=== PATIENT | female | born 1955 | race Caucasian/White ===

== ENCOUNTER → 2016-10-19 | Outpatient (CLI) | payer MEDICARE, MEDICAID ==
[2016-03-28 14:33] VITALS: BP 126/80
[~2016-10-19] MED LIST: APIX2.5T PO; APIX5TAB PO; CIPR500T94 PO; ESTRIOL PO; HYDR-2666 PO; HYDR12.53 PO; LEVO750T31 PO; PHEN-318 PO; POT CITRATE PO; SIMV40TA3 PO; SULF1TAB24 PO; WARF10TA PO; cipro
--- NOTE | 2016-10-19 16:32 | RAD ---
CT scan of the abdomen and pelvis without contrast 10/19/2016 Clinical history: CLL. History of renal calculi. Technique: After the oral administration of contrast only, contiguous, 5 mm axial sections were obtained through the abdomen and pelvis. One or more of the following individualized dose reduction techniques were utilized for this study: 1. Automated exposure control. 2. Adjustment of the mA and/or kV according to patient size. 3. Use of iterative reconstruction technique. Findings: Comparison study is dated 02/23/2014. Images through the lung bases demonstrate minimal dependent subsegmental atelectasis bilaterally. The liver, spleen, pancreas and adrenal glands are within normal limits. No focal abnormality of the left kidney is seen. Moderate to severe right hydronephrosis is seen. 3 nonobstructing calculi are seen involving the right kidney. These measure 1 mm to 3 mm in size. Moderate right hydroureter is noted. Within the distal right ureter 2 calculi are seen which measure 6 mm and 8 mm in size. The larger calculus is causing moderate to severe obstruction of the right collecting system. This calculus is approximately 8 cm superior to the expected location the right UVJ. Thinning of the cortex of the right kidney is noted. The double-J ureteral stent has been removed from the right collecting system since the previous examination. An IVC filter is again noted in place. Mild scattered atherosclerotic plaque formation seen involving the abdominal aorta. The abdominal aorta tapers normally. Surgical clips are seen within the gallbladder fossa consistent with a cholecystectomy. Patchy areas of increased attenuation are seen within the retroperitoneal and mesenteric fat essentially unchanged. Prominent retroperitoneal and mesenteric lymph nodes are seen essentially unchanged. No free fluid or free air is seen within the abdomen. There is no evidence of bowel obstruction. Images through the pelvis demonstrate the urinary bladder distended with urine. 2 calcification are seen in the expected location of the distal right ureter near the right UVJ which may represent nonobstructing distal ureteral calculi. They measure 2 to 4 mm in size. No free fluid is seen. Degenerative changes are seen involving the lower lumbar spine. Impression: A 8 mm calculus is seen involving the distal right ureter which is causing moderate to severe obstruction of the right collecting system.
== END | disposition home or self-care (01) ==
LOC: CT 11:48
PROVIDERS: ATTEND Nurse Practitioner Family
DX: N20.1 Calculus of ureter (principal)
CPT/HCPCS: 74176

== ENCOUNTER → 2016-11-10 | Outpatient (CLI) | payer MEDICARE ==
[2016-03-28 14:33] VITALS: BP 126/80
[~2016-11-10] MED LIST changes: -WARF10TA PO; +WARF10TA45 PO
[2016-11-10 14:46] LABS: BASO % 1 % (0-3); EOS % 5 % (0-3); HEMATOCRIT 49.2 % (36.0-47.0); HEMOGLOBIN 16.8 g/dL (12.0-15.5); LYMPH # 2.9 x10^3/uL (1.0-4.8); LYMPH % 38 % (24-48); MEAN CORPUSCULAR HEMOGLOBIN 32 pg (25-35); MEAN CORPUSCULAR HGB CONC 34 g/dL (31-37); MEAN CORPUSCULAR VOLUME 93 fL (79-100); MONO % 14 % (0-9); NEUT % 43 % (31-73); PLATELET COUNT 296 x10^3/uL (140-400); RED CELL DISTRIBUTION WIDTH 16.2 % (11.5-14.5); WHITE BLOOD COUNT 7.5 x10^3/uL (4.0-11.0)
[2016-11-10 14:52] LABS: CREATININE 1.5 mg/dL (0.6-1.0); GFR 35.2
[2016-11-10 14:55] LABS: CALCIUM 9.8 mg/dL (8.5-10.1)
== END | disposition home or self-care (01) ==
LOC: LAB 14:16
PROVIDERS: ATTEND Urology
DX: N20.0 Calculus of kidney (principal)
CPT/HCPCS: 36415; 80048; 85027

== ENCOUNTER 2016-12-06 19:08 | Inpatient (IN) | payer MEDICARE ==
[~2016-12-06] VITALS: Ht 162.6 cm; Wt 91.2 kg
[2016-12-06 19:27] LABS: BILIRUBIN,URINE NEGATIVE (NEG); GLUCOSE,URINE NEGATIVE (NEG); NITRITE,URINE NEGATIVE (NEG); PROTEIN,URINE 30 mg/dL (NEG-TRACE); UROBILINOGEN,URINE 0.2 mg/dL (0.2 mg/dL)
[2016-12-06 19:31] LABS: BACTERIA,URINE FEW /HPF (0-FEW); SQUAMOUS EPITHELIAL CELL,UR FEW /LPF; WBC,URINE TNTC /HPF (0-4)
[2016-12-06 19:40] LABS: BASO # 0.1 x10^3/uL (0.0-0.2); BASO % 1 % (0-3); EOS % 1 % (0-3); HEMATOCRIT 50.2 % (36.0-47.0); HEMOGLOBIN 16.5 g/dL (12.0-15.5); LYMPH # 2.7 x10^3/uL (1.0-4.8); LYMPH % 22 % (24-48); MEAN CORPUSCULAR HEMOGLOBIN 31 pg (25-35); MEAN CORPUSCULAR HGB CONC 33 g/dL (31-37); MEAN CORPUSCULAR VOLUME 95 fL (79-100); MONO % 12 % (0-9); NEUT % 65 % (31-73); PLATELET COUNT 282 x10^3/uL (140-400); RED BLOOD COUNT 5.28 x10^6/uL (3.50-5.40); RED CELL DISTRIBUTION WIDTH 16.2 % (11.5-14.5)
[2016-12-06] MEDS ORDERED: IV NORMAL SALINE 500ML BAG 500 ML IV ONE (19:45)
[2016-12-06] MEDS ORDERED: ONDANSETRON PF 4 MG/2 ML VIAL. IV ONE (19:45)
[2016-12-06] MEDS ORDERED: ACETAMINOPHEN 325 MG TABLET. PO ONE (19:45)
[2016-12-06 19:51] LABS: CALCIUM 10.4 mg/dL (8.5-10.1); CREATININE 1.6 mg/dL (0.6-1.0); GFR 32.7; POTASSIUM 3.8 mmol/L (3.5-5.1)
[2016-12-06 19:57] LABS: ALBUMIN 3.6 g/dL (3.4-5.0); ALBUMIN/GLOBULIN RATIO 0.7 (1.0-1.7); TOTAL BILIRUBIN 1.1 mg/dL (0.2-1.0); TOTAL PROTEIN 8.6 g/dL (6.4-8.2)
--- NOTE | 2016-12-06 20:02 | RAD ---
CT Abdomen and Pelvis without contrast History: LOWER ABDOMINAL PAIN; NAUSEA, history of urinary tract infection Technique: Noncontrast CT imaging was performed of the abdomen and pelvis. Multiplanar images are reviewed. Exposure: One or more of the following individualized dose reduction techniques were utilized for this examination: 1. Automated exposure control 2. Adjustment of the mA and/or kV according to patient size 3. Use of iterative reconstruction technique. Comparison: October 15, 2013 Findings: There is more focal infiltrate of the visualized left upper lobe. There is mild atelectasis of the lower lobes. Accurate evaluation of abdominal visceral organs is limited without intravenous contrast. There is no new obvious focal abnormality of the liver, spleen, pancreas. There is again diffuse hazy density of the mesenteric fat centrally and to the left, interspersed nonspecific nodes as seen previously. Dominant left mesenteric node measures 1.5 cm short axis dimension although stable. There is again inferior vena cava filter. There is again severe right hydronephrosis and moderate right hydroureter. There are 2 adjacent approximate 6 mm calculi in the mid right ureter and another calculus 5 mm just distally. There is also a 6 mm calculus at the right ureterovesical junction. Previously seen right ureteral stent has been removed. There are 4 right renal calculi, largest 3 mm. There is no left hydronephrosis or renal calculus. There is no adrenal nodularity. Accurate evaluation of bowel is limited without oral contrast. There is no significant bowel dilatation, free air, free fluid. There is retained stool greatest of the transverse and right colon. Impression: 1. There is severe right hydronephrosis and moderate right hydroureter, 4 calculi in the mid to distal right ureter. There are right renal calculi. 2. There is left upper lobe lung infiltrate. 3. Similar to 2013 exam, there is fairly diffuse hazy density of the central and left mesenteric fat with interspersed nonspecific nodes including enlarged node on the left. Etiology is uncertain. Electronically signed by: aFbricio Vasquez MD (12/06/2016 7:59 PM)
--- NOTE | 2016-12-06 20:05 | PHYS DOC ---
Past Medical History Past Medical History: Cancer, DVT, Kidney Stone, MRSA, Other Additional Past Medical Histor: CLL; BONE MARROW REPLACEMENT,EBSL Past Surgical History: Cholecystectomy, Other Additional Past Surgical Histo: HERNIA REPAIR; BMT Alcohol Use: Occasionally Drug Use: None Adult General Chief Complaint Chief Complaint: NAUSEA/VOMITING/DIARRHA HPI HPI 61-year-old female presenting the emergency department with suprapubic abdominal pain. She describes it as a cramping sensation in the lower abdomen nonradiating mild intermittent and present for the past 24-48 hrs. She is currently on Macrobid for antibiotic therapy for UTI. She has a history of being in sepsis. Review of systems is positive for nausea. Negative for vomiting fevers chills shortness of breath or chest pain. All other review of systems is negative unless otherwise noted in history of present illness. Review of Systems Review of Systems SEE ABOVE. Current Medications Current Medications Current Medications Medications (Trade) Dose Ordered Sig/Maile Start Time Stop Time Status Last Admin Dose Admin Acetaminophen (Tylenol) 650 mg 1X ONCE 12/06/16 19:45 12/06/16 19:46 DC 12/06/16 19:51 650 MG Ondansetron HCl (Zofran) 4 mg 1X ONCE 12/06/16 19:45 12/06/16 19:46 DC 12/06/16 19:51 4 MG Sodium Chloride 500 ml @ 500 mls/hr 1X ONCE 12/06/16 19:45 12/06/16 20:44 DC 12/06/16 19:52 500 MLS/HR Allergies Allergies Allergies Coded Allergies Type Severity Reaction Last Updated Verified Iodinated Contrast Media - Oral and Allergy Intermediate hives 03/27/16 Yes codeine Allergy Intermediate Gi upset, hives 11/16/13 Yes iodine Allergy Intermediate hives 11/16/13 Yes I S O L A T I O N *CONTACT* Allergy Unknown 11/14/14 Yes prochlorperazine edisylate Adverse Reaction Intermediate GI upset 02/26/14 Yes prochlorperazine maleate Adverse Reaction Intermediate GI upset 02/26/14 Yes Physical Exam Physical Exam Constitutional: Well developed, well nourished, no acute distress, non-toxic appearance. HENT: Normocephalic, atraumatic, bilateral external ears normal, oropharynx moist, no oral exudates, nose normal. [] Eyes: PERRLA, EOMI, conjunctiva normal, no discharge. [] Neck: Normal range of motion, no tenderness, supple, no stridor. [] Cardiovascular:Heart rate regular rhythm, no murmur Lungs & Thorax: Bilateral breath sounds clear to auscultation [] Abdomen: abd is soft and minamally tender in the suprapubic region , without rebound tenderness or guarding. Skin: Warm, dry, no erythema, no rash. Back: No tenderness, no CVA tenderness. [] Extremities: No tenderness, no cyanosis, no clubbing, ROM intact, no edema. [] Neurologic: Alert and oriented X 3, normal motor function, normal sensory function, no focal deficits noted. Psychologic: Affect normal, judgement normal, mood normal. [] Current Patient Data Vital Signs Vital Signs Date Time Temp Pulse Resp B/P (MAP) Pulse Ox O2 Delivery O2 Flow Rate FiO2 12/06/16 19:56 108 20 124/75 (91) 100 Room Air 12/06/16 19:24 99.1 99.1 Lab Values Laboratory Tests Test 12/06/16 19:15 12/06/16 19:30 Urine Collection Type Unknown Urine Color Yellow Urine Clarity Clear Urine pH 7.0 Urine Specific [place] 1.015 Urine Protein 30 mg/dL (NEG-TRACE) Urine Glucose (UA) Negative mg/dL (NEG) Urine Ketones (Stick) Negative mg/dL (NEG) Urine Blood Moderate (NEG) Urine Nitrite Negative (NEG) Urine Bilirubin Negative (NEG) Urine Urobilinogen Dipstick 0.2 mg/dL (0.2 mg/dL) Urine Leukocyte Esterase Large (NEG) Urine RBC 1-2 /HPF (0-2) Urine WBC Tntc /HPF (0-4) Urine Squamous Epithelial Cells Few /LPF Urine Bacteria Few /HPF (0-FEW) Urine Mucus Slight /LPF White Blood Count 12.0 x10^3/uL (4.0-11.0) H Red Blood Count 5.28 x10^6/uL (3.50-5.40) Hemoglobin 16.5 g/dL (12.0-15.5) H Hematocrit 50.2 % (36.0-47.0) H Mean Corpuscular Volume 95 fL (79-100) Mean Corpuscular Hemoglobin 31 pg (25-35) Mean Corpuscular Hemoglobin Concent 33 g/dL (31-37) Red Cell Distribution Width 16.2 % (11.5-14.5) H Platelet Count 282 x10^3/uL (140-400) Neutrophils (%) (Auto) 65 % (31-73) Lymphocytes (%) (Auto) 22 % (24-48) L Monocytes (%) (Auto) 12 % (0-9) H Eosinophils (%) (Auto) 1 % (0-3) Basophils (%) (Auto) 1 % (0-3) Neutrophils # (Auto) 7.7 x10^3uL (1.8-7.7) Lymphocytes # (Auto) 2.7 x10^3/uL (1.0-4.8) Monocytes # (Auto) 1.4 x10^3/uL (0.0-1.1) H Eosinophils # (Auto) 0.1 x10^3/uL (0.0-0.7) Basophils # (Auto) 0.1 x10^3/uL (0.0-0.2) Sodium Level 140 mmol/L (136-145) Potassium Level 3.8 mmol/L (3.5-5.1) Chloride Level 102 mmol/L (98-107) Carbon Dioxide Level 25 mmol/L (21-32) Anion Gap 13 (6-14) Blood Urea Nitrogen 14 mg/dL (7-20) Creatinine 1.6 mg/dL (0.6-1.0) H Estimated GFR (Cockcroft-Gault) 32.7 BUN/Creatinine Ratio 9 (6-20) Glucose Level 123 mg/dL (70-99) H Calcium Level 10.4 mg/dL (8.5-10.1) H Total Bilirubin 1.1 mg/dL (0.2-1.0) H Aspartate Amino Transferase (AST) 47 U/L (15-37) H Alanine Aminotransferase (ALT) 39 U/L (14-59) Alkaline Phosphatase 162 U/L (46-116) H Troponin I Quantitative < 0.017 ng/mL (0.000-0.055) Total Protein 8.6 g/dL (6.4-8.2) H Albumin 3.6 g/dL (3.4-5.0) Albumin/Globulin Ratio 0.7 (1.0-1.7) L Lipase 195 U/L (73-393) Laboratory Tests 12/06/16 19:30 Laboratory Tests 12/06/16 19:30 EKG EKG [] Radiology/Procedures Radiology/Procedures [] Course & Med Decision Making Course & Med Decision Making Pertinent Labs and Imaging studies reviewed. (See chart for details) [] 61-year-old female presenting to the ED with N/V and suprapubic abd pain. Afebrile with tachycardia. Otherwise blood pressure within normal limits. IV established and blood work taken. Saline given. CT the abdomen pelvis obtained. Urinalysis shows UTI. Patient is currently on antibiotic therapy. Review of recent cultures show susceptible organisms. CT the abdomen and pelvis showed pneumonia. Given the patient's pneumonia and urinary tract infection with failure to respond outpatient antibiotics, the patient was admitted for IV antibiotics. She was given broad-spectrum antibiotics and infectious disease was consulted. The patient was then admitted to her primary care physician for further evaluation workup and care. Dragon Disclaimer Dragon Disclaimer This electronic medical record was generated, in whole or in part, using a voice recognition dictation system. Departure Departure Impression: Primary Impression: UTI (lower urinary tract infection) Additional Impressions: Abdominal pain Pneumonia Disposition: ADMITTED INPATIENT Condition: STABLE Referrals: LIZ MANZO MD (PCP) Patient Instructions: Urinary Tract Infection Problem Qualifiers PATRICK EVANS MD December 06, 2016 20:05
[2016-12-06] MEDS ORDERED: MORPHINE SULFATE 2 MG/ML DISP.SYRIN. IV PRN (20:15)
[2016-12-06] MEDS ORDERED: ONDANSETRON PF 4 MG/2 ML VIAL. IV PRN (20:15)
[2016-12-06] MEDS ORDERED: PIP/TAZO PER PHARMACY MC PRN (21:15)
[2016-12-06] MEDS ORDERED: VANCOMYCIN PER PHARMACY MC PRN (21:15)
[2016-12-06 21:30] VITALS: BP 109/65
[2016-12-06] MEDS ORDERED: PIPERACILLIN/TAZOBACTAM 3.375 GM in IV NORMAL SALINE 50ML 50 ML IV ONE (21:30)
[2016-12-06] MEDS: IV NORMAL SALINE 1000ML BAG 1,000 ML IV SCH (21:38)
--- NOTE | 2016-12-06 21:48 | ACF ---
Admit Criteria Forms Admit Criteria Forms Admit Criteria Forms URINARY COMPLICATIONS Clinical Indications for Inpatient Care (Place 'X' for any and all applicable criteria): Ongoing inpatient care may be indicated for urinary complications with ANY ONE of the following: [X ]I. Urinary tract infection requiring inpatient care as indicated by ANY ONE of the following(8)(19)(20): [ ]a) Severe symptoms (eg, high fever, severe pain) [ ]b) Vomiting or dehydration requiring ongoing inpatient care [X]c) IV antibiotic needs that cannot be managed at lower level of care [ ]d) Hemodynamic instability [ ]e) Obstruction of collecting system by stone or tumor [ ]II. Urinary retention requiring drainage or surgery (3)(4)(5)(17)(18) [ ]III. Renal failure (Use Renal Failure Criteria for further information.) [ ]IV. Oliguria(30) [ ]V. Post obstructive diuresis requiring close monitoring of urine output and intravenous compensation for excessive fluid losses(33) Extended stay beyond goal length of stay for primary condition may be needed until ALL of the following are present(3)(4)(5)(8): [ ]a) Renal function (creatinine) at baseline, or daily decreases in creatinine consistent with renal function return [ ]b) Voiding adequately or with urinary catheter or percutaneous suprapubic tube and management regimen in place that is performable at lower level of care. [ ]c) Urine output adequate [ ]d) Fever absent or resolving [ ]e) Infection absent or treatable at next level of care The original [employer] content created by [employer] has been revised. The portions of the content which have been revised are identified through the use of italic text or in bold, and [facility] has neither reviewed nor approved the modified material. All other unmodified content is copyright [facility] Please see references footnoted in the original [facility] center[facility] edition 2016 TORIE WEATHERS December 06, 2016 21:48
[2016-12-06] MEDS ORDERED: VANCOMYCIN 2 GM in IV NORMAL SALINE 500ML BAG 500 ML IV ONE (22:00)
[2016-12-06 22:49] VITALS: BP 96/58
[2016-12-07 03:00] VITALS: BP 129/76
[2016-12-07] MEDS ORDERED: diphenhydrAMINE 50 MG/ML VIAL IVP ONE (03:00)
[2016-12-07] MEDS ORDERED: PIPERACILLIN/TAZOBACTAM 2.25 GM in IV NORMAL SALINE 50ML 50 ML IV SCH (06:00)
[2016-12-07 07:30] VITALS: BP 125/69
[2016-12-07 07:37] LABS: BASO # 0.1 x10^3/uL (0.0-0.2); BASO % 1 % (0-3); EOS % 1 % (0-3); HEMATOCRIT 45.3 % (36.0-47.0); HEMOGLOBIN 14.9 g/dL (12.0-15.5); LYMPH # 2.7 x10^3/uL (1.0-4.8); LYMPH % 24 % (24-48); MEAN CORPUSCULAR HEMOGLOBIN 32 pg (25-35); MEAN CORPUSCULAR HGB CONC 33 g/dL (31-37); MEAN CORPUSCULAR VOLUME 97 fL (79-100); MONO % 17 % (0-9); NEUT % 58 % (31-73); PLATELET COUNT 243 x10^3/uL (140-400); RED BLOOD COUNT 4.69 x10^6/uL (3.50-5.40); RED CELL DISTRIBUTION WIDTH 16.2 % (11.5-14.5); WHITE BLOOD COUNT 11.5 x10^3/uL (4.0-11.0)
[2016-12-07 07:45] LABS: CALCIUM 9.6 mg/dL (8.5-10.1); CREATININE 1.6 mg/dL (0.6-1.0); GFR 32.7; POTASSIUM 4.4 mmol/L (3.5-5.1)
--- NOTE | 2016-12-07 08:24 | PDOC1 ---
History and Physical Date of Admission Date of Admission DATE: 12/07/16 TIME: 08:18 Identification/Chief Complaint Chief Complaint abd pain Problems: Source Source: Chart review, Patient History of Present Illness History of Present Illness Ms. Burton is a 61-year-old female admit w/ worsening suprapubic abdominal pain. She describes it as a cramping sensation in the lower abdomen. She feels better this AM, but had a rough night, with a skin reaction to vancomycin, reddened skin, and weakness.; She has recurrent UTI, was nonradiating mild intermittent and present for the past 24-48 hrs. She is currently on Macrobid for antibiotic therapy for UTI. She has a history of being in sepsis. Review of systems is positive for nausea. Negative for vomiting fevers chills shortness of breath or chest pain. All other review of systems is negative unless otherwise noted in history of present illness. Past Medical History Past Medical History Allo BMT 11 years ago for CLL, has been off immunesuppression almost 9 years Cardiovascular: HTN Pulmonary: Other CENTRAL NERVOUS SYSTEM: TIA Heme/Onc: Cancer, Other Musculoskeletal: low back pain Rheumatologic: No pertinent hx Infectious disease: No pertinent hx Renal/: UTI, Other Past Surgical History Past Surgical History: Hernia Repair, Hysterectomy Family History Family History: No Significant Social History Smoke: No ALCOHOL: none Drugs: None Current Problem List Problem List Problems Medical Problems: (1) Abdominal pain Status: Acute (2) Pneumonia Status: Acute (3) UTI (lower urinary tract infection) Status: Acute Problems: Current Medications Current Medications Current Medications Sodium Chloride 500 ml @ 500 mls/hr 1X ONCE IV Last administered on 19:52; Start 12/06/16 at 19:45; Stop 12/06/16 at 20:44; Status DC Ondansetron HCl (Zofran) 4 mg 1X ONCE IV Last administered on 12/06/16 19:51 ; Start 12/06/16 at 19:45; Stop 12/06/16 at 19:46; Status DC Acetaminophen (Tylenol) 650 mg 1X ONCE PO Last administered on 12/06/16 19:51 ; Start 12/06/16 at 19:45; Stop 12/06/16 at 19:46; Status DC Ondansetron HCl (Zofran) 4 mg PRN Q8HRS PRN IV NAUSEA/VOMITING; Start 12/06/16 at 20:15; Stop 12/07/16 at 20:14 Morphine Sulfate 2 mg PRN Q2HR PRN IV PAIN; Start 12/06/16 at 20:15; Stop 12/07 at 20:14 Sodium Chloride 1,000 ml @ 125 mls/hr Q8H IV Last administered on 12/06/16 21 :38; Start 12/06/16 at 20:13; Stop 12/07/16 at 20:12 Vancomycin HCl (Vanco Per Pharmacy) 1 each PRN DAILY PRN MC SEE COMMENTS Last administered on 12/07/16 02:17; Start 12/06/16 at 21:15; Stop 12/07/16 at 02:28 ; Status DC Piperacillin Sod/ Tazobactam Sod (Zosyn Per Pharmacy) 1 each PRN DAILY PRN MC SEE COMMENTS; Start 12/06/16 at 21:15 Vancomycin HCl 2 gm/Sodium Chloride 500 ml @ 250 mls/hr 1X ONCE IV Last administered on 12/06/16 22:00; Start 12/06/16 at 22:00; Stop 12/07/16 at 02:23 ; Status DC Piperacillin Sod/ Tazobactam Sod 3.375 gm/Sodium Chloride 50 ml @ 100 mls/hr 1X ONCE IV Last administered on 12/06/16 21:38; Start 12/06/16 at 21:30; Stop 12/06/16 at 21:59; Status DC Piperacillin Sod/ Tazobactam Sod 2.25 gm/Sodium Chloride 50 ml @ 100 mls/hr Q6HRS IV Last administered on 12/07/16 05:51; Start 12/07/16 at 06:00 Vancomycin HCl 1.5 gm/Sodium Chloride 500 ml @ 250 mls/hr Q24H IV ; Start 12/07 at 22:00; Stop 12/07/16 at 22:00; Status DC Vancomycin HCl 1 each 1X ONCE MC ; Start 12/08/16 at 21:30; Stop 12/08/16 at 21 :30; Status DC Diphenhydramine HCl (Benadryl) 25 mg 1X ONCE IVP Last administered on 02:42; Start 12/07/16 at 03:00; Stop 12/07/16 at 03:01; Status DC Active Scripts Active Hydrocodone-Apap 5-325 (Hydrocodone Bit/Acetaminophen) 1 Each Tablet 1 Tab PO PRN Q4HRS PRN Eliquis (Apixaban) 5 Mg Tablet 5 Mg PO BID 30 Days Eliquis (Apixaban) 5 Mg Tablet 10 Mg PO BID 7 Days Allergies Allergies: Coded Allergies: Iodinated Contrast Media - Oral and (Verified Allergy, Intermediate, hives , 03/27/16) codeine (Verified Allergy, Intermediate, Gi upset, hives, 11/16/13) iodine (Verified Allergy, Intermediate, hives, 11/16/13) I S O L A T I O N *CONTACT* (Verified Allergy, Unknown, 11/14/14) + mrsa, + ESBL prochlorperazine edisylate (Verified Adverse Reaction, Intermediate, GI upset, 02/26/14) prochlorperazine maleate (Verified Adverse Reaction, Intermediate, GI upset, 02/26/14) ROS General: No: Chills, Night Sweats, Fatigue, Malaise, Appetite, Other PSYCHOLOGICAL ROS: No: Anxiety, Behavioral Disorder, Concentration difficultie , Decreased libido, Depression, Disorientation, Hallucinations, Hostility, Irritablity, Memory difficulties, Mood Swings, Obsessive thoughts, Physical abuse, Sexual abuse, Sleep disturbances, Suicidal ideation, Other Eyes: Yes Dry eyes, Yes Eye Pain, Yes Itchy Eyes, Yes Other, No Blurry vision, No Decreased vision, No Double vision, No Excessive tearing , No Loss of vision, No Photophobia, No Scotomata, No Uses contacts, No Uses glasses HEENT: No: Heacaches, Visual Changes, Hearing change, Nasal congestion, Nasal discharge, Oral lesions, Sinus pain, Sore Throat, Epistaxis, Sneezing, Snoring, Tinnitus, Vertigo, Vocal changes, Other Respiratory: No: Cough, Hemoptysis, Orthopnea, Pleuritic Pain, Shortness of breath, SOB with excertion, Sputum Changes, Stridor, Tachypnea, Wheezing, Other Cardiovascular: No Chest Pain, No Palpitations, No Orthopnea, No Paroxysmal Noc. Dyspnea, No Edema, No Lt Headedness, No Other Gastrointestinal: No Nausea, No Vomiting, No Abdominal Pain, No Diarrhea, No Constipation, No Melena, No Hematochezia, No Other Genitourinary: No Dysuria, No Frequency, No Incontinence, No Hematuria, No Retention, No Discharge, No Urgency, No Pain, No Flank Pain, No Other, No , No , No , No , No , No , No Musculoskeletal: Yes Joint Pain, No Gait Disturbance, No Joint Stiffness, No Joint Swelling, No Muscle Pain, No Muscular Weakness, No Pain In:, No Swelling In:, No Other Neurological: No Behavorial Changes, No Bowel/Bladder ControlChng, No Confusion , No Dizziness, No Gait Disturbance, No Headaches, No Impaired Coord/balance, No Memory Loss, No Numbness/Tingling, No Seizures, No Speech Problems, No Tremors, No Visual Changes, No Weakness, No Other Skin: Yes Dry Skin, Yes Rash, Yes Skin Lesion Changes, No Eczema, No Hair Changes, No Lumps, No Mole Changes, No Mottling, No Nail Changes, No Pruritus, No Other, No Acne Physical Exam General: Alert, Oriented X3, Cooperative, No acute distress HEENT: PERRLA, Other (sclera injected) Lungs: Normal air movement Heart: no gallops, no murmurs Abdomen: Normal bowel sounds (tender lower, not radiating, no guarding), Soft Extremities: No clubbing, No cyanosis, No edema Skin: No breakdown, No significant lesion Neuro: Normal gait, Sensation intact Psych/Mental Status: Mood NL Vitals Vitals Vital Signs Date Time Temp Pulse Resp B/P (MAP) Pulse Ox O2 Delivery O2 Flow Rate FiO2 12/07/16 03:00 98.8 91 18 129/76 (93) 95 Room Air 98.8 Labs Labs Laboratory Tests Test 12/06/16 19:15 12/06/16 19:30 12/07/16 07:25 Urine Collection Type Unknown Urine Color Yellow Urine Clarity Clear Urine pH 7.0 Urine Specific [place] 1.015 Urine Protein 30 mg/dL (NEG-TRACE) Urine Glucose (UA) Negative mg/dL (NEG) Urine Ketones (Stick) Negative mg/dL (NEG) Urine Blood Moderate (NEG) Urine Nitrite Negative (NEG) Urine Bilirubin Negative (NEG) Urine Urobilinogen Dipstick 0.2 mg/dL (0.2 mg/dL) Urine Leukocyte Esterase Large (NEG) Urine RBC 1-2 /HPF (0-2) Urine WBC Tntc /HPF (0-4) Urine Squamous Epithelial Cells Few /LPF Urine Bacteria Few /HPF (0-FEW) Urine Mucus Slight /LPF White Blood Count 12.0 x10^3/uL (4.0-11.0) 11.5 x10^3/uL (4.0-11.0) Red Blood Count 5.28 x10^6/uL (3.50-5.40) 4.69 x10^6/uL (3.50-5.40) Hemoglobin 16.5 g/dL (12.0-15.5) 14.9 g/dL (12.0-15.5) Hematocrit 50.2 % (36.0-47.0) 45.3 % (36.0-47.0) Mean Corpuscular Volume 95 fL (79-100) 97 fL (79-100) Mean Corpuscular Hemoglobin 31 pg (25-35) 32 pg (25-35) Mean Corpuscular Hemoglobin Concent 33 g/dL (31-37) 33 g/dL (31-37) Red Cell Distribution Width 16.2 % (11.5-14.5) 16.2 % (11.5-14.5) Platelet Count 282 x10^3/uL (140-400) 243 x10^3/uL (140-400) Neutrophils (%) (Auto) 65 % (31-73) 58 % (31-73) Lymphocytes (%) (Auto) 22 % (24-48) 24 % (24-48) Monocytes (%) (Auto) 12 % (0-9) 17 % (0-9) Eosinophils (%) (Auto) 1 % (0-3) 1 % (0-3) Basophils (%) (Auto) 1 % (0-3) 1 % (0-3) Neutrophils # (Auto) 7.7 x10^3uL (1.8-7.7) 6.6 x10^3uL (1.8-7.7) Lymphocytes # (Auto) 2.7 x10^3/uL (1.0-4.8) 2.7 x10^3/uL (1.0-4.8) Monocytes # (Auto) 1.4 x10^3/uL (0.0-1.1) 2.0 x10^3/uL (0.0-1.1) Eosinophils # (Auto) 0.1 x10^3/uL (0.0-0.7) 0.1 x10^3/uL (0.0-0.7) Basophils # (Auto) 0.1 x10^3/uL (0.0-0.2) 0.1 x10^3/uL (0.0-0.2) Sodium Level 140 mmol/L (136-145) 141 mmol/L (136-145) Potassium Level 3.8 mmol/L (3.5-5.1) 4.4 mmol/L (3.5-5.1) Chloride Level 102 mmol/L (98-107) 108 mmol/L (98-107) Carbon Dioxide Level 25 mmol/L (21-32) 25 mmol/L (21-32) Anion Gap 13 (6-14) 8 (6-14) Blood Urea Nitrogen 14 mg/dL (7-20) 16 mg/dL (7-20) Creatinine 1.6 mg/dL (0.6-1.0) 1.6 mg/dL (0.6-1.0) Estimated GFR (Cockcroft-Gault) 32.7 32.7 BUN/Creatinine Ratio 9 (6-20) Glucose Level 123 mg/dL (70-99) 107 mg/dL (70-99) Calcium Level 10.4 mg/dL (8.5-10.1) 9.6 mg/dL (8.5-10.1) Total Bilirubin 1.1 mg/dL (0.2-1.0) Aspartate Amino Transf (AST/SGOT) 47 U/L (15-37) Alanine Aminotransferase (ALT/SGPT) 39 U/L (14-59) Alkaline Phosphatase 162 U/L (46-116) Troponin I Quantitative < 0.017 ng/mL (0.000-0.055) Total Protein 8.6 g/dL (6.4-8.2) Albumin 3.6 g/dL (3.4-5.0) Albumin/Globulin Ratio 0.7 (1.0-1.7) Lipase 195 U/L (73-393) Laboratory Tests Test 12/06/16 19:15 12/06/16 19:30 12/07/16 07:25 Urine Collection Type Unknown Urine Color Yellow Urine Clarity Clear Urine pH 7.0 Urine Specific [place] 1.015 Urine Protein 30 mg/dL (NEG-TRACE) Urine Glucose (UA) Negative mg/dL (NEG) Urine Ketones (Stick) Negative mg/dL (NEG) Urine Blood Moderate (NEG) Urine Nitrite Negative (NEG) Urine Bilirubin Negative (NEG) Urine Urobilinogen Dipstick 0.2 mg/dL (0.2 mg/dL) Urine Leukocyte Esterase Large (NEG) Urine RBC 1-2 /HPF (0-2) Urine WBC Tntc /HPF (0-4) Urine Squamous Epithelial Cells Few /LPF Urine Bacteria Few /HPF (0-FEW) Urine Mucus Slight /LPF White Blood Count 12.0 x10^3/uL (4.0-11.0) 11.5 x10^3/uL (4.0-11.0) Red Blood Count 5.28 x10^6/uL (3.50-5.40) 4.69 x10^6/uL (3.50-5.40) Hemoglobin 16.5 g/dL (12.0-15.5) 14.9 g/dL (12.0-15.5) Hematocrit 50.2 % (36.0-47.0) 45.3 % (36.0-47.0) Mean Corpuscular Volume 95 fL (79-100) 97 fL (79-100) Mean Corpuscular Hemoglobin 31 pg (25-35) 32 pg (25-35) Mean Corpuscular Hemoglobin Concent 33 g/dL (31-37) 33 g/dL (31-37) Red Cell Distribution Width 16.2 % (11.5-14.5) 16.2 % (11.5-14.5) Platelet Count 282 x10^3/uL (140-400) 243 x10^3/uL (140-400) Neutrophils (%) (Auto) 65 % (31-73) 58 % (31-73) Lymphocytes (%) (Auto) 22 % (24-48) 24 % (24-48) Monocytes (%) (Auto) 12 % (0-9) 17 % (0-9) Eosinophils (%) (Auto) 1 % (0-3) 1 % (0-3) Basophils (%) (Auto) 1 % (0-3) 1 % (0-3) Neutrophils # (Auto) 7.7 x10^3uL (1.8-7.7) 6.6 x10^3uL (1.8-7.7) Lymphocytes # (Auto) 2.7 x10^3/uL (1.0-4.8) 2.7 x10^3/uL (1.0-4.8) Monocytes # (Auto) 1.4 x10^3/uL (0.0-1.1) 2.0 x10^3/uL (0.0-1.1) Eosinophils # (Auto) 0.1 x10^3/uL (0.0-0.7) 0.1 x10^3/uL (0.0-0.7) Basophils # (Auto) 0.1 x10^3/uL (0.0-0.2) 0.1 x10^3/uL (0.0-0.2) Sodium Level 140 mmol/L (136-145) 141 mmol/L (136-145) Potassium Level 3.8 mmol/L (3.5-5.1) 4.4 mmol/L (3.5-5.1) Chloride Level 102 mmol/L (98-107) 108 mmol/L (98-107) Carbon Dioxide Level 25 mmol/L (21-32) 25 mmol/L (21-32) Anion Gap 13 (6-14) 8 (6-14) Blood Urea Nitrogen 14 mg/dL (7-20) 16 mg/dL (7-20) Creatinine 1.6 mg/dL (0.6-1.0) 1.6 mg/dL (0.6-1.0) Estimated GFR (Cockcroft-Gault) 32.7 32.7 BUN/Creatinine Ratio 9 (6-20) Glucose Level 123 mg/dL (70-99) 107 mg/dL (70-99) Calcium Level 10.4 mg/dL (8.5-10.1) 9.6 mg/dL (8.5-10.1) Total Bilirubin 1.1 mg/dL (0.2-1.0) Aspartate Amino Transf (AST/SGOT) 47 U/L (15-37) Alanine Aminotransferase (ALT/SGPT) 39 U/L (14-59) Alkaline Phosphatase 162 U/L (46-116) Troponin I Quantitative < 0.017 ng/mL (0.000-0.055) Total Protein 8.6 g/dL (6.4-8.2) Albumin 3.6 g/dL (3.4-5.0) Albumin/Globulin Ratio 0.7 (1.0-1.7) Lipase 195 U/L (73-393) VTE Prophylaxis Ordered VTE Prophylaxis Devices: Yes VTE Pharmacological Prophylaxi: Yes Assessment/Plan Assessment/Plan UTI sepsis injected eyes, concern for conjuctivitis,, ID to start gent eye drops CKD 3 dehydration weakness, aq. obesity, BMI 35 KASSANDRA BURNETT MD December 07, 2016 08:24
--- NOTE | 2016-12-07 08:36 | PDOC ---
Infectious Disease Note ROS ROS GEN: Denies fevers, chills, sweats HEENT: Denies blurred vision, sore throat CV: Denies chest pain RESP: Denies shortness of air, cough GI: Denies n/v/d NEURO: Denies confusion, dizziness MSK: Denies weakness, joint pain/swelling Vital Sign Vital Signs Vital Signs Date Time Temp Pulse Resp B/P (MAP) Pulse Ox O2 Delivery O2 Flow Rate FiO2 12/07/16 03:00 98.8 91 18 129/76 (93) 95 Room Air 98.8 Physical Exam PHYSICAL EXAM GENERAL: NAD, Alert HEENT: PERRL, OC/OP NECK: Supple, no JVD, no LN LUNGS: Clear HEART: S1S2, no gallop, no murmur ABD: Soft, NT, no organomegaly, no rebound EXT: No edema, no cyanosis [employer]: Alert, oriented x 3, no focal neurologic deficit SKIN: No rash IV: ok Labs Lab Laboratory Tests Test 12/06/16 19:15 12/06/16 19:30 12/07/16 07:25 Urine Collection Type Unknown Urine Color Yellow Urine Clarity Clear Urine pH 7.0 Urine Specific [place] 1.015 Urine Protein 30 mg/dL (NEG-TRACE) Urine Glucose (UA) Negative mg/dL (NEG) Urine Ketones (Stick) Negative mg/dL (NEG) Urine Blood Moderate (NEG) Urine Nitrite Negative (NEG) Urine Bilirubin Negative (NEG) Urine Urobilinogen Dipstick 0.2 mg/dL (0.2 mg/dL) Urine Leukocyte Esterase Large (NEG) Urine RBC 1-2 /HPF (0-2) Urine WBC Tntc /HPF (0-4) Urine Squamous Epithelial Cells Few /LPF Urine Bacteria Few /HPF (0-FEW) Urine Mucus Slight /LPF White Blood Count 12.0 x10^3/uL (4.0-11.0) 11.5 x10^3/uL (4.0-11.0) Red Blood Count 5.28 x10^6/uL (3.50-5.40) 4.69 x10^6/uL (3.50-5.40) Hemoglobin 16.5 g/dL (12.0-15.5) 14.9 g/dL (12.0-15.5) Hematocrit 50.2 % (36.0-47.0) 45.3 % (36.0-47.0) Mean Corpuscular Volume 95 fL (79-100) 97 fL (79-100) Mean Corpuscular Hemoglobin 31 pg (25-35) 32 pg (25-35) Mean Corpuscular Hemoglobin Concent 33 g/dL (31-37) 33 g/dL (31-37) Red Cell Distribution Width 16.2 % (11.5-14.5) 16.2 % (11.5-14.5) Platelet Count 282 x10^3/uL (140-400) 243 x10^3/uL (140-400) Neutrophils (%) (Auto) 65 % (31-73) 58 % (31-73) Lymphocytes (%) (Auto) 22 % (24-48) 24 % (24-48) Monocytes (%) (Auto) 12 % (0-9) 17 % (0-9) Eosinophils (%) (Auto) 1 % (0-3) 1 % (0-3) Basophils (%) (Auto) 1 % (0-3) 1 % (0-3) Neutrophils # (Auto) 7.7 x10^3uL (1.8-7.7) 6.6 x10^3uL (1.8-7.7) Lymphocytes # (Auto) 2.7 x10^3/uL (1.0-4.8) 2.7 x10^3/uL (1.0-4.8) Monocytes # (Auto) 1.4 x10^3/uL (0.0-1.1) 2.0 x10^3/uL (0.0-1.1) Eosinophils # (Auto) 0.1 x10^3/uL (0.0-0.7) 0.1 x10^3/uL (0.0-0.7) Basophils # (Auto) 0.1 x10^3/uL (0.0-0.2) 0.1 x10^3/uL (0.0-0.2) Sodium Level 140 mmol/L (136-145) 141 mmol/L (136-145) Potassium Level 3.8 mmol/L (3.5-5.1) 4.4 mmol/L (3.5-5.1) Chloride Level 102 mmol/L (98-107) 108 mmol/L (98-107) Carbon Dioxide Level 25 mmol/L (21-32) 25 mmol/L (21-32) Anion Gap 13 (6-14) 8 (6-14) Blood Urea Nitrogen 14 mg/dL (7-20) 16 mg/dL (7-20) Creatinine 1.6 mg/dL (0.6-1.0) 1.6 mg/dL (0.6-1.0) Estimated GFR (Cockcroft-Gault) 32.7 32.7 BUN/Creatinine Ratio 9 (6-20) Glucose Level 123 mg/dL (70-99) 107 mg/dL (70-99) Calcium Level 10.4 mg/dL (8.5-10.1) 9.6 mg/dL (8.5-10.1) Total Bilirubin 1.1 mg/dL (0.2-1.0) Aspartate Amino Transf (AST/SGOT) 47 U/L (15-37) Alanine Aminotransferase (ALT/SGPT) 39 U/L (14-59) Alkaline Phosphatase 162 U/L (46-116) Troponin I Quantitative < 0.017 ng/mL (0.000-0.055) Total Protein 8.6 g/dL (6.4-8.2) Albumin 3.6 g/dL (3.4-5.0) Albumin/Globulin Ratio 0.7 (1.0-1.7) Lipase 195 U/L (73-393) Micro 1. There is severe right hydronephrosis and moderate right hydroureter, 4 calculi in the mid to distal right ureter. There are right renal calculi. 2. There is left upper lobe lung infiltrate. 3. Similar to 2014 exam, there is fairly diffuse hazy density of the central and left mesenteric fat with interspersed nonspecific nodes including enlarged node on the left. Etiology is uncertain. Electronically signed by: Fabricio Vasquez MD (12/06/2016 7:59 PM) Objective Assessment Fever Hydronephrosis/ureter on right UTI - POA Vanc reaction - redmans Leukocytosis Conjunctivitis Left infiltrate H/o MRSA and ESBL H/o BMT off immunosuppresives Plan Plan of Care Change to Meropenem Add Cipro eye drops F/u labs and cults Vanc should be ok if needed only run at a slower rate Thank you D/w Dr. Crawford # [id number] YUMIKO CAMPOS MD December 07, 2016 08:36
[2016-12-07] MEDS ORDERED: ANTI-COAG MONITOR BY PHARMACY. MC PRN (08:45)
[2016-12-07 10:05] LABS: % EOS 4 % (0-5)
[2016-12-07 10:07] LABS: % BASOS 1 % (0-3); ANISOCYTOSIS SLIGHT; PLT ESTIMATE ADEQUATE (ADEQUATE)
--- NOTE | 2016-12-07 10:33 | PDOC2 ---
CONSULT Date of Consult Date of Consult DATE: 12/07/16 TIME: 10:25 Reason for Consult Reason for Consult: ^ed Creat Referring Physician Referring Physician: Dr Garcia Identification/Chief Complaint Chief Complaint N, WELCH and Chills Problems: Source Source: Chart review, Patient Past Medical History Cardiovascular: HTN Pulmonary: Other CENTRAL NERVOUS SYSTEM: TIA Heme/Onc: Cancer, Other Musculoskeletal: low back pain Rheumatologic: No pertinent hx Infectious disease: No pertinent hx Renal/: UTI, Other Past Surgical History Past Surgical History: Hernia Repair, Hysterectomy Family History Family History: No Significant, Kidney Disease (paternal GM was on dialysis) Social History No ALCOHOL: none Drugs: None Lives: with Family Current Problem List Problem List Problems Medical Problems: (1) Abdominal pain Status: Acute (2) Pneumonia Status: Acute (3) UTI (lower urinary tract infection) Status: Acute Current Medications Current Medications Current Medications Sodium Chloride 500 ml @ 500 mls/hr 1X ONCE IV Last administered on 19:52; Start 12/06/16 at 19:45; Stop 12/06/16 at 20:44; Status DC Ondansetron HCl (Zofran) 4 mg 1X ONCE IV Last administered on 12/06/16 19:51 ; Start 12/06/16 at 19:45; Stop 12/06/16 at 19:46; Status DC Acetaminophen (Tylenol) 650 mg 1X ONCE PO Last administered on 12/06/16 19:51 ; Start 12/06/16 at 19:45; Stop 12/06/16 at 19:46; Status DC Ondansetron HCl (Zofran) 4 mg PRN Q8HRS PRN IV NAUSEA/VOMITING; Start 12/06/16 at 20:15; Stop 12/07/16 at 20:14 Morphine Sulfate 2 mg PRN Q2HR PRN IV PAIN; Start 12/06/16 at 20:15; Stop 12/07 at 20:14 Sodium Chloride 1,000 ml @ 125 mls/hr Q8H IV Last administered on 12/06/16 21 :38; Start 12/06/16 at 20:13; Stop 12/07/16 at 20:12 Vancomycin HCl (Vanco Per Pharmacy) 1 each PRN DAILY PRN MC SEE COMMENTS Last administered on 12/07/16 02:17; Start 12/06/16 at 21:15; Stop 12/07/16 at 02:28 ; Status DC Piperacillin Sod/ Tazobactam Sod (Zosyn Per Pharmacy) 1 each PRN DAILY PRN MC SEE COMMENTS; Start 12/06/16 at 21:15; Stop 12/07/16 at 08:28; Status DC Vancomycin HCl 2 gm/Sodium Chloride 500 ml @ 250 mls/hr 1X ONCE IV Last administered on 12/06/16 22:00; Start 12/06/16 at 22:00; Stop 12/07/16 at 02:23 ; Status DC Piperacillin Sod/ Tazobactam Sod 3.375 gm/Sodium Chloride 50 ml @ 100 mls/hr 1X ONCE IV Last administered on 12/06/16 21:38; Start 12/06/16 at 21:30; Stop 12/06/16 at 21:59; Status DC Piperacillin Sod/ Tazobactam Sod 2.25 gm/Sodium Chloride 50 ml @ 100 mls/hr Q6HRS IV Last administered on 12/07/16 05:51; Start 12/07/16 at 06:00; Stop at 08:28; Status DC Vancomycin HCl 1.5 gm/Sodium Chloride 500 ml @ 250 mls/hr Q24H IV ; Start 12/07 at 22:00; Stop 12/07/16 at 22:00; Status DC Vancomycin HCl 1 each 1X ONCE MC ; Start 12/08/16 at 21:30; Stop 12/08/16 at 21 :30; Status DC Diphenhydramine HCl (Benadryl) 25 mg 1X ONCE IVP Last administered on 02:42; Start 12/07/16 at 03:00; Stop 12/07/16 at 03:01; Status DC Artificial Tears (Artificial Tears) 1 drop PRN Q15MIN PRN OU DRY EYE; Start at 08:30 Meropenem 500 mg/ Sodium Chloride 50 ml @ 100 mls/hr Q6HRS IV ; Start 12/07/16 at 12:00 Ciprofloxacin (Ciloxan Ophth) 1 drop QID OU ; Start 12/07/16 at 09:00 Apixaban (Eliquis) 5 mg BID PO ; Start 12/07/16 at 09:00 Acetaminophen/ Hydrocodone Bitart (Lortab 5/325) 1 tab PRN Q4HRS PRN PO PAIN; Start 12/07/16 at 08:45 Info (Anti-Coagulation Monitoring By Pharmacy) 1 each PRN DAILY PRN MC SEE COMMENTS; Start 12/07/16 at 08:45 Active Scripts Active Hydrocodone-Apap 5-325 (Hydrocodone Bit/Acetaminophen) 1 Each Tablet 1 Tab PO PRN Q4HRS PRN Eliquis (Apixaban) 5 Mg Tablet 5 Mg PO BID 30 Days Eliquis (Apixaban) 5 Mg Tablet 10 Mg PO BID 7 Days Allergies Allergies: Coded Allergies: Iodinated Contrast Media - Oral and (Verified Allergy, Intermediate, hives , 03/27/16) codeine (Verified Allergy, Intermediate, Gi upset, hives, 11/16/13) iodine (Verified Allergy, Intermediate, hives, 11/16/13) I S O L A T I O N *CONTACT* (Verified Allergy, Unknown, 11/14/14) + mrsa, + ESBL prochlorperazine edisylate (Verified Adverse Reaction, Intermediate, GI upset, 02/26/14) prochlorperazine maleate (Verified Adverse Reaction, Intermediate, GI upset, 02/26/14) ROS Review of System GEN: no Fevers (per pt, +ve heree) + Chills EYES: no new Visual Complaints ENT: no EN Drainage no Hearing deficiets CVS: no Orthopnea no CP RESP: no SOB no RASMUSSEN GI: + Nausea no Vomiting : no Dysuria occ Urgency HEME: no easy bruising no Palp Ly Nodes NEURO no Focal Weakness no Sz + WELCH PSYCH: no Suicidal Ideation no Depression SKIN: no Rashes ENDO: no Polyuria or Polydipsia no Hot/Cold Intolerance MU SK: no Arthraigia no Myalgia Physical Exam Physical Exam General Appearance: Awake Alert Oriented x 3 In no Distress Eyes: VIsion Unchanged Conjunctiva Normal EN: No EN Drainage Mucous Memb. moist Neck: no JVD no JVP Supple no Thyromegaly CVS: S1 S2 ? soft Murmur No Gallop No Rub no Edema Resp: no Rales no Rhonchi no Acc. Muscle use GI: BAS +ve NO Bruit Non Tender Non Distended : no CVA tenderness; no Suprapubic Tenderness SKIN: no Rashes Breast Exam deferred Mu.Sk: Adequate ROM no Muscle Atrophy Heme: Unable to palpate Obvious LAD no palp Splenomegaly NEURO: Good Strength and Tone Cranial Nerves II - XII grossly intact Psych: not Depressed no Active hallucination Vital Signs Vital Signs Date Time Temp Pulse Resp B/P (MAP) Pulse Ox O2 Delivery O2 Flow Rate FiO2 12/07/16 07:30 100.6 106 17 125/69 (87) 95 Room Air 100.6 Assessment & Plan ^ed Creat - cannot r/o element of Obstructive UROPathy. Await URO eval. Current FLuid and E-lyte status does not necessitate emergent need for Dialysis. Will re-evaluate for Dialysis in am ? 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 UTI with Hematruia - org P; Abx per ID h/o Kidney stones - currently asymptomatic - await URO plans and eval Discussed Plan of Care and prognosis etc. at length with pt Labs Labs Laboratory Tests Test 12/06/16 19:15 12/06/16 19:30 12/07/16 07:25 Urine Collection Type Unknown Urine Color Yellow Urine Clarity Clear Urine pH 7.0 Urine Specific [place] 1.015 Urine Protein 30 mg/dL (NEG-TRACE) Urine Glucose (UA) Negative mg/dL (NEG) Urine Ketones (Stick) Negative mg/dL (NEG) Urine Blood Moderate (NEG) Urine Nitrite Negative (NEG) Urine Bilirubin Negative (NEG) Urine Urobilinogen Dipstick 0.2 mg/dL (0.2 mg/dL) Urine Leukocyte Esterase Large (NEG) Urine RBC 1-2 /HPF (0-2) Urine WBC Tntc /HPF (0-4) Urine Squamous Epithelial Cells Few /LPF Urine Bacteria Few /HPF (0-FEW) Urine Mucus Slight /LPF White Blood Count 12.0 x10^3/uL (4.0-11.0) 11.5 x10^3/uL (4.0-11.0) Red Blood Count 5.28 x10^6/uL (3.50-5.40) 4.69 x10^6/uL (3.50-5.40) Hemoglobin 16.5 g/dL (12.0-15.5) 14.9 g/dL (12.0-15.5) Hematocrit 50.2 % (36.0-47.0) 45.3 % (36.0-47.0) Mean Corpuscular Volume 95 fL (79-100) 97 fL (79-100) Mean Corpuscular Hemoglobin 31 pg (25-35) 32 pg (25-35) Mean Corpuscular Hemoglobin Concent 33 g/dL (31-37) 33 g/dL (31-37) Red Cell Distribution Width 16.2 % (11.5-14.5) 16.2 % (11.5-14.5) Platelet Count 282 x10^3/uL (140-400) 243 x10^3/uL (140-400) Neutrophils (%) (Auto) 65 % (31-73) 58 % (31-73) Lymphocytes (%) (Auto) 22 % (24-48) 24 % (24-48) Monocytes (%) (Auto) 12 % (0-9) 17 % (0-9) Eosinophils (%) (Auto) 1 % (0-3) 1 % (0-3) Basophils (%) (Auto) 1 % (0-3) 1 % (0-3) Neutrophils # (Auto) 7.7 x10^3uL (1.8-7.7) 6.6 x10^3uL (1.8-7.7) Lymphocytes # (Auto) 2.7 x10^3/uL (1.0-4.8) 2.7 x10^3/uL (1.0-4.8) Monocytes # (Auto) 1.4 x10^3/uL (0.0-1.1) 2.0 x10^3/uL (0.0-1.1) Eosinophils # (Auto) 0.1 x10^3/uL (0.0-0.7) 0.1 x10^3/uL (0.0-0.7) Basophils # (Auto) 0.1 x10^3/uL (0.0-0.2) 0.1 x10^3/uL (0.0-0.2) Sodium Level 140 mmol/L (136-145) 141 mmol/L (136-145) Potassium Level 3.8 mmol/L (3.5-5.1) 4.4 mmol/L (3.5-5.1) Chloride Level 102 mmol/L (98-107) 108 mmol/L (98-107) Carbon Dioxide Level 25 mmol/L (21-32) 25 mmol/L (21-32) Anion Gap 13 (6-14) 8 (6-14) Blood Urea Nitrogen 14 mg/dL (7-20) 16 mg/dL (7-20) Creatinine 1.6 mg/dL (0.6-1.0) 1.6 mg/dL (0.6-1.0) Estimated GFR (Cockcroft-Gault) 32.7 32.7 BUN/Creatinine Ratio 9 (6-20) Glucose Level 123 mg/dL (70-99) 107 mg/dL (70-99) Calcium Level 10.4 mg/dL (8.5-10.1) 9.6 mg/dL (8.5-10.1) Total Bilirubin 1.1 mg/dL (0.2-1.0) Aspartate Amino Transf (AST/SGOT) 47 U/L (15-37) Alanine Aminotransferase (ALT/SGPT) 39 U/L (14-59) Alkaline Phosphatase 162 U/L (46-116) Troponin I Quantitative < 0.017 ng/mL (0.000-0.055) Total Protein 8.6 g/dL (6.4-8.2) Albumin 3.6 g/dL (3.4-5.0) Albumin/Globulin Ratio 0.7 (1.0-1.7) Lipase 195 U/L (73-393) Segmented Neutrophils % 56 % (35-66) Band Neutrophils % 5 % (0-9) Lymphocytes % 22 % (24-48) Monocytes % 12 % (0-10) Eosinophils % 4 % (0-5) Basophils % 1 % (0-3) Platelet Estimate Adequate (ADEQUATE) Anisocytosis Slight Laboratory Tests Test 12/06/16 19:15 12/06/16 19:30 12/07/16 07:25 Urine Collection Type Unknown Urine Color Yellow Urine Clarity Clear Urine pH 7.0 Urine Specific [place] 1.015 Urine Protein 30 mg/dL (NEG-TRACE) Urine Glucose (UA) Negative mg/dL (NEG) Urine Ketones (Stick) Negative mg/dL (NEG) Urine Blood Moderate (NEG) Urine Nitrite Negative (NEG) Urine Bilirubin Negative (NEG) Urine Urobilinogen Dipstick 0.2 mg/dL (0.2 mg/dL) Urine Leukocyte Esterase Large (NEG) Urine RBC 1-2 /HPF (0-2) Urine WBC Tntc /HPF (0-4) Urine Squamous Epithelial Cells Few /LPF Urine Bacteria Few /HPF (0-FEW) Urine Mucus Slight /LPF White Blood Count 12.0 x10^3/uL (4.0-11.0) 11.5 x10^3/uL (4.0-11.0) Red Blood Count 5.28 x10^6/uL (3.50-5.40) 4.69 x10^6/uL (3.50-5.40) Hemoglobin 16.5 g/dL (12.0-15.5) 14.9 g/dL (12.0-15.5) Hematocrit 50.2 % (36.0-47.0) 45.3 % (36.0-47.0) Mean Corpuscular Volume 95 fL (79-100) 97 fL (79-100) Mean Corpuscular Hemoglobin 31 pg (25-35) 32 pg (25-35) Mean Corpuscular Hemoglobin Concent 33 g/dL (31-37) 33 g/dL (31-37) Red Cell Distribution Width 16.2 % (11.5-14.5) 16.2 % (11.5-14.5) Platelet Count 282 x10^3/uL (140-400) 243 x10^3/uL (140-400) Neutrophils (%) (Auto) 65 % (31-73) 58 % (31-73) Lymphocytes (%) (Auto) 22 % (24-48) 24 % (24-48) Monocytes (%) (Auto) 12 % (0-9) 17 % (0-9) Eosinophils (%) (Auto) 1 % (0-3) 1 % (0-3) Basophils (%) (Auto) 1 % (0-3) 1 % (0-3) Neutrophils # (Auto) 7.7 x10^3uL (1.8-7.7) 6.6 x10^3uL (1.8-7.7) Lymphocytes # (Auto) 2.7 x10^3/uL (1.0-4.8) 2.7 x10^3/uL (1.0-4.8) Monocytes # (Auto) 1.4 x10^3/uL (0.0-1.1) 2.0 x10^3/uL (0.0-1.1) Eosinophils # (Auto) 0.1 x10^3/uL (0.0-0.7) 0.1 x10^3/uL (0.0-0.7) Basophils # (Auto) 0.1 x10^3/uL (0.0-0.2) 0.1 x10^3/uL (0.0-0.2) Sodium Level 140 mmol/L (136-145) 141 mmol/L (136-145) Potassium Level 3.8 mmol/L (3.5-5.1) 4.4 mmol/L (3.5-5.1) Chloride Level 102 mmol/L (98-107) 108 mmol/L (98-107) Carbon Dioxide Level 25 mmol/L (21-32) 25 mmol/L (21-32) Anion Gap 13 (6-14) 8 (6-14) Blood Urea Nitrogen 14 mg/dL (7-20) 16 mg/dL (7-20) Creatinine 1.6 mg/dL (0.6-1.0) 1.6 mg/dL (0.6-1.0) Estimated GFR (Cockcroft-Gault) 32.7 32.7 BUN/Creatinine Ratio 9 (6-20) Glucose Level 123 mg/dL (70-99) 107 mg/dL (70-99) Calcium Level 10.4 mg/dL (8.5-10.1) 9.6 mg/dL (8.5-10.1) Total Bilirubin 1.1 mg/dL (0.2-1.0) Aspartate Amino Transf (AST/SGOT) 47 U/L (15-37) Alanine Aminotransferase (ALT/SGPT) 39 U/L (14-59) Alkaline Phosphatase 162 U/L (46-116) Troponin I Quantitative < 0.017 ng/mL (0.000-0.055) Total Protein 8.6 g/dL (6.4-8.2) Albumin 3.6 g/dL (3.4-5.0) Albumin/Globulin Ratio 0.7 (1.0-1.7) Lipase 195 U/L (73-393) Segmented Neutrophils % 56 % (35-66) Band Neutrophils % 5 % (0-9) Lymphocytes % 22 % (24-48) Monocytes % 12 % (0-10) Eosinophils % 4 % (0-5) Basophils % 1 % (0-3) Platelet Estimate Adequate (ADEQUATE) Anisocytosis Slight Images Images 1. There is severe right hydronephrosis and moderate right hydroureter, 4 calculi in the mid to distal right ureter. There are right renal calculi. 2. There is left upper lobe lung infiltrate. 3. Similar to 2014 exam, there is fairly diffuse hazy density of the central and left mesenteric fat with interspersed nonspecific nodes including enlarged node on the left. Etiology is uncertain. SHAILESH ALANIS MD December 07, 2016 10:33
[2016-12-07 11:30] VITALS: BP 111/60
--- NOTE | 2016-12-07 11:49 | CONS ---
DATE OF CONSULTATION: 12/07/2016 The patient is in room 512. REQUESTING PHYSICIAN: Dr. Arthur. REASON FOR CONSULTATION: Red man syndrome and antibiotic recommendations. HISTORY OF PRESENT ILLNESS: The patient is a 61-year-old female with a history of leukemia, underwent a bone marrow transplant and is off of bone marrow suppressive medications. She has had problems with urinary incontinence and kidney stones in the past and has recently been taking Macrobid. She presented to the Emergency Room with lower abdominal pain, which was having some cramping. She has urinary incontinence. She felt like she has had some chills and sweats. No gross headache, mild nausea. She denies any urgency or dysuria and necessarily no change in her urine color. No cramps. No diarrhea. No falls or trauma; however, she has been dealing with she calls dry eyes for 3 months, has been using drops, but unable to say what drops they are and she said the drops helped somewhat, but currently she is having difficulty opening her eyes. She did have a low-grade fever of 99.3. White blood cell count was 12 on arrival and she underwent a CT scan of the abdomen and pelvis which revealed severe right-sided hydronephrosis, moderate right hydroureter and a 4 mm calculus in the [id number] right ureter. She had a left upper lobe lung infiltrate. She was placed on vancomycin and Zosyn, and admitted to the hospital last evening; however, during her vancomycin infusion, she states she had been very itchy her head and had some chills and hence this had been discontinued. Currently, she is lying more comfortably in bed. PAST MEDICAL HISTORY: Positive for previous ESBL, E. coli urinary tract infection, history of CLL with the bone marrow transplant, history of renal stones with obstruction and stenting with recurrent UTIs, hyperlipidemia, pneumonia, history of MRSA in her urine. PAST SURGICAL HISTORY: Positive for cholecystectomy, hernia repair, IVC filter placement, angioplasty and stenting. REVIEW OF SYSTEMS: Otherwise negative except for as mentioned above. ALLERGIES: LISTED IV CONTRAST AND PROCHLORPERAZINE. SOCIAL HISTORY: No tobacco, no alcohol. FAMILY HISTORY: Positive for lung cancer in her mom and brother had some type of cancer as well. CURRENT MEDICATIONS: Included, again she did receive vancomycin. She received Zosyn, Benadryl and Zofran. Other meds are available and reviewed in the chart. PHYSICAL EXAMINATION: VITAL SIGNS: T-max has been 99.3, currently 98.8; pulse 91, respirations 18, blood pressure 129/76, satting 95% on room air. CONSTITUTIONAL: She is cooperative. She is in no acute distress, but she is keeping her eyes closed. HEENT: Her pupils were equal and reactive. She has bilateral mild scleral injection. Oral cavity and pharynx has some questionable dentition, but otherwise clear. NECK: Supple with good range of motion. LUNGS: Clear to auscultation bilaterally. HEART: S1, S2. ABDOMEN: Soft and mildly tender. No guarding. EXTREMITIES: No clubbing, cyanosis or gross edema. SKIN: Warm to touch without generalized rash. NEUROLOGIC: She is nonfocal, moves all extremities and was pleasant. PSYCHIATRIC: Affect is appropriate. LABORATORY VALUES: White count 11.5, hemoglobin 14.9, platelets 243 with 58 segs, 24 lymphs. Creatinine of 1.6, glucose 107. Urinalysis concerning for urinary tract infection. CT scan reviewed in history of present illness. IMPRESSION: 1. Fever. 2. Hydronephrosis with hydroureter on the right side. 3. Urinary tract infection present on admission. 4. Vancomycin reaction, was Red Man's. 5. Leukocytosis. 6. Conjunctivitis. 7. Left lung infiltrate. 8. History of methicillin-resistant Staphylococcus aureus and ESBL. 9. History of bone marrow transplant, off immunosuppressive. RECOMMENDATIONS: We will change to meropenem. We will add Cipro eyedrops. We will follow up labs and cultures. Vancomycin should be okay if needed only, needs to run in a slower rate. This was discussed with Dr. Crawford. Thank you for allowing me to participate in the patient's care. If you have any questions, please do not hesitate to contact me. YUMIKO CAMPOS MD DR: JUAN/kranthi JOB#: [id number] / [id number]
[2016-12-07] MEDS: APIXABAN 5 MG TABLET. PO SCH ×2 (12:10→20:30)
[2016-12-07] MEDS: IV NORMAL SALINE 1000ML BAG 1,000 ML IV SCH ×2 (12:11→23:10)
[2016-12-07] MEDS: POLYVINYL ALCOHOL 1.4% OPHTH SOLUTION 15ML BOTTLE. OU PRN (12:11)
--- NOTE | 2016-12-07 13:44 | CONS ---
DATE OF CONSULTATION: PRIMARY PHYSICIAN: Dr. Garcia. REASON FOR CONSULTATION: Renal insufficiency. HISTORY OF PRESENT ILLNESS: The patient is a 61-year-old female with a past history as mentioned below. She is known to have had stones in the right kidney in the past. She has been followed by a urologist. She has been told that her right kidney is probably nonfunctional. She has a creatinine of 1.6 and we were asked to see her. She was supposed to see us as an outpatient ____ in the future. She presented to the ER with suprapubic abdominal pain, which is not elicitable on my exam currently. She had some cramping. Initially, she is noted to have some amount of constipation. She is on Macrobid for antibiotic therapy for UTI. She also had chills and nausea. ____ pretty severe headache for which she presented to the ER for further evaluation. PAST MEDICAL HISTORY: Significant for left carotid endarterectomy, coronary artery disease status post coronary artery stenting, chronic anticoagulation, hypercholesterolemia, hypertension, DVT with IVC filter stent, pneumonia in the past, gallbladder removal, ventral hernia repair, off and on constipation, kidney stones, now possible CKD, cystoscopy with stents, nephrostomy placement, urinary incontinence, history of CLL, status post radiation and chemotherapy, she is also status post bone marrow transplant. FAMILY HISTORY: Positive for lung cancer and 1 paternal grandmother with ESRD dialysis. Family history is also positive for diabetes. SHAILESH ALANIS MD DR: MARISOL/kranthi JOB#: [id number] / [id number]
[2016-12-07] MEDS: MEROPENEM 500 MG in IV NORMAL SALINE 50ML 50 ML IV SCH ×2 (14:03→16:55)
[2016-12-07] MEDS: ACETAMINOPHEN 325 MG TABLET. PO PRN ×2 (14:04→20:31)
[2016-12-07] MEDS: CIPROFLOXACIN 0.3% OPHTH SOLUTION 5ML BOTTLE. OU SCH ×4 (14:04→20:30)
[2016-12-07] MEDS: HYDROcodone/APAP 5/325MG 1 TAB TABLET PO PRN ×2 (14:04→20:31)
[2016-12-07 15:00] VITALS: BP 98/53
[2016-12-07 19:00] VITALS: BP 114/65
[2016-12-07] MEDS ORDERED: VANCOMYCIN 1.5 GM in IV NORMAL SALINE 500ML BAG 500 ML IV SCH (22:00)
[2016-12-07 22:26] VITALS: BP 117/69
[2016-12-08 03:00] VITALS: BP 109/65
[2016-12-08 04:34] LABS: BASO # 0.1 x10^3/uL (0.0-0.2); BASO % 1 % (0-3); EOS % 2 % (0-3); HEMATOCRIT 47.6 % (36.0-47.0); HEMOGLOBIN 15.4 g/dL (12.0-15.5); LYMPH # 3.1 x10^3/uL (1.0-4.8); LYMPH % 25 % (24-48); MEAN CORPUSCULAR HEMOGLOBIN 31 pg (25-35); MEAN CORPUSCULAR HGB CONC 32 g/dL (31-37); MEAN CORPUSCULAR VOLUME 97 fL (79-100); MONO % 18 % (0-9); NEUT % 55 % (31-73); PLATELET COUNT 245 x10^3/uL (140-400); RED CELL DISTRIBUTION WIDTH 16.4 % (11.5-14.5); WHITE BLOOD COUNT 12.5 x10^3/uL (4.0-11.0)
[2016-12-08 04:55] LABS: CALCIUM 9.6 mg/dL (8.5-10.1); CREATININE 1.8 mg/dL (0.6-1.0); GFR 28.5; POTASSIUM 4.3 mmol/L (3.5-5.1)
[2016-12-08] MEDS: MEROPENEM 500 MG in IV NORMAL SALINE 50ML 50 ML IV SCH ×6 (06:25→23:13)
[2016-12-08] MEDS: HYDROcodone/APAP 5/325MG 1 TAB TABLET PO PRN (06:30)
[2016-12-08 07:54] VITALS: BP 113/64
[2016-12-08] MEDS: APIXABAN 5 MG TABLET. PO SCH (09:22)
[2016-12-08] MEDS: CIPROFLOXACIN 0.3% OPHTH SOLUTION 5ML BOTTLE. OU SCH ×4 (09:22→20:49)
[2016-12-08] MEDS: ONDANSETRON PF 4 MG/2 ML VIAL. IV PRN ×2 (09:23→17:27)
--- NOTE | 2016-12-08 10:28 | PDOC ---
Infectious Disease Note Subjective Subjective Better overall. Eyes better but still fever ROS ROS GEN:better HEENT: Denies blurred vision, sore throat CV: Denies chest pain RESP: Denies shortness of air, cough GI: Denies n/v/d NEURO: Denies confusion, dizziness MSK: Denies weakness, joint pain/swelling Vital Sign Vital Signs Vital Signs Date Time Temp Pulse Resp B/P (MAP) Pulse Ox O2 Delivery O2 Flow Rate FiO2 12/08/16 08:25 86 Room Air 12/08/16 07:54 100.2 104 18 113/64 (80) 100.2 Physical Exam PHYSICAL EXAM GENERAL: NAD, Alert, coop HEENT: PERRL, improved erythema OC/OP - clear NECK: Supple, no JVD, no LN LUNGS: Clear HEART: S1S2, no gallop, no murmur ABD: Soft, NT, no organomegaly, no rebound,obese EXT: No edema, no cyanosis [employer]: Alert, oriented x 3, no focal neurologic deficit SKIN: No rash IV: ok Labs Lab Laboratory Tests Test 12/07/16 19:00 12/08/16 03:55 Lactic Acid Level 1.3 mmol/L (0.4-2.0) White Blood Count 12.5 x10^3/uL (4.0-11.0) Red Blood Count 4.90 x10^6/uL (3.50-5.40) Hemoglobin 15.4 g/dL (12.0-15.5) Hematocrit 47.6 % (36.0-47.0) Mean Corpuscular Volume 97 fL (79-100) Mean Corpuscular Hemoglobin 31 pg (25-35) Mean Corpuscular Hemoglobin Concent 32 g/dL (31-37) Red Cell Distribution Width 16.4 % (11.5-14.5) Platelet Count 245 x10^3/uL (140-400) Neutrophils (%) (Auto) 55 % (31-73) Lymphocytes (%) (Auto) 25 % (24-48) Monocytes (%) (Auto) 18 % (0-9) Eosinophils (%) (Auto) 2 % (0-3) Basophils (%) (Auto) 1 % (0-3) Neutrophils # (Auto) 6.9 x10^3uL (1.8-7.7) Lymphocytes # (Auto) 3.1 x10^3/uL (1.0-4.8) Monocytes # (Auto) 2.2 x10^3/uL (0.0-1.1) Eosinophils # (Auto) 0.2 x10^3/uL (0.0-0.7) Basophils # (Auto) 0.1 x10^3/uL (0.0-0.2) Sodium Level 140 mmol/L (136-145) Potassium Level 4.3 mmol/L (3.5-5.1) Chloride Level 108 mmol/L (98-107) Carbon Dioxide Level 26 mmol/L (21-32) Anion Gap 6 (6-14) Blood Urea Nitrogen 17 mg/dL (7-20) Creatinine 1.8 mg/dL (0.6-1.0) Estimated GFR (Cockcroft-Gault) 28.5 Glucose Level 97 mg/dL (70-99) Calcium Level 9.6 mg/dL (8.5-10.1) Micro 1. There is severe right hydronephrosis and moderate right hydroureter, 4 calculi in the mid to distal right ureter. There are right renal calculi. 2. There is left upper lobe lung infiltrate. 3. Similar to 2014 exam, there is fairly diffuse hazy density of the central and left mesenteric fat with interspersed nonspecific nodes including enlarged node on the left. Etiology is uncertain. Electronically signed by: Fabricio Vasquez MD (12/06/2016 7:59 PM) Objective Assessment Fever Hydronephrosis/ureter on right UTI - POA - GN - d/w micro but no ID or sen until 12/09 Vanc reaction - redmans Leukocytosis Conjunctivitis - better Left infiltrate H/o MRSA and ESBL H/o BMT off immunosuppresives Plan Plan of Care Cont Meropenem - clinically looks and feels better Consult Dr Pathak Cont Cipro eye drops F/u labs and cults Vanc should be ok if needed only run at a slower rate D/w YUMIKO Kelsey MD December 08, 2016 10:28
--- NOTE | 2016-12-08 11:00 | PDOC ---
SUBJECTIVE ROS TARUUS/ CKD III c/o WELCH and cupset stomach CVS: no Orthopnea, no CP RESP: no SOB, no RASMUSSEN GI: + Nausea, + Vomiting : NO Dysuria, NO Urgency OBJECTIVE Vital Signs Vital Signs Date Time Temp Pulse Resp B/P (MAP) Pulse Ox O2 Delivery O2 Flow Rate FiO2 12/08/16 08:25 86 Room Air 12/08/16 07:54 100.2 104 18 113/64 (80) 100.2 I & 0 Intake and Output 12/08/16 07:00 Intake Total 3069 ml Output Total 500 ml Balance 2569 ml Intake Oral 760 ml IV Total 2309 ml Output Urine Total 500 ml # Voids 5 PHYSICAL EXAM Physical Exam General Appearance: Awake Alert Oriented x 3 In no Distress Eyes: VIsion Unchanged Conjunctiva Normal EN: No EN Drainage Mucous Memb. moist Neck: no JVD no JVP Supple no Thyromegaly CVS: S1 S2 ? soft Murmur No Gallop No Rub no Edema Resp: no Rales no Rhonchi no Acc. Muscle use GI: BS +ve NO Bruit Non Tender Non Distended : no CVA tenderness; no Suprapubic Tenderness Assessment & Plan ^ed Creat - cannot r/o element of Obstructive UROPathy. Await URO eval. Current FLuid and E-lyte status does not necessitate emergent need for Dialysis. Will re-evaluate for Dialysis in am ? CKD III - Pt claims that she has been told that her Rt Kidney is non- functional - this may be her new baseline in that setting. UTI with Hematuria - org P; Abx per ID h/o Kidney stones - currently asymptomatic - await URO plans and eval WELCH, NV and Fevers - D/w Dr Crawford - ? ID Consult ? Paraproteinemia - suspect dueto febrile illness. ^ed Bhavin resolve don its own. will check PEPs for completion sake Discussed Plan of Care and prognosis etc. at length with pt COMMENT/RELEVANT DATA Meds Current Medications Medications (Trade) Dose Ordered Sig/Maile Start Time Stop Time Status Last Admin Dose Admin Acetaminophen (Tylenol) 650 mg PRN Q6HRS PRN 12/07/16 12:30 12/07/16 20:31 650 MG Acetaminophen/ Hydrocodone Bitart (Lortab 5/325) 1 tab PRN Q4HRS PRN 12/07/16 08:45 12/08/16 06:30 1 TAB Apixaban (Eliquis) 5 mg BID 12/07/16 09:00 12/08/16 09:22 5 MG Artificial Tears (Artificial Tears) 1 drop PRN Q15MIN PRN 12/07/16 08:30 12/07/16 12:11 1 DROP Ciprofloxacin (Ciloxan Ophth) 1 drop QID 12/07/16 09:00 12/08/16 09:22 1 DROP Diphenhydramine HCl (Benadryl) 25 mg 1X ONCE 12/07/16 03:00 12/07/16 03:01 DC 12/07/16 02:42 25 MG Info (Anti-Coagulation Monitoring By Pharmacy) 1 each PRN DAILY PRN 12/07/16 08:45 Meropenem 500 mg/ Sodium Chloride 50 ml @ 100 mls/hr Q6HRS 12/07/16 12:00 12/08/16 06:25 100 MLS/HR Morphine Sulfate 2 mg PRN Q2HR PRN 12/06/16 20:15 12/07/16 20:14 DC Ondansetron HCl (Zofran) 4 mg PRN Q8HRS PRN 12/08/16 08:45 12/08/16 09:23 4 MG Piperacillin Sod/ Tazobactam Sod (Zosyn Per Pharmacy) 1 each PRN DAILY PRN 12/06/16 21:15 12/07/16 08:28 DC Piperacillin Sod/ Tazobactam Sod 2.25 gm/Sodium Chloride 50 ml @ 100 mls/hr Q6HRS 12/07/16 06:00 12/07/16 08:28 DC 12/07/16 05:51 100 MLS/HR Piperacillin Sod/ Tazobactam Sod 3.375 gm/Sodium Chloride 50 ml @ 100 mls/hr 1X ONCE 12/06/16 21:30 12/06/16 21:59 DC 12/06/16 21:38 100 MLS/HR Sodium Chloride 1,000 ml @ 125 mls/hr Q8H 12/06/16 20:13 12/07/16 20:12 DC 12/07/16 23:10 125 MLS/HR Vancomycin HCl 1 each 1X ONCE 12/08/16 21:30 12/08/16 21:30 DC Vancomycin HCl (Vanco Per Pharmacy) 1 each PRN DAILY PRN 12/06/16 21:15 12/07/16 02:28 DC 12/07/16 02:17 1 EACH Vancomycin HCl 1.5 gm/Sodium Chloride 500 ml @ 250 mls/hr Q24H 12/07/16 22:00 12/07/16 22:00 DC Vancomycin HCl 2 gm/Sodium Chloride 500 ml @ 250 mls/hr 1X ONCE 12/06/16 22:00 12/07/16 02:23 DC 12/06/16 22:00 250 MLS/HR Lab Laboratory Tests Test 12/07/16 19:00 12/08/16 03:55 Lactic Acid Level 1.3 mmol/L (0.4-2.0) White Blood Count 12.5 x10^3/uL (4.0-11.0) Red Blood Count 4.90 x10^6/uL (3.50-5.40) Hemoglobin 15.4 g/dL (12.0-15.5) Hematocrit 47.6 % (36.0-47.0) Mean Corpuscular Volume 97 fL (79-100) Mean Corpuscular Hemoglobin 31 pg (25-35) Mean Corpuscular Hemoglobin Concent 32 g/dL (31-37) Red Cell Distribution Width 16.4 % (11.5-14.5) Platelet Count 245 x10^3/uL (140-400) Neutrophils (%) (Auto) 55 % (31-73) Lymphocytes (%) (Auto) 25 % (24-48) Monocytes (%) (Auto) 18 % (0-9) Eosinophils (%) (Auto) 2 % (0-3) Basophils (%) (Auto) 1 % (0-3) Neutrophils # (Auto) 6.9 x10^3uL (1.8-7.7) Lymphocytes # (Auto) 3.1 x10^3/uL (1.0-4.8) Monocytes # (Auto) 2.2 x10^3/uL (0.0-1.1) Eosinophils # (Auto) 0.2 x10^3/uL (0.0-0.7) Basophils # (Auto) 0.1 x10^3/uL (0.0-0.2) Sodium Level 140 mmol/L (136-145) Potassium Level 4.3 mmol/L (3.5-5.1) Chloride Level 108 mmol/L (98-107) Carbon Dioxide Level 26 mmol/L (21-32) Anion Gap 6 (6-14) Blood Urea Nitrogen 17 mg/dL (7-20) Creatinine 1.8 mg/dL (0.6-1.0) Estimated GFR (Cockcroft-Gault) 28.5 Glucose Level 97 mg/dL (70-99) Calcium Level 9.6 mg/dL (8.5-10.1) SHAILESH ALANIS MD December 08, 2016 11:00
[2016-12-08 11:44] VITALS: BP 123/71
--- NOTE | 2016-12-08 12:32 | PDOC ---
PROGRESS NOTES Subjective Subjective Pt. with hx. of chronically obstructed, non-functional right kidney Objective Objective Vital Signs Date Time Temp Pulse Resp B/P (MAP) Pulse Ox O2 Delivery O2 Flow Rate FiO2 12/08/16 11:44 97.9 89 18 123/71 (88) 88 Room Air 97.9 Intake and Output 12/08/16 07:00 Intake Total 3069 ml Output Total 500 ml Balance 2569 ml Intake Oral 760 ml IV Total 2309 ml Output Urine Total 500 ml # Voids 5 Physical Exam Physical Exam No abd or flank pain Plan Plan of Care Pt. with hx of UTI and chronically obstructed, non-functional right kidney. I discussed with pt. the options, alternatives, benefits, risks, and possible complications of cystocopy with right retrograde pyelogram and possible right ureteral stent placement. Pt. understands and wishes to proceed with operation. Will proceed accordingly. Problems Medical Problems: (1) Abdominal pain Status: Acute (2) Pneumonia Status: Acute (3) UTI (lower urinary tract infection) Status: Acute Comment Review of Relevant I have reviewed the following items keegan (where applicable) has been applied. Labs Laboratory Tests Test 12/06/16 19:15 12/06/16 19:30 12/07/16 07:25 12/07/16 19:00 Urine Collection Type Unknown Urine Color Yellow Urine Clarity Clear Urine pH 7.0 Urine Specific [place] 1.015 Urine Protein 30 mg/dL (NEG-TRACE) Urine Glucose (UA) Negative mg/dL (NEG) Urine Ketones (Stick) Negative mg/dL (NEG) Urine Blood Moderate (NEG) Urine Nitrite Negative (NEG) Urine Bilirubin Negative (NEG) Urine Urobilinogen Dipstick 0.2 mg/dL (0.2 mg/dL) Urine Leukocyte Esterase Large (NEG) Urine RBC 1-2 /HPF (0-2) Urine WBC Tntc /HPF (0-4) Urine Squamous Epithelial Cells Few /LPF Urine Bacteria Few /HPF (0-FEW) Urine Mucus Slight /LPF White Blood Count 12.0 x10^3/uL (4.0-11.0) 11.5 x10^3/uL (4.0-11.0) Red Blood Count 5.28 x10^6/uL (3.50-5.40) 4.69 x10^6/uL (3.50-5.40) Hemoglobin 16.5 g/dL (12.0-15.5) 14.9 g/dL (12.0-15.5) Hematocrit 50.2 % (36.0-47.0) 45.3 % (36.0-47.0) Mean Corpuscular Volume 95 fL (79-100) 97 fL (79-100) Mean Corpuscular Hemoglobin 31 pg (25-35) 32 pg (25-35) Mean Corpuscular Hemoglobin Concent 33 g/dL (31-37) 33 g/dL (31-37) Red Cell Distribution Width 16.2 % (11.5-14.5) 16.2 % (11.5-14.5) Platelet Count 282 x10^3/uL (140-400) 243 x10^3/uL (140-400) Neutrophils (%) (Auto) 65 % (31-73) 58 % (31-73) Lymphocytes (%) (Auto) 22 % (24-48) 24 % (24-48) Monocytes (%) (Auto) 12 % (0-9) 17 % (0-9) Eosinophils (%) (Auto) 1 % (0-3) 1 % (0-3) Basophils (%) (Auto) 1 % (0-3) 1 % (0-3) Neutrophils # (Auto) 7.7 x10^3uL (1.8-7.7) 6.6 x10^3uL (1.8-7.7) Lymphocytes # (Auto) 2.7 x10^3/uL (1.0-4.8) 2.7 x10^3/uL (1.0-4.8) Monocytes # (Auto) 1.4 x10^3/uL (0.0-1.1) 2.0 x10^3/uL (0.0-1.1) Eosinophils # (Auto) 0.1 x10^3/uL (0.0-0.7) 0.1 x10^3/uL (0.0-0.7) Basophils # (Auto) 0.1 x10^3/uL (0.0-0.2) 0.1 x10^3/uL (0.0-0.2) Sodium Level 140 mmol/L (136-145) 141 mmol/L (136-145) Potassium Level 3.8 mmol/L (3.5-5.1) 4.4 mmol/L (3.5-5.1) Chloride Level 102 mmol/L (98-107) 108 mmol/L (98-107) Carbon Dioxide Level 25 mmol/L (21-32) 25 mmol/L (21-32) Anion Gap 13 (6-14) 8 (6-14) Blood Urea Nitrogen 14 mg/dL (7-20) 16 mg/dL (7-20) Creatinine 1.6 mg/dL (0.6-1.0) 1.6 mg/dL (0.6-1.0) Estimated GFR (Cockcroft-Gault) 32.7 32.7 BUN/Creatinine Ratio 9 (6-20) Glucose Level 123 mg/dL (70-99) 107 mg/dL (70-99) Calcium Level 10.4 mg/dL (8.5-10.1) 9.6 mg/dL (8.5-10.1) Total Bilirubin 1.1 mg/dL (0.2-1.0) Aspartate Amino Transf (AST/SGOT) 47 U/L (15-37) Alanine Aminotransferase (ALT/SGPT) 39 U/L (14-59) Alkaline Phosphatase 162 U/L (46-116) Troponin I Quantitative < 0.017 ng/mL (0.000-0.055) Total Protein 8.6 g/dL (6.4-8.2) Albumin 3.6 g/dL (3.4-5.0) Albumin/Globulin Ratio 0.7 (1.0-1.7) Lipase 195 U/L (73-393) Segmented Neutrophils % 56 % (35-66) Band Neutrophils % 5 % (0-9) Lymphocytes % 22 % (24-48) Monocytes % 12 % (0-10) Eosinophils % 4 % (0-5) Basophils % 1 % (0-3) Platelet Estimate Adequate (ADEQUATE) Anisocytosis Slight Lactic Acid Level 1.3 mmol/L (0.4-2.0) Test 12/08/16 03:55 White Blood Count 12.5 x10^3/uL (4.0-11.0) Red Blood Count 4.90 x10^6/uL (3.50-5.40) Hemoglobin 15.4 g/dL (12.0-15.5) Hematocrit 47.6 % (36.0-47.0) Mean Corpuscular Volume 97 fL (79-100) Mean Corpuscular Hemoglobin 31 pg (25-35) Mean Corpuscular Hemoglobin Concent 32 g/dL (31-37) Red Cell Distribution Width 16.4 % (11.5-14.5) Platelet Count 245 x10^3/uL (140-400) Neutrophils (%) (Auto) 55 % (31-73) Lymphocytes (%) (Auto) 25 % (24-48) Monocytes (%) (Auto) 18 % (0-9) Eosinophils (%) (Auto) 2 % (0-3) Basophils (%) (Auto) 1 % (0-3) Neutrophils # (Auto) 6.9 x10^3uL (1.8-7.7) Lymphocytes # (Auto) 3.1 x10^3/uL (1.0-4.8) Monocytes # (Auto) 2.2 x10^3/uL (0.0-1.1) Eosinophils # (Auto) 0.2 x10^3/uL (0.0-0.7) Basophils # (Auto) 0.1 x10^3/uL (0.0-0.2) Sodium Level 140 mmol/L (136-145) Potassium Level 4.3 mmol/L (3.5-5.1) Chloride Level 108 mmol/L (98-107) Carbon Dioxide Level 26 mmol/L (21-32) Anion Gap 6 (6-14) Blood Urea Nitrogen 17 mg/dL (7-20) Creatinine 1.8 mg/dL (0.6-1.0) Estimated GFR (Cockcroft-Gault) 28.5 Glucose Level 97 mg/dL (70-99) Calcium Level 9.6 mg/dL (8.5-10.1) Laboratory Tests Test 12/07/16 19:00 12/08/16 03:55 Lactic Acid Level 1.3 mmol/L (0.4-2.0) White Blood Count 12.5 x10^3/uL (4.0-11.0) Red Blood Count 4.90 x10^6/uL (3.50-5.40) Hemoglobin 15.4 g/dL (12.0-15.5) Hematocrit 47.6 % (36.0-47.0) Mean Corpuscular Volume 97 fL (79-100) Mean Corpuscular Hemoglobin 31 pg (25-35) Mean Corpuscular Hemoglobin Concent 32 g/dL (31-37) Red Cell Distribution Width 16.4 % (11.5-14.5) Platelet Count 245 x10^3/uL (140-400) Neutrophils (%) (Auto) 55 % (31-73) Lymphocytes (%) (Auto) 25 % (24-48) Monocytes (%) (Auto) 18 % (0-9) Eosinophils (%) (Auto) 2 % (0-3) Basophils (%) (Auto) 1 % (0-3) Neutrophils # (Auto) 6.9 x10^3uL (1.8-7.7) Lymphocytes # (Auto) 3.1 x10^3/uL (1.0-4.8) Monocytes # (Auto) 2.2 x10^3/uL (0.0-1.1) Eosinophils # (Auto) 0.2 x10^3/uL (0.0-0.7) Basophils # (Auto) 0.1 x10^3/uL (0.0-0.2) Sodium Level 140 mmol/L (136-145) Potassium Level 4.3 mmol/L (3.5-5.1) Chloride Level 108 mmol/L (98-107) Carbon Dioxide Level 26 mmol/L (21-32) Anion Gap 6 (6-14) Blood Urea Nitrogen 17 mg/dL (7-20) Creatinine 1.8 mg/dL (0.6-1.0) Estimated GFR (Cockcroft-Gault) 28.5 Glucose Level 97 mg/dL (70-99) Calcium Level 9.6 mg/dL (8.5-10.1) Microbiology 12/06/16 Urine Culture - Preliminary, Resulted 12/06/16 Urine Culture Result 1 (TRENA) - Preliminary, Resulted Medications Current Medications Sodium Chloride 500 ml @ 500 mls/hr 1X ONCE IV Last administered on t 19:52; Start 12/06/16 at 19:45; Stop 12/06/16 at 20:44; Status DC Ondansetron HCl (Zofran) 4 mg 1X ONCE IV Last administered on 12/06/16 19:51 ; Start 12/06/16 at 19:45; Stop 12/06/16 at 19:46; Status DC Acetaminophen (Tylenol) 650 mg 1X ONCE PO Last administered on 12/06/16 19:51 ; Start 12/06/16 at 19:45; Stop 12/06/16 at 19:46; Status DC Ondansetron HCl (Zofran) 4 mg PRN Q8HRS PRN IV NAUSEA/VOMITING; Start 12/06/16 at 20:15; Stop 12/07/16 at 20:14; Status DC Morphine Sulfate 2 mg PRN Q2HR PRN IV PAIN; Start 12/06/16 at 20:15; Stop 12/07 at 20:14; Status DC Sodium Chloride 1,000 ml @ 125 mls/hr Q8H IV Last administered on 12/07/16 23 :10; Start 12/06/16 at 20:13; Stop 12/07/16 at 20:12; Status DC Vancomycin HCl (Vanco Per Pharmacy) 1 each PRN DAILY PRN MC SEE COMMENTS Last administered on 12/07/16 02:17; Start 12/06/16 at 21:15; Stop 12/07/16 at 02:28 ; Status DC Piperacillin Sod/ Tazobactam Sod (Zosyn Per Pharmacy) 1 each PRN DAILY PRN MC SEE COMMENTS; Start 12/06/16 at 21:15; Stop 12/07/16 at 08:28; Status DC Vancomycin HCl 2 gm/Sodium Chloride 500 ml @ 250 mls/hr 1X ONCE IV Last administered on 12/06/16 22:00; Start 12/06/16 at 22:00; Stop 12/07/16 at 02:23 ; Status DC Piperacillin Sod/ Tazobactam Sod 3.375 gm/Sodium Chloride 50 ml @ 100 mls/hr 1X ONCE IV Last administered on 12/06/16 21:38; Start 12/06/16 at 21:30; Stop 12/06/16 at 21:59; Status DC Piperacillin Sod/ Tazobactam Sod 2.25 gm/Sodium Chloride 50 ml @ 100 mls/hr Q6HRS IV Last administered on 12/07/16 05:51; Start 12/07/16 at 06:00; Stop at 08:28; Status DC Vancomycin HCl 1.5 gm/Sodium Chloride 500 ml @ 250 mls/hr Q24H IV ; Start 12/07 at 22:00; Stop 12/07/16 at 22:00; Status DC Vancomycin HCl 1 each 1X ONCE MC ; Start 12/08/16 at 21:30; Stop 12/08/16 at 21 :30; Status DC Diphenhydramine HCl (Benadryl) 25 mg 1X ONCE IVP Last administered on 02:42; Start 12/07/16 at 03:00; Stop 12/07/16 at 03:01; Status DC Artificial Tears (Artificial Tears) 1 drop PRN Q15MIN PRN OU DRY EYE Last administered on 12/07/16 12:11; Start 12/07/16 at 08:30 Meropenem 500 mg/ Sodium Chloride 50 ml @ 100 mls/hr Q6HRS IV Last administered on 12/08/16 06:25; Start 12/07/16 at 12:00 Ciprofloxacin (Ciloxan Ophth) 1 drop QID OU Last administered on 12/08/16 09: 22; Start 12/07/16 at 09:00 Apixaban (Eliquis) 5 mg BID PO Last administered on 12/08/16 09:22; Start at 09:00 Acetaminophen/ Hydrocodone Bitart (Lortab 5/325) 1 tab PRN Q4HRS PRN PO PAIN Last administered on 12/08/16 06:30; Start 12/07/16 at 08:45 Info (Anti-Coagulation Monitoring By Pharmacy) 1 each PRN DAILY PRN MC SEE COMMENTS; Start 12/07/16 at 08:45 Acetaminophen (Tylenol) 650 mg PRN Q6HRS PRN PO pain or fever Last administered on 12/07/16 20:31; Start 12/07/16 at 12:30 Ondansetron HCl (Zofran) 4 mg PRN Q8HRS PRN IV NAUSEA/VOMITING Last administered on 12/08/16 09:23; Start 12/08/16 at 08:45 Active Scripts Active Hydrocodone-Apap 5-325 (Hydrocodone Bit/Acetaminophen) 1 Each Tablet 1 Tab PO PRN Q4HRS PRN Eliquis (Apixaban) 5 Mg Tablet 5 Mg PO BID 30 Days Eliquis (Apixaban) 5 Mg Tablet 10 Mg PO BID 7 Days Vitals/I & O Vital Sign - Last 24 Hours 12/07/16 12/07/16 12/07/16 12/07/16 14:04 15:00 19:00 20:00 Temp 99.7 98.5 99.7 98.5 Pulse 106 91 Resp 16 16 16 B/P (MAP) 98/53 (68) 114/65 (81) Pulse Ox 92 84 91 O2 Delivery Room Air Room Air Room Air Room Air 12/07/16 12/07/16 12/07/16 12/08/16 20:31 21:31 22:26 03:00 Temp 98.6 99.5 98.6 99.5 Pulse 109 88 Resp 18 20 16 16 B/P (MAP) 117/69 (85) 109/65 (80) Pulse Ox 91 92 91 O2 Delivery Room Air Room Air Room Air 12/08/16 12/08/16 12/08/16 12/08/16 06:30 07:54 07:55 08:00 Temp 100.2 100.2 Pulse 104 Resp 20 18 B/P (MAP) 113/64 (80) Pulse Ox 91 85 86 O2 Delivery Room Air Room Air Room Air Room Air 12/08/16 12/08/16 08:25 11:44 Temp 97.9 97.9 Pulse 89 Resp 18 B/P (MAP) 123/71 (88) Pulse Ox 86 88 O2 Delivery Room Air Room Air Intake and Output 12/07/16 12/07/16 12/08/16 15:00 23:00 07:00 Intake Total 570 ml 2449 ml 50 ml Output Total 500 ml Balance 570 ml 2449 ml -450 ml MIGDALIA GIMENEZ MD December 08, 2016 12:32
[2016-12-08] MEDS: ACETAMINOPHEN 325 MG TABLET. PO PRN ×2 (12:55→23:20)
--- NOTE | 2016-12-08 14:25 | PDOC ---
PROGRESS NOTES Chief Complaint Chief Complaint UTI sepsis CKD 3 dehydration weakness, aq. obesity, BMI 35 History of Present Illness History of Present Illness Uro eval, obs right kidney w/ UTI plan Cysto Vitals Vitals Vital Signs Date Time Temp Pulse Resp B/P (MAP) Pulse Ox O2 Delivery O2 Flow Rate FiO2 12/08/16 11:44 97.9 89 18 123/71 (88) 88 Room Air 97.9 Physical Exam General: Alert, Oriented X3, Cooperative, No acute distress Heart: Regular rate, No murmurs Lungs: Crackles, Other Abdomen: Normal bowel sounds (tender lower, not radiating, no guarding), Soft Extremities: No clubbing, No cyanosis, No edema Skin: No breakdown, No significant lesion Labs LABS Laboratory Tests Test 12/07/16 19:00 12/08/16 03:55 Lactic Acid Level 1.3 mmol/L (0.4-2.0) White Blood Count 12.5 x10^3/uL (4.0-11.0) Red Blood Count 4.90 x10^6/uL (3.50-5.40) Hemoglobin 15.4 g/dL (12.0-15.5) Hematocrit 47.6 % (36.0-47.0) Mean Corpuscular Volume 97 fL (79-100) Mean Corpuscular Hemoglobin 31 pg (25-35) Mean Corpuscular Hemoglobin Concent 32 g/dL (31-37) Red Cell Distribution Width 16.4 % (11.5-14.5) Platelet Count 245 x10^3/uL (140-400) Neutrophils (%) (Auto) 55 % (31-73) Lymphocytes (%) (Auto) 25 % (24-48) Monocytes (%) (Auto) 18 % (0-9) Eosinophils (%) (Auto) 2 % (0-3) Basophils (%) (Auto) 1 % (0-3) Neutrophils # (Auto) 6.9 x10^3uL (1.8-7.7) Lymphocytes # (Auto) 3.1 x10^3/uL (1.0-4.8) Monocytes # (Auto) 2.2 x10^3/uL (0.0-1.1) Eosinophils # (Auto) 0.2 x10^3/uL (0.0-0.7) Basophils # (Auto) 0.1 x10^3/uL (0.0-0.2) Sodium Level 140 mmol/L (136-145) Potassium Level 4.3 mmol/L (3.5-5.1) Chloride Level 108 mmol/L (98-107) Carbon Dioxide Level 26 mmol/L (21-32) Anion Gap 6 (6-14) Blood Urea Nitrogen 17 mg/dL (7-20) Creatinine 1.8 mg/dL (0.6-1.0) Estimated GFR (Cockcroft-Gault) 28.5 Glucose Level 97 mg/dL (70-99) Calcium Level 9.6 mg/dL (8.5-10.1) Review of Systems Review of Systems weakenss nausea poor PO intake Assessment and Plan Assessmemt and Plan Problems Medical Problems: (1) Abdominal pain Status: Acute (2) Pneumonia Status: Acute (3) UTI (lower urinary tract infection) Status: Acute Problems: Comment Review of Relevant I have reviewed the following items keegan (where applicable) has been applied. Labs Laboratory Tests Test 12/06/16 19:15 12/06/16 19:30 12/07/16 07:25 12/07/16 19:00 Urine Collection Type Unknown Urine Color Yellow Urine Clarity Clear Urine pH 7.0 Urine Specific [place] 1.015 Urine Protein 30 mg/dL (NEG-TRACE) Urine Glucose (UA) Negative mg/dL (NEG) Urine Ketones (Stick) Negative mg/dL (NEG) Urine Blood Moderate (NEG) Urine Nitrite Negative (NEG) Urine Bilirubin Negative (NEG) Urine Urobilinogen Dipstick 0.2 mg/dL (0.2 mg/dL) Urine Leukocyte Esterase Large (NEG) Urine RBC 1-2 /HPF (0-2) Urine WBC Tntc /HPF (0-4) Urine Squamous Epithelial Cells Few /LPF Urine Bacteria Few /HPF (0-FEW) Urine Mucus Slight /LPF White Blood Count 12.0 x10^3/uL (4.0-11.0) 11.5 x10^3/uL (4.0-11.0) Red Blood Count 5.28 x10^6/uL (3.50-5.40) 4.69 x10^6/uL (3.50-5.40) Hemoglobin 16.5 g/dL (12.0-15.5) 14.9 g/dL (12.0-15.5) Hematocrit 50.2 % (36.0-47.0) 45.3 % (36.0-47.0) Mean Corpuscular Volume 95 fL (79-100) 97 fL (79-100) Mean Corpuscular Hemoglobin 31 pg (25-35) 32 pg (25-35) Mean Corpuscular Hemoglobin Concent 33 g/dL (31-37) 33 g/dL (31-37) Red Cell Distribution Width 16.2 % (11.5-14.5) 16.2 % (11.5-14.5) Platelet Count 282 x10^3/uL (140-400) 243 x10^3/uL (140-400) Neutrophils (%) (Auto) 65 % (31-73) 58 % (31-73) Lymphocytes (%) (Auto) 22 % (24-48) 24 % (24-48) Monocytes (%) (Auto) 12 % (0-9) 17 % (0-9) Eosinophils (%) (Auto) 1 % (0-3) 1 % (0-3) Basophils (%) (Auto) 1 % (0-3) 1 % (0-3) Neutrophils # (Auto) 7.7 x10^3uL (1.8-7.7) 6.6 x10^3uL (1.8-7.7) Lymphocytes # (Auto) 2.7 x10^3/uL (1.0-4.8) 2.7 x10^3/uL (1.0-4.8) Monocytes # (Auto) 1.4 x10^3/uL (0.0-1.1) 2.0 x10^3/uL (0.0-1.1) Eosinophils # (Auto) 0.1 x10^3/uL (0.0-0.7) 0.1 x10^3/uL (0.0-0.7) Basophils # (Auto) 0.1 x10^3/uL (0.0-0.2) 0.1 x10^3/uL (0.0-0.2) Sodium Level 140 mmol/L (136-145) 141 mmol/L (136-145) Potassium Level 3.8 mmol/L (3.5-5.1) 4.4 mmol/L (3.5-5.1) Chloride Level 102 mmol/L (98-107) 108 mmol/L (98-107) Carbon Dioxide Level 25 mmol/L (21-32) 25 mmol/L (21-32) Anion Gap 13 (6-14) 8 (6-14) Blood Urea Nitrogen 14 mg/dL (7-20) 16 mg/dL (7-20) Creatinine 1.6 mg/dL (0.6-1.0) 1.6 mg/dL (0.6-1.0) Estimated GFR (Cockcroft-Gault) 32.7 32.7 BUN/Creatinine Ratio 9 (6-20) Glucose Level 123 mg/dL (70-99) 107 mg/dL (70-99) Calcium Level 10.4 mg/dL (8.5-10.1) 9.6 mg/dL (8.5-10.1) Total Bilirubin 1.1 mg/dL (0.2-1.0) Aspartate Amino Transf (AST/SGOT) 47 U/L (15-37) Alanine Aminotransferase (ALT/SGPT) 39 U/L (14-59) Alkaline Phosphatase 162 U/L (46-116) Troponin I Quantitative < 0.017 ng/mL (0.000-0.055) Total Protein 8.6 g/dL (6.4-8.2) Albumin 3.6 g/dL (3.4-5.0) Albumin/Globulin Ratio 0.7 (1.0-1.7) Lipase 195 U/L (73-393) Segmented Neutrophils % 56 % (35-66) Band Neutrophils % 5 % (0-9) Lymphocytes % 22 % (24-48) Monocytes % 12 % (0-10) Eosinophils % 4 % (0-5) Basophils % 1 % (0-3) Platelet Estimate Adequate (ADEQUATE) Anisocytosis Slight Lactic Acid Level 1.3 mmol/L (0.4-2.0) Test 12/08/16 03:55 White Blood Count 12.5 x10^3/uL (4.0-11.0) Red Blood Count 4.90 x10^6/uL (3.50-5.40) Hemoglobin 15.4 g/dL (12.0-15.5) Hematocrit 47.6 % (36.0-47.0) Mean Corpuscular Volume 97 fL (79-100) Mean Corpuscular Hemoglobin 31 pg (25-35) Mean Corpuscular Hemoglobin Concent 32 g/dL (31-37) Red Cell Distribution Width 16.4 % (11.5-14.5) Platelet Count 245 x10^3/uL (140-400) Neutrophils (%) (Auto) 55 % (31-73) Lymphocytes (%) (Auto) 25 % (24-48) Monocytes (%) (Auto) 18 % (0-9) Eosinophils (%) (Auto) 2 % (0-3) Basophils (%) (Auto) 1 % (0-3) Neutrophils # (Auto) 6.9 x10^3uL (1.8-7.7) Lymphocytes # (Auto) 3.1 x10^3/uL (1.0-4.8) Monocytes # (Auto) 2.2 x10^3/uL (0.0-1.1) Eosinophils # (Auto) 0.2 x10^3/uL (0.0-0.7) Basophils # (Auto) 0.1 x10^3/uL (0.0-0.2) Sodium Level 140 mmol/L (136-145) Potassium Level 4.3 mmol/L (3.5-5.1) Chloride Level 108 mmol/L (98-107) Carbon Dioxide Level 26 mmol/L (21-32) Anion Gap 6 (6-14) Blood Urea Nitrogen 17 mg/dL (7-20) Creatinine 1.8 mg/dL (0.6-1.0) Estimated GFR (Cockcroft-Gault) 28.5 Glucose Level 97 mg/dL (70-99) Calcium Level 9.6 mg/dL (8.5-10.1) Laboratory Tests Test 12/07/16 19:00 12/08/16 03:55 Lactic Acid Level 1.3 mmol/L (0.4-2.0) White Blood Count 12.5 x10^3/uL (4.0-11.0) Red Blood Count 4.90 x10^6/uL (3.50-5.40) Hemoglobin 15.4 g/dL (12.0-15.5) Hematocrit 47.6 % (36.0-47.0) Mean Corpuscular Volume 97 fL (79-100) Mean Corpuscular Hemoglobin 31 pg (25-35) Mean Corpuscular Hemoglobin Concent 32 g/dL (31-37) Red Cell Distribution Width 16.4 % (11.5-14.5) Platelet Count 245 x10^3/uL (140-400) Neutrophils (%) (Auto) 55 % (31-73) Lymphocytes (%) (Auto) 25 % (24-48) Monocytes (%) (Auto) 18 % (0-9) Eosinophils (%) (Auto) 2 % (0-3) Basophils (%) (Auto) 1 % (0-3) Neutrophils # (Auto) 6.9 x10^3uL (1.8-7.7) Lymphocytes # (Auto) 3.1 x10^3/uL (1.0-4.8) Monocytes # (Auto) 2.2 x10^3/uL (0.0-1.1) Eosinophils # (Auto) 0.2 x10^3/uL (0.0-0.7) Basophils # (Auto) 0.1 x10^3/uL (0.0-0.2) Sodium Level 140 mmol/L (136-145) Potassium Level 4.3 mmol/L (3.5-5.1) Chloride Level 108 mmol/L (98-107) Carbon Dioxide Level 26 mmol/L (21-32) Anion Gap 6 (6-14) Blood Urea Nitrogen 17 mg/dL (7-20) Creatinine 1.8 mg/dL (0.6-1.0) Estimated GFR (Cockcroft-Gault) 28.5 Glucose Level 97 mg/dL (70-99) Calcium Level 9.6 mg/dL (8.5-10.1) Microbiology 12/06/16 Urine Culture - Preliminary, Resulted 12/06/16 Urine Culture Result 1 (TRENA) - Preliminary, Resulted Medications Current Medications Sodium Chloride 500 ml @ 500 mls/hr 1X ONCE IV Last administered on t 19:52; Start 12/06/16 at 19:45; Stop 12/06/16 at 20:44; Status DC Ondansetron HCl (Zofran) 4 mg 1X ONCE IV Last administered on 12/06/16 19:51 ; Start 12/06/16 at 19:45; Stop 12/06/16 at 19:46; Status DC Acetaminophen (Tylenol) 650 mg 1X ONCE PO Last administered on 12/06/16 19:51 ; Start 12/06/16 at 19:45; Stop 12/06/16 at 19:46; Status DC Ondansetron HCl (Zofran) 4 mg PRN Q8HRS PRN IV NAUSEA/VOMITING; Start 12/06/16 at 20:15; Stop 12/07/16 at 20:14; Status DC Morphine Sulfate 2 mg PRN Q2HR PRN IV PAIN; Start 12/06/16 at 20:15; Stop 12/07 at 20:14; Status DC Sodium Chloride 1,000 ml @ 125 mls/hr Q8H IV Last administered on 12/07/16 23 :10; Start 12/06/16 at 20:13; Stop 12/07/16 at 20:12; Status DC Vancomycin HCl (Vanco Per Pharmacy) 1 each PRN DAILY PRN MC SEE COMMENTS Last administered on 12/07/16 02:17; Start 12/06/16 at 21:15; Stop 12/07/16 at 02:28 ; Status DC Piperacillin Sod/ Tazobactam Sod (Zosyn Per Pharmacy) 1 each PRN DAILY PRN MC SEE COMMENTS; Start 12/06/16 at 21:15; Stop 12/07/16 at 08:28; Status DC Vancomycin HCl 2 gm/Sodium Chloride 500 ml @ 250 mls/hr 1X ONCE IV Last administered on 12/06/16 22:00; Start 12/06/16 at 22:00; Stop 12/07/16 at 02:23 ; Status DC Piperacillin Sod/ Tazobactam Sod 3.375 gm/Sodium Chloride 50 ml @ 100 mls/hr 1X ONCE IV Last administered on 12/06/16 21:38; Start 12/06/16 at 21:30; Stop 12/06/16 at 21:59; Status DC Piperacillin Sod/ Tazobactam Sod 2.25 gm/Sodium Chloride 50 ml @ 100 mls/hr Q6HRS IV Last administered on 12/07/16 05:51; Start 12/07/16 at 06:00; Stop at 08:28; Status DC Vancomycin HCl 1.5 gm/Sodium Chloride 500 ml @ 250 mls/hr Q24H IV ; Start 12/07 at 22:00; Stop 12/07/16 at 22:00; Status DC Vancomycin HCl 1 each 1X ONCE MC ; Start 12/08/16 at 21:30; Stop 12/08/16 at 21 :30; Status DC Diphenhydramine HCl (Benadryl) 25 mg 1X ONCE IVP Last administered on 02:42; Start 12/07/16 at 03:00; Stop 12/07/16 at 03:01; Status DC Artificial Tears (Artificial Tears) 1 drop PRN Q15MIN PRN OU DRY EYE Last administered on 12/07/16 12:11; Start 12/07/16 at 08:30 Meropenem 500 mg/ Sodium Chloride 50 ml @ 100 mls/hr Q6HRS IV Last administered on 12/08/16 12:29; Start 12/07/16 at 12:00 Ciprofloxacin (Ciloxan Ophth) 1 drop QID OU Last administered on 12/08/16 12: 55; Start 12/07/16 at 09:00 Apixaban (Eliquis) 5 mg BID PO Last administered on 12/08/16 09:22; Start at 09:00; Stop 12/08/16 at 12:28; Status DC Acetaminophen/ Hydrocodone Bitart (Lortab 5/325) 1 tab PRN Q4HRS PRN PO PAIN Last administered on 12/08/16 06:30; Start 12/07/16 at 08:45 Info (Anti-Coagulation Monitoring By Pharmacy) 1 each PRN DAILY PRN MC SEE COMMENTS; Start 12/07/16 at 08:45 Acetaminophen (Tylenol) 650 mg PRN Q6HRS PRN PO pain or fever Last administered on 12/08/16 12:55; Start 12/07/16 at 12:30 Ondansetron HCl (Zofran) 4 mg PRN Q8HRS PRN IV NAUSEA/VOMITING Last administered on 12/08/16 09:23; Start 12/08/16 at 08:45 Ondansetron HCl (Zofran) 4 mg PRN Q6HRS PRN IV NAUSEA/VOMITING; Start 12/09/16 at 07:00; Stop 12/10/16 at 06:59 Fentanyl Citrate (Fentanyl 2ml Vial) 25 mcg PRN Q5MIN PRN IV MILD PAIN; Start 12/09/16 at 07:00; Stop 12/10/16 at 06:59 Fentanyl Citrate (Fentanyl 2ml Vial) 50 mcg PRN Q5MIN PRN IV MODERATE PAIN; Start 12/09/16 at 07:00; Stop 12/10/16 at 06:59 Ringer's Solution 1,000 ml @ 30 mls/hr Q24H IV ; Start 12/09/16 at 07:00; Stop 12/09/16 at 18:59 Lidocaine HCl 2 ml PRN 1X PRN ID PRIOR TO IV START; Start 12/09/16 at 07:00; Stop 12/10/16 at 06:59 Active Scripts Active Hydrocodone-Apap 5-325 (Hydrocodone Bit/Acetaminophen) 1 Each Tablet 1 Tab PO PRN Q4HRS PRN Eliquis (Apixaban) 5 Mg Tablet 5 Mg PO BID 30 Days Eliquis (Apixaban) 5 Mg Tablet 10 Mg PO BID 7 Days Vitals/I & O Vital Sign - Last 24 Hours 12/07/16 12/07/16 12/07/16 12/07/16 15:00 19:00 20:00 20:31 Temp 99.7 98.5 99.7 98.5 Pulse 106 91 Resp 16 16 18 B/P (MAP) 98/53 (68) 114/65 (81) Pulse Ox 84 91 91 O2 Delivery Room Air Room Air Room Air Room Air 12/07/16 12/07/16 12/08/16 12/08/16 21:31 22:26 03:00 06:30 Temp 98.6 99.5 98.6 99.5 Pulse 109 88 Resp 20 16 16 20 B/P (MAP) 117/69 (85) 109/65 (80) Pulse Ox 92 91 91 O2 Delivery Room Air Room Air Room Air 12/08/16 12/08/16 12/08/16 12/08/16 07:54 07:55 08:00 08:25 Temp 100.2 100.2 Pulse 104 Resp 18 B/P (MAP) 113/64 (80) Pulse Ox 85 86 86 O2 Delivery Room Air Room Air Room Air Room Air 12/08/16 11:44 Temp 97.9 97.9 Pulse 89 Resp 18 B/P (MAP) 123/71 (88) Pulse Ox 88 O2 Delivery Room Air Intake and Output 12/07/16 12/07/16 12/08/16 15:00 23:00 07:00 Intake Total 570 ml 2449 ml 50 ml Output Total 500 ml Balance 570 ml 2449 ml -450 ml KASSANDRA BURNETT MD December 08, 2016 14:25
[2016-12-08 15:29] VITALS: BP 115/67
[2016-12-08 19:00] VITALS: BP 120/66
[2016-12-08 23:00] VITALS: BP 129/67
[2016-12-09 03:09] VITALS: BP 117/71
[2016-12-09 04:52] LABS: BASO % 0 % (0-3); EOS % 2 % (0-3); HEMATOCRIT 44.6 % (36.0-47.0); HEMOGLOBIN 14.5 g/dL (12.0-15.5); LYMPH # 1.6 x10^3/uL (1.0-4.8); LYMPH % 16 % (24-48); MEAN CORPUSCULAR HEMOGLOBIN 31 pg (25-35); MEAN CORPUSCULAR HGB CONC 33 g/dL (31-37); MEAN CORPUSCULAR VOLUME 96 fL (79-100); MONO % 15 % (0-9); NEUT % 68 % (31-73); PLATELET COUNT 253 x10^3/uL (140-400); RED BLOOD COUNT 4.62 x10^6/uL (3.50-5.40); RED CELL DISTRIBUTION WIDTH 16.2 % (11.5-14.5); WHITE BLOOD COUNT 10.2 x10^3/uL (4.0-11.0)
[2016-12-09 05:00] LABS: INR 1.2 (0.8-1.1); PROTHROMBIN TIME PATIENT 14.8 SEC (11.7-14.0)
[2016-12-09 05:05] LABS: CALCIUM 10.6 mg/dL (8.5-10.1); CREATININE 1.3 mg/dL (0.6-1.0); GFR 41.5; POTASSIUM 4.4 mmol/L (3.5-5.1)
[2016-12-09] MEDS: MEROPENEM 500 MG in IV NORMAL SALINE 50ML 50 ML IV SCH ×4 (05:10→23:34)
--- NOTE | 2016-12-09 05:27 | CONS ---
DATE OF CONSULTATION: 12/08/2016 LOCATION: The patient is in room 512. HISTORY OF PRESENT ILLNESS: The patient is a very pleasant 61-year-old white female with a history of chronically obstructed right kidney, which is nonfunctional, who was admitted with abdominal pain. The patient has ____ had problems with some recent urinary tract infections, white count on admission 12.0, white count currently is 12.5. The patient's creatinine is 1.8. The patient's urine on admission showed 1-2 red cells, too numerous to count white cells and a few bacteria, nitrite negative. The patient has been seen by Nephrology and ID. The patient had a CT abdomen and pelvis, which shows her to have the right hydroureteronephrosis with minimal parenchyma on the right kidney and right ureteral calculi, which is an old finding. The patient has been a patient in the past of ____ and Dr. Renee. The patient has been worked up by Urology with ____ and found to have essentially nonfunctional right kidney. PAST MEDICAL HISTORY: Significant for CLL, has been off immunosuppression for 9 years. The patient also with a history of DVT and pulmonary emboli, has a filter in place. She also had a hernia repair and hysterectomy in the past and stone procedures by Dr. Renee and ____. PHYSICAL EXAMINATION: GENERAL: The patient currently with some nausea and vomiting. ABDOMEN: Soft, nontender, no CVA tenderness. VITAL SIGNS: Temperature 97.9, blood pressure 123/71, pulse 89. PLAN: I talked with the patient concerning her findings and we discussed the options, alternatives, benefits, risks and possible complications of cystoscopy, right retrograde pyelogram and possible right ureteral stent placement and if unable to do this, then she may require right percutaneous nephrostomy tube placement by Interventional Radiology. The patient understands this and would like to proceed ahead with the operation. We will therefore hold her Eliquis from this point onward and then proceed with the operation tomorrow morning and proceed accordingly. I certainly appreciate being allowed to participate in this patient's care. MIGDALIA GIMENEZ MD DR: SHANDRA/kranthi JOB#: [id number] / [id number]
[2016-12-09] MEDS ORDERED: IV RINGERS,LACTATED 1000ML 1,000 ML IV SCH (07:00)
[2016-12-09] MEDS ORDERED: ONDANSETRON PF 4 MG/2 ML VIAL. IV PRN (07:00)
[2016-12-09] MEDS ORDERED: LIDOCAINE 1% 1 ML SYRINGE. ID PRN (07:00)
[2016-12-09] MEDS ORDERED: fentaNYL PF VIAL 100 MCG/2 ML VIAL IV PRN ×2 (07:00)
[2016-12-09] MEDS ORDERED: LIDOCAINE 2% JELLY 6ML IN APPLICATOR. ONE ×2 (07:13→07:14)
[2016-12-09] MEDS ORDERED: IOHEXOL 300 MG/ML 50 ML VIAL. ONE (07:14)
[2016-12-09] MEDS ORDERED: LIDOCAINE 2% PF Vial for OR 5 ML VIAL. ONE (07:21)
[2016-12-09] MEDS ORDERED: PROPOFOL 20 ML IV ONE (07:21)
[2016-12-09] MEDS ORDERED: fentaNYL PF VIAL 100 MCG/2 ML VIAL ONE (07:22)
[2016-12-09] MEDS: CIPROFLOXACIN 0.3% OPHTH SOLUTION 5ML BOTTLE. OU SCH ×4 (07:31→21:30)
[2016-12-09] MEDS ORDERED: DEXAMETHASONE SOD PHOS 20 MG/5 ML VIAL. ONE (08:03)
[2016-12-09] MEDS ORDERED: SEVOFLURANE 31 TO 60 MINUTES. IH ONE (08:03)
[2016-12-09] MEDS ORDERED: ONDANSETRON PF 4 MG/2 ML VIAL. ONE (08:23)
--- NOTE | 2016-12-09 09:05 | PDOC4 ---
Operative Note Operative Note UTI, right hydronephroureteronephrosis procedure-cystoscopy, right retrograde pyelogram surgeon-elis mosley-general Pt. tolerated procedure well Findings-severe right mid-ureteral strictures-unable to pass anything through strictured area Consider right PCN tube-IR consulted MIGDALIA GIMENEZ MD December 09, 2016 09:05
--- NOTE | 2016-12-09 10:12 | PDOC ---
Infectious Disease Note Subjective Subjective Better overall. Eyes better Just back from surgery ROS ROS GEN: Denies fevers, chills, sweats HEENT: Denies blurred vision, sore throat CV: Denies chest pain RESP: Denies shortness of air, cough GI: Denies n/v/d NEURO: Denies confusion, dizziness MSK: Denies weakness, joint pain/swelling Vital Sign Vital Signs Vital Signs Date Time Temp Pulse Resp B/P (MAP) Pulse Ox O2 Delivery O2 Flow Rate FiO2 12/09/16 09:18 98.1 74 20 117/74 94 Nasal Cannula 2 98.1 Physical Exam PHYSICAL EXAM GENERAL: NAD, Alert HEENT: PERRL,nml conj OC/OP -clear NECK: Supple, no JVD, no LN LUNGS: Clear HEART: S1S2, no gallop, no murmur ABD: Soft, NT, no organomegaly, no rebound, obese EXT: No edema, no cyanosis PROFILE SAW OPERATOR: Alert, oriented x 3, no focal neurologic deficit SKIN: No rash IV: ok Labs Lab Laboratory Tests Test 12/09/16 03:35 White Blood Count 10.2 x10^3/uL (4.0-11.0) Red Blood Count 4.62 x10^6/uL (3.50-5.40) Hemoglobin 14.5 g/dL (12.0-15.5) Hematocrit 44.6 % (36.0-47.0) Mean Corpuscular Volume 96 fL (79-100) Mean Corpuscular Hemoglobin 31 pg (25-35) Mean Corpuscular Hemoglobin Concent 33 g/dL (31-37) Red Cell Distribution Width 16.2 % (11.5-14.5) Platelet Count 253 x10^3/uL (140-400) Neutrophils (%) (Auto) 68 % (31-73) Lymphocytes (%) (Auto) 16 % (24-48) Monocytes (%) (Auto) 15 % (0-9) Eosinophils (%) (Auto) 2 % (0-3) Basophils (%) (Auto) 0 % (0-3) Neutrophils # (Auto) 6.9 x10^3uL (1.8-7.7) Lymphocytes # (Auto) 1.6 x10^3/uL (1.0-4.8) Monocytes # (Auto) 1.5 x10^3/uL (0.0-1.1) Eosinophils # (Auto) 0.2 x10^3/uL (0.0-0.7) Basophils # (Auto) 0.0 x10^3/uL (0.0-0.2) Prothrombin Time 14.8 SEC (11.7-14.0) Prothromb Time International Ratio 1.2 (0.8-1.1) Sodium Level 139 mmol/L (136-145) Potassium Level 4.4 mmol/L (3.5-5.1) Chloride Level 105 mmol/L (98-107) Carbon Dioxide Level 25 mmol/L (21-32) Anion Gap 9 (6-14) Blood Urea Nitrogen 16 mg/dL (7-20) Creatinine 1.3 mg/dL (0.6-1.0) Estimated GFR (Cockcroft-Gault) 41.5 Glucose Level 92 mg/dL (70-99) Calcium Level 10.6 mg/dL (8.5-10.1) Micro 1. There is severe right hydronephrosis and moderate right hydroureter, 4 calculi in the mid to distal right ureter. There are right renal calculi. 2. There is left upper lobe lung infiltrate. 3. Similar to 2014 exam, there is fairly diffuse hazy density of the central and left mesenteric fat with interspersed nonspecific nodes including enlarged node on the left. Etiology is uncertain. Electronically signed by: Fabricio Vasquez MD (12/06/2016 7:59 PM) Objective Assessment Fever - better Hydronephrosis/ureter on right. Needs perc or nephrectomy - d/w Dr. 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 Crawford. ? transfer to YUMIKO MCLEOD MD December 09, 2016 10:12
[2016-12-09 11:00] VITALS: BP 119/80
--- NOTE | 2016-12-09 11:23 | PDOC ---
SUBJECTIVE ROS TAURUS/ CKD III Doign OK overall. Pt was taken for Cysto and hence 24-hr Urine will need to be restarted CVS: no Orthopnea, no CP RESP: no SOB, no RASMUSSEN GI: min Nausea, no Vomiting : no Dysuria, no Urgency OBJECTIVE Vital Signs Vital Signs Date Time Temp Pulse Resp B/P (MAP) Pulse Ox O2 Delivery O2 Flow Rate FiO2 12/09/16 09:33 98.1 74 119/80 94 Nasal Cannula 2 98.1 12/09/16 09:18 20 I & 0 Intake and Output 12/09/16 06:59 Intake Total 300 ml Output Total 500 ml Balance -200 ml Intake Oral 100 ml IV Total 200 ml Output Urine Total 500 ml # Voids 6 PHYSICAL EXAM Physical Exam General Appearance: Awake Alert Oriented x 3 In no Distress Eyes: VIsion Unchanged Conjunctiva Normal EN: No EN Drainage Mucous Memb. moist Neck: no JVD no JVP Supple no Thyromegaly CVS: S1 S2 ? soft Murmur No Gallop No Rub no Edema Resp: no Rales no Rhonchi no Acc. Muscle use GI: BS +ve NO Bruit Non Tender Non Distended : no CVA tenderness; no Suprapubic Tenderness Assessment & Plan ^ed Creat - cannot r/o element of Obstructive UROPathy. Creat is much better this am. watch off of IVF ? CKD III - Pt claims that she has been told that her Rt Kidney is non- functional - ? new baseline in that setting. ? Plans for Rt Nephrectomy as the pt reports ? UTI with Hematuria - org not isolated; Abx per ID h/o Kidney stones - currently asymptomatic - Cysto showed Severe right mid- ureteral strictures-unable to pass anything through strictured area so right PCN tube is being considered -IR consulted ? Paraproteinemia - suspect dueto febrile illness. ^ed Bhavin resolve don its own. will check PEPs for completion sake once Urological issues have resolved since Recent cysto may worsen blood in Urine and affect PEP results Discussed Plan of Care and prognosis etc. at length with pt COMMENT/RELEVANT DATA Meds Current Medications Medications (Trade) Dose Ordered Sig/Maile Start Time Stop Time Status Last Admin Dose Admin Acetaminophen (Tylenol) 650 mg PRN Q6HRS PRN 12/07/16 12:30 12/08/16 23:20 650 MG Acetaminophen/ Hydrocodone Bitart (Lortab 5/325) 1 tab PRN Q4HRS PRN 12/07/16 08:45 12/08/16 06:30 1 TAB Apixaban (Eliquis) 5 mg BID 12/07/16 09:00 12/08/16 12:28 DC 12/08/16 09:22 5 MG Artificial Tears (Artificial Tears) 1 drop PRN Q15MIN PRN 12/07/16 08:30 12/07/16 12:11 1 DROP Ciprofloxacin (Ciloxan Ophth) 1 drop QID 12/07/16 09:00 12/08/16 20:49 1 DROP Dexamethasone Sodium Phosphate (Decadron) 20 mg STK-MED ONCE 12/09/16 08:03 12/09/16 08:04 DC Diphenhydramine HCl (Benadryl) 25 mg 1X ONCE 12/07/16 03:00 12/07/16 03:01 DC 12/07/16 02:42 25 MG Fentanyl Citrate (Fentanyl 2ml Vial) 100 mcg STK-MED ONCE 12/09/16 07:22 12/09/16 07:23 DC Info (Anti-Coagulation Monitoring By Pharmacy) 1 each PRN DAILY PRN 12/07/16 08:45 Iohexol (Omnipaque 300 Mg/ml) 50 ml STK-MED ONCE 12/09/16 07:14 12/09/16 07:15 DC 12/09/16 08:12 20 ML Lidocaine HCl (Glydo (Lidocaine) Jelly) 6 maurizio STK-MED ONCE 12/09/16 07:14 12/09/16 07:15 DC 12/09/16 08:41 6 MAURIZIO Lidocaine HCl (Lidocaine Pf 2% Vial) 5 ml STK-MED ONCE 12/09/16 07:21 12/09/16 07:22 DC Meropenem 500 mg/ Sodium Chloride 50 ml @ 100 mls/hr Q6HRS 12/07/16 12:00 12/09/16 05:10 100 MLS/HR Morphine Sulfate 2 mg PRN Q2HR PRN 12/06/16 20:15 12/07/16 20:14 DC Ondansetron HCl (Zofran) 4 mg STK-MED ONCE 12/09/16 08:23 12/09/16 08:24 DC Piperacillin Sod/ Tazobactam Sod (Zosyn Per Pharmacy) 1 each PRN DAILY PRN 12/06/16 21:15 12/07/16 08:28 DC Piperacillin Sod/ Tazobactam Sod 2.25 gm/Sodium Chloride 50 ml @ 100 mls/hr Q6HRS 12/07/16 06:00 12/07/16 08:28 DC 12/07/16 05:51 100 MLS/HR Piperacillin Sod/ Tazobactam Sod 3.375 gm/Sodium Chloride 50 ml @ 100 mls/hr 1X ONCE 12/06/16 21:30 12/06/16 21:59 DC 12/06/16 21:38 100 MLS/HR Propofol 20 ml @ As Directed STK-MED ONCE 12/09/16 07:21 12/09/16 07:22 DC Ringer's Solution 1,000 ml @ 30 mls/hr Q24H 12/09/16 07:00 12/09/16 18:59 12/09/16 07:00 30 MLS/HR Sevoflurane (Ultane) 30 ml STK-MED ONCE 12/09/16 08:03 12/09/16 08:04 DC Sodium Chloride 1,000 ml @ 125 mls/hr Q8H 12/06/16 20:13 12/07/16 20:12 DC 12/07/16 23:10 125 MLS/HR Vancomycin HCl 1 each 1X ONCE 12/08/16 21:30 12/08/16 21:30 DC Vancomycin HCl (Vanco Per Pharmacy) 1 each PRN DAILY PRN 12/06/16 21:15 12/07/16 02:28 DC 12/07/16 02:17 1 EACH Vancomycin HCl 1.5 gm/Sodium Chloride 500 ml @ 250 mls/hr Q24H 12/07/16 22:00 12/07/16 22:00 DC Vancomycin HCl 2 gm/Sodium Chloride 500 ml @ 250 mls/hr 1X ONCE 12/06/16 22:00 12/07/16 02:23 DC 12/06/16 22:00 250 MLS/HR Lab Laboratory Tests Test 12/09/16 03:35 White Blood Count 10.2 x10^3/uL (4.0-11.0) Red Blood Count 4.62 x10^6/uL (3.50-5.40) Hemoglobin 14.5 g/dL (12.0-15.5) Hematocrit 44.6 % (36.0-47.0) Mean Corpuscular Volume 96 fL (79-100) Mean Corpuscular Hemoglobin 31 pg (25-35) Mean Corpuscular Hemoglobin Concent 33 g/dL (31-37) Red Cell Distribution Width 16.2 % (11.5-14.5) Platelet Count 253 x10^3/uL (140-400) Neutrophils (%) (Auto) 68 % (31-73) Lymphocytes (%) (Auto) 16 % (24-48) Monocytes (%) (Auto) 15 % (0-9) Eosinophils (%) (Auto) 2 % (0-3) Basophils (%) (Auto) 0 % (0-3) Neutrophils # (Auto) 6.9 x10^3uL (1.8-7.7) Lymphocytes # (Auto) 1.6 x10^3/uL (1.0-4.8) Monocytes # (Auto) 1.5 x10^3/uL (0.0-1.1) Eosinophils # (Auto) 0.2 x10^3/uL (0.0-0.7) Basophils # (Auto) 0.0 x10^3/uL (0.0-0.2) Prothrombin Time 14.8 SEC (11.7-14.0) Prothromb Time International Ratio 1.2 (0.8-1.1) Sodium Level 139 mmol/L (136-145) Potassium Level 4.4 mmol/L (3.5-5.1) Chloride Level 105 mmol/L (98-107) Carbon Dioxide Level 25 mmol/L (21-32) Anion Gap 9 (6-14) Blood Urea Nitrogen 16 mg/dL (7-20) Creatinine 1.3 mg/dL (0.6-1.0) Estimated GFR (Cockcroft-Gault) 41.5 Glucose Level 92 mg/dL (70-99) Calcium Level 10.6 mg/dL (8.5-10.1) SHAILESH ALANIS MD December 09, 2016 11:23
--- NOTE | 2016-12-09 11:32 | OP ---
DATE OF SURGERY: 12/09/2016 OPERATION: Cystoscopy, right retrograde pyelogram. SURGEON: Migdalia Pathak M.D. ANESTHESIA: General. PREOPERATIVE DIAGNOSIS: Right hydroureteronephrosis. 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 INDICATIONS: The patient is a very pleasant 61-year-old white female with history of stone disease who had undergone previous ureteral procedures for right ureteral calculi several years ago by Dr. Renee and then also Dr. Brennan. The patient continued to have problems with obstruction and has a chronically obstructed right side and recently has been having problems with urinary tract infection. She was hospitalized most recently with this infection and is on IV antibiotics. The patient's CT scan shows the severe right hydroureteronephrosis and calculi in the right collecting system. The patient had workup by Dr. Brennan in the past, which showed poorly functioning right kidney and there is a very little cortex on the right kidney. I discussed with the patient the options, alternatives, benefits, risks and possible complications of cystoscopy with right retrograde pyelogram and possible right ureteral stent placement to get better drainage of her obstructed and infected urinary tract. She understands this and does wish to proceed ahead with the operation. DESCRIPTION OF PROCEDURE: After obtaining informed consent, the patient was taken to the operating room. After an excellent general anesthetic, the patient was placed in a dorsal lithotomy position. Groin was prepped and draped in sterile fashion. The patient was already on scheduled IV antibiotics to cover for the procedure. Panendoscopy and cystoscopy were then performed with the 30 and 70 degree lenses and the 21-Iranian cystoscope sheath. Bladder was entered and inspected. Both ureteral orifices were identified and found to be grossly patent. Bladder wall showed some mild erythematous changes in the bladder, but no bladder tumors or bladder stones were identified. Following this, a right retrograde pyelogram was performed. The right distal ureter appeared without any filling defects and then normal caliber and in the right mid ureter, the patient was noted to have severe narrowing of the right ureter and also would appear to be stones in the strictured area and then dilation of the ureter above that level. The thin floppy tipped ZIPwire was then passed up the right ureteral orifice up the right ureter to the level of the strictured area, but because of the severe stricturing and the stones in the ureter, the floppy tipped ZIPwire was unable to pass through this area. Therefore, the procedure was terminated. Bladder was then drained, the cystoscope withdrawn from the patient. The patient tolerated the procedure very well, was taken to recovery room in stable condition. We will consult Interventional Radiology to consider right percutaneous nephroscopy to get drainage of the right collecting system. MIGDALIA PATHAK MD DR: SHANDRA/kranthi JOB#: [id number] / [id number]
[2016-12-09 15:00] VITALS: BP 111/67
--- NOTE | 2016-12-09 15:55 | PDOC ---
PROGRESS NOTES Chief Complaint Chief Complaint UTI hydronephrosis, obst. uropathy on right sepsis CKD 3 dehydration weakness, aq. obesity, BMI 35 History of Present Illness History of Present Illness Uro eval, obs right kidney w/ UTI unable to pass stent for stricture, unable to clear hydro,. I discussed by phone with Dr. Rick Brennan at [facility]. he has seen the patient over a year ago, current situation and imaging discussed and he recommended Perc Nephrostomy and f/u in his clinic bleed risk with Eliquis noted, hold again today, resume after procedure, pt has IVC filter Vitals Vitals Vital Signs Date Time Temp Pulse Resp B/P (MAP) Pulse Ox O2 Delivery O2 Flow Rate FiO2 12/09/16 15:00 97.6 81 20 111/67 (82) 94 Room Air 97.6 12/09/16 09:33 2 Physical Exam General: Alert, Oriented X3, Cooperative, No acute distress Heart: Regular rate, No murmurs Lungs: Crackles, Other Abdomen: Normal bowel sounds (tender lower, not radiating, no guarding), Soft Extremities: No clubbing, No cyanosis, No edema Skin: No breakdown, No significant lesion Labs LABS Laboratory Tests Test 12/09/16 03:35 White Blood Count 10.2 x10^3/uL (4.0-11.0) Red Blood Count 4.62 x10^6/uL (3.50-5.40) Hemoglobin 14.5 g/dL (12.0-15.5) Hematocrit 44.6 % (36.0-47.0) Mean Corpuscular Volume 96 fL (79-100) Mean Corpuscular Hemoglobin 31 pg (25-35) Mean Corpuscular Hemoglobin Concent 33 g/dL (31-37) Red Cell Distribution Width 16.2 % (11.5-14.5) Platelet Count 253 x10^3/uL (140-400) Neutrophils (%) (Auto) 68 % (31-73) Lymphocytes (%) (Auto) 16 % (24-48) Monocytes (%) (Auto) 15 % (0-9) Eosinophils (%) (Auto) 2 % (0-3) Basophils (%) (Auto) 0 % (0-3) Neutrophils # (Auto) 6.9 x10^3uL (1.8-7.7) Lymphocytes # (Auto) 1.6 x10^3/uL (1.0-4.8) Monocytes # (Auto) 1.5 x10^3/uL (0.0-1.1) Eosinophils # (Auto) 0.2 x10^3/uL (0.0-0.7) Basophils # (Auto) 0.0 x10^3/uL (0.0-0.2) Prothrombin Time 14.8 SEC (11.7-14.0) Prothromb Time International Ratio 1.2 (0.8-1.1) Sodium Level 139 mmol/L (136-145) Potassium Level 4.4 mmol/L (3.5-5.1) Chloride Level 105 mmol/L (98-107) Carbon Dioxide Level 25 mmol/L (21-32) Anion Gap 9 (6-14) Blood Urea Nitrogen 16 mg/dL (7-20) Creatinine 1.3 mg/dL (0.6-1.0) Estimated GFR (Cockcroft-Gault) 41.5 Glucose Level 92 mg/dL (70-99) Calcium Level 10.6 mg/dL (8.5-10.1) Review of Systems Review of Systems some pain, nausea feels better Assessment and Plan Assessmemt and Plan Problems Medical Problems: (1) Abdominal pain Status: Acute (2) Pneumonia Status: Acute (3) UTI (lower urinary tract infection) Status: Acute Problems: Comment Review of Relevant I have reviewed the following items keegan (where applicable) has been applied. Labs Laboratory Tests Test 12/07/16 19:00 12/08/16 03:55 12/09/16 03:35 Lactic Acid Level 1.3 mmol/L (0.4-2.0) White Blood Count 12.5 x10^3/uL (4.0-11.0) 10.2 x10^3/uL (4.0-11.0) Red Blood Count 4.90 x10^6/uL (3.50-5.40) 4.62 x10^6/uL (3.50-5.40) Hemoglobin 15.4 g/dL (12.0-15.5) 14.5 g/dL (12.0-15.5) Hematocrit 47.6 % (36.0-47.0) 44.6 % (36.0-47.0) Mean Corpuscular Volume 97 fL (79-100) 96 fL (79-100) Mean Corpuscular Hemoglobin 31 pg (25-35) 31 pg (25-35) Mean Corpuscular Hemoglobin Concent 32 g/dL (31-37) 33 g/dL (31-37) Red Cell Distribution Width 16.4 % (11.5-14.5) 16.2 % (11.5-14.5) Platelet Count 245 x10^3/uL (140-400) 253 x10^3/uL (140-400) Neutrophils (%) (Auto) 55 % (31-73) 68 % (31-73) Lymphocytes (%) (Auto) 25 % (24-48) 16 % (24-48) Monocytes (%) (Auto) 18 % (0-9) 15 % (0-9) Eosinophils (%) (Auto) 2 % (0-3) 2 % (0-3) Basophils (%) (Auto) 1 % (0-3) 0 % (0-3) Neutrophils # (Auto) 6.9 x10^3uL (1.8-7.7) 6.9 x10^3uL (1.8-7.7) Lymphocytes # (Auto) 3.1 x10^3/uL (1.0-4.8) 1.6 x10^3/uL (1.0-4.8) Monocytes # (Auto) 2.2 x10^3/uL (0.0-1.1) 1.5 x10^3/uL (0.0-1.1) Eosinophils # (Auto) 0.2 x10^3/uL (0.0-0.7) 0.2 x10^3/uL (0.0-0.7) Basophils # (Auto) 0.1 x10^3/uL (0.0-0.2) 0.0 x10^3/uL (0.0-0.2) Sodium Level 140 mmol/L (136-145) 139 mmol/L (136-145) Potassium Level 4.3 mmol/L (3.5-5.1) 4.4 mmol/L (3.5-5.1) Chloride Level 108 mmol/L (98-107) 105 mmol/L (98-107) Carbon Dioxide Level 26 mmol/L (21-32) 25 mmol/L (21-32) Anion Gap 6 (6-14) 9 (6-14) Blood Urea Nitrogen 17 mg/dL (7-20) 16 mg/dL (7-20) Creatinine 1.8 mg/dL (0.6-1.0) 1.3 mg/dL (0.6-1.0) Estimated GFR (Cockcroft-Gault) 28.5 41.5 Glucose Level 97 mg/dL (70-99) 92 mg/dL (70-99) Calcium Level 9.6 mg/dL (8.5-10.1) 10.6 mg/dL (8.5-10.1) Prothrombin Time 14.8 SEC (11.7-14.0) Prothromb Time International Ratio 1.2 (0.8-1.1) Laboratory Tests Test 12/09/16 03:35 White Blood Count 10.2 x10^3/uL (4.0-11.0) Red Blood Count 4.62 x10^6/uL (3.50-5.40) Hemoglobin 14.5 g/dL (12.0-15.5) Hematocrit 44.6 % (36.0-47.0) Mean Corpuscular Volume 96 fL (79-100) Mean Corpuscular Hemoglobin 31 pg (25-35) Mean Corpuscular Hemoglobin Concent 33 g/dL (31-37) Red Cell Distribution Width 16.2 % (11.5-14.5) Platelet Count 253 x10^3/uL (140-400) Neutrophils (%) (Auto) 68 % (31-73) Lymphocytes (%) (Auto) 16 % (24-48) Monocytes (%) (Auto) 15 % (0-9) Eosinophils (%) (Auto) 2 % (0-3) Basophils (%) (Auto) 0 % (0-3) Neutrophils # (Auto) 6.9 x10^3uL (1.8-7.7) Lymphocytes # (Auto) 1.6 x10^3/uL (1.0-4.8) Monocytes # (Auto) 1.5 x10^3/uL (0.0-1.1) Eosinophils # (Auto) 0.2 x10^3/uL (0.0-0.7) Basophils # (Auto) 0.0 x10^3/uL (0.0-0.2) Prothrombin Time 14.8 SEC (11.7-14.0) Prothromb Time International Ratio 1.2 (0.8-1.1) Sodium Level 139 mmol/L (136-145) Potassium Level 4.4 mmol/L (3.5-5.1) Chloride Level 105 mmol/L (98-107) Carbon Dioxide Level 25 mmol/L (21-32) Anion Gap 9 (6-14) Blood Urea Nitrogen 16 mg/dL (7-20) Creatinine 1.3 mg/dL (0.6-1.0) Estimated GFR (Cockcroft-Gault) 41.5 Glucose Level 92 mg/dL (70-99) Calcium Level 10.6 mg/dL (8.5-10.1) Microbiology 12/06/16 Urine Culture - Final, Complete 12/06/16 Urine Culture Result 1 (TRENA) - Final, Complete Medications Current Medications Sodium Chloride 500 ml @ 500 mls/hr 1X ONCE IV Last administered on 19:52; Start 12/06/16 at 19:45; Stop 12/06/16 at 20:44; Status DC Ondansetron HCl (Zofran) 4 mg 1X ONCE IV Last administered on 12/06/16 19:51 ; Start 12/06/16 at 19:45; Stop 12/06/16 at 19:46; Status DC Acetaminophen (Tylenol) 650 mg 1X ONCE PO Last administered on 12/06/16 19:51 ; Start 12/06/16 at 19:45; Stop 12/06/16 at 19:46; Status DC Ondansetron HCl (Zofran) 4 mg PRN Q8HRS PRN IV NAUSEA/VOMITING; Start 12/06/16 at 20:15; Stop 12/07/16 at 20:14; Status DC Morphine Sulfate 2 mg PRN Q2HR PRN IV PAIN; Start 12/06/16 at 20:15; Stop 12/07 at 20:14; Status DC Sodium Chloride 1,000 ml @ 125 mls/hr Q8H IV Last administered on 12/07/16 23 :10; Start 12/06/16 at 20:13; Stop 12/07/16 at 20:12; Status DC Vancomycin HCl (Vanco Per Pharmacy) 1 each PRN DAILY PRN MC SEE COMMENTS Last administered on 12/07/16 02:17; Start 12/06/16 at 21:15; Stop 12/07/16 at 02:28 ; Status DC Piperacillin Sod/ Tazobactam Sod (Zosyn Per Pharmacy) 1 each PRN DAILY PRN MC SEE COMMENTS; Start 12/06/16 at 21:15; Stop 12/07/16 at 08:28; Status DC Vancomycin HCl 2 gm/Sodium Chloride 500 ml @ 250 mls/hr 1X ONCE IV Last administered on 12/06/16 22:00; Start 12/06/16 at 22:00; Stop 12/07/16 at 02:23 ; Status DC Piperacillin Sod/ Tazobactam Sod 3.375 gm/Sodium Chloride 50 ml @ 100 mls/hr 1X ONCE IV Last administered on 12/06/16 21:38; Start 12/06/16 at 21:30; Stop 12/06/16 at 21:59; Status DC Piperacillin Sod/ Tazobactam Sod 2.25 gm/Sodium Chloride 50 ml @ 100 mls/hr Q6HRS IV Last administered on 12/07/16 05:51; Start 12/07/16 at 06:00; Stop at 08:28; Status DC Vancomycin HCl 1.5 gm/Sodium Chloride 500 ml @ 250 mls/hr Q24H IV ; Start 12/07 at 22:00; Stop 12/07/16 at 22:00; Status DC Vancomycin HCl 1 each 1X ONCE MC ; Start 12/08/16 at 21:30; Stop 12/08/16 at 21 :30; Status DC Diphenhydramine HCl (Benadryl) 25 mg 1X ONCE IVP Last administered on 02:42; Start 12/07/16 at 03:00; Stop 12/07/16 at 03:01; Status DC Artificial Tears (Artificial Tears) 1 drop PRN Q15MIN PRN OU DRY EYE Last administered on 12/07/16 12:11; Start 12/07/16 at 08:30 Meropenem 500 mg/ Sodium Chloride 50 ml @ 100 mls/hr Q6HRS IV Last administered on 12/09/16 12:01; Start 12/07/16 at 12:00 Ciprofloxacin (Ciloxan Ophth) 1 drop QID OU Last administered on 12/09/16 12: 01; Start 12/07/16 at 09:00 Apixaban (Eliquis) 5 mg BID PO Last administered on 12/08/16 09:22; Start at 09:00; Stop 12/08/16 at 12:28; Status DC Acetaminophen/ Hydrocodone Bitart (Lortab 5/325) 1 tab PRN Q4HRS PRN PO PAIN Last administered on 12/08/16 06:30; Start 12/07/16 at 08:45 Info (Anti-Coagulation Monitoring By Pharmacy) 1 each PRN DAILY PRN MC SEE COMMENTS; Start 12/07/16 at 08:45 Acetaminophen (Tylenol) 650 mg PRN Q6HRS PRN PO pain or fever Last administered on 12/08/16 23:20; Start 12/07/16 at 12:30 Ondansetron HCl (Zofran) 4 mg PRN Q8HRS PRN IV NAUSEA/VOMITING Last administered on 12/08/16 17:27; Start 12/08/16 at 08:45 Ondansetron HCl (Zofran) 4 mg PRN Q6HRS PRN IV NAUSEA/VOMITING; Start 12/09/16 at 07:00; Stop 12/10/16 at 06:59 Fentanyl Citrate (Fentanyl 2ml Vial) 25 mcg PRN Q5MIN PRN IV MILD PAIN; Start 12/09/16 at 07:00; Stop 12/10/16 at 06:59 Fentanyl Citrate (Fentanyl 2ml Vial) 50 mcg PRN Q5MIN PRN IV MODERATE PAIN; Start 12/09/16 at 07:00; Stop 12/10/16 at 06:59 Ringer's Solution 1,000 ml @ 30 mls/hr Q24H IV Last administered on 12/09/16 07:00; Start 12/09/16 at 07:00; Stop 12/09/16 at 18:59 Lidocaine HCl 2 ml PRN 1X PRN ID PRIOR TO IV START; Start 12/09/16 at 07:00; Stop 12/10/16 at 06:59 Lidocaine HCl (Glydo (Lidocaine) Jelly) 6 maurizio STK-MED ONCE .ROUTE Last administered on 12/09/16 08:41; Start 12/09/16 at 07:13; Stop 12/09/16 at 07:14 ; Status DC Iohexol (Omnipaque 300 Mg/ml) 50 ml STK-MED ONCE .ROUTE Last administered on 08:12; Start 12/09/16 at 07:14; Stop 12/09/16 at 07:15; Status DC Lidocaine HCl (Glydo (Lidocaine) Jelly) 6 maurizio STK-MED ONCE .ROUTE Last administered on 12/09/16 08:41; Start 12/09/16 at 07:14; Stop 12/09/16 at 07:15 ; Status DC Lidocaine HCl (Lidocaine Pf 2% Vial) 5 ml STK-MED ONCE .ROUTE ; Start 12/09/16 at 07:21; Stop 12/09/16 at 07:22; Status DC Propofol 20 ml @ As Directed STK-MED ONCE IV ; Start 12/09/16 at 07:21; Stop at 07:22; Status DC Fentanyl Citrate (Fentanyl 2ml Vial) 100 mcg STK-MED ONCE .ROUTE ; Start at 07:22; Stop 12/09/16 at 07:23; Status DC Dexamethasone Sodium Phosphate (Decadron) 20 mg STK-MED ONCE .ROUTE ; Start at 08:03; Stop 12/09/16 at 08:04; Status DC Sevoflurane (Ultane) 30 ml STK-MED ONCE IH ; Start 12/09/16 at 08:03; Stop 12/09 at 08:04; Status DC Ondansetron HCl (Zofran) 4 mg STK-MED ONCE .ROUTE ; Start 12/09/16 at 08:23; Stop 12/09/16 at 08:24; Status DC Active Scripts Active Hydrocodone-Apap 5-325 (Hydrocodone Bit/Acetaminophen) 1 Each Tablet 1 Tab PO PRN Q4HRS PRN Eliquis (Apixaban) 5 Mg Tablet 5 Mg PO BID 30 Days Eliquis (Apixaban) 5 Mg Tablet 10 Mg PO BID 7 Days Vitals/I & O Vital Sign - Last 24 Hours 12/08/16 12/08/16 12/08/16 12/09/16 19:00 20:00 23:00 03:09 Temp 97.7 98.2 97.9 97.7 98.2 97.9 Pulse 78 89 84 Resp 20 20 20 B/P (MAP) 120/66 (84) 129/67 (87) 117/71 (86) Pulse Ox 89 98 89 O2 Delivery Room Air Room Air Room Air Room Air 12/09/16 12/09/16 12/09/16 12/09/16 07:20 08:00 08:48 08:48 Temp 97.0 97.4 97.0 97.4 Pulse 79 67 Resp 16 20 B/P (MAP) 135/74 117/61 Pulse Ox 91 97 O2 Delivery Room Air Room Air Mask Simple Mask O2 Flow Rate 10 10 12/09/16 12/09/16 12/09/16 12/09/16 09:03 09:18 09:33 11:00 Temp 98.1 98.1 97.8 98.1 98.1 97.8 Pulse 70 74 74 76 Resp 20 20 20 B/P (MAP) 111/71 117/74 119/80 119/80 (93) Pulse Ox 99 94 94 94 O2 Delivery Simple Mask Nasal Cannula Nasal Cannula Room Air O2 Flow Rate 10 2 2 12/09/16 15:00 Temp 97.6 97.6 Pulse 81 Resp 20 B/P (MAP) 111/67 (82) Pulse Ox 94 O2 Delivery Room Air Intake and Output 12/08/16 12/08/16 12/09/16 15:00 23:00 07:00 Intake Total 100 ml 50 ml 150 ml Output Total 500 ml Balance 100 ml 50 ml -350 ml KASSANDRA BURNETT MD December 09, 2016 15:55
[2016-12-09 19:00] VITALS: BP 111/63
[2016-12-09 20:27] LABS: INR 1.2 (0.8-1.1); PROTHROMBIN TIME PATIENT 14.1 SEC (11.7-14.0)
[2016-12-09 23:00] VITALS: BP 105/67
[2016-12-10] VITALS (18 sets, daily range): BP systolic 91–151; BP diastolic 51–93
[2016-12-10] MEDS: MEROPENEM 500 MG in IV NORMAL SALINE 50ML 50 ML IV SCH ×4 (05:48→23:44)
--- NOTE | 2016-12-10 08:13 | PDOC ---
PROGRESS NOTES Subjective Subjective Pt. feeling well. Objective Objective Vital Signs Date Time Temp Pulse Resp B/P (MAP) Pulse Ox O2 Delivery O2 Flow Rate FiO2 12/10/16 07:00 96.7 65 17 105/59 (74) 92 Room Air 96.7 12/09/16 09:33 2 Intake and Output 12/10/16 06:59 Intake Total 700 ml Output Total 0 ml Balance 700 ml Intake Oral 400 ml IV Total 300 ml Output Urine Total 0 ml # Voids 5 Physical Exam Physical Exam Abd-soft, non-tender. No CVA tenderness Plan Plan of Care Plan to do right percutaneous nephrostomy today by IR and then f/u with Dr. Brennan at urology in near future to consider right nephrectomy. I will be on leave untJanuary 01. Problems Medical Problems: (1) Abdominal pain Status: Acute (2) Pneumonia Status: Acute (3) UTI (lower urinary tract infection) Status: Acute Comment Review of Relevant I have reviewed the following items keegan (where applicable) has been applied. Labs Laboratory Tests Test 12/09/16 03:35 12/09/16 20:10 White Blood Count 10.2 x10^3/uL (4.0-11.0) Red Blood Count 4.62 x10^6/uL (3.50-5.40) Hemoglobin 14.5 g/dL (12.0-15.5) Hematocrit 44.6 % (36.0-47.0) Mean Corpuscular Volume 96 fL (79-100) Mean Corpuscular Hemoglobin 31 pg (25-35) Mean Corpuscular Hemoglobin Concent 33 g/dL (31-37) Red Cell Distribution Width 16.2 % (11.5-14.5) Platelet Count 253 x10^3/uL (140-400) Neutrophils (%) (Auto) 68 % (31-73) Lymphocytes (%) (Auto) 16 % (24-48) Monocytes (%) (Auto) 15 % (0-9) Eosinophils (%) (Auto) 2 % (0-3) Basophils (%) (Auto) 0 % (0-3) Neutrophils # (Auto) 6.9 x10^3uL (1.8-7.7) Lymphocytes # (Auto) 1.6 x10^3/uL (1.0-4.8) Monocytes # (Auto) 1.5 x10^3/uL (0.0-1.1) Eosinophils # (Auto) 0.2 x10^3/uL (0.0-0.7) Basophils # (Auto) 0.0 x10^3/uL (0.0-0.2) Prothrombin Time 14.8 SEC (11.7-14.0) 14.1 SEC (11.7-14.0) Prothromb Time International Ratio 1.2 (0.8-1.1) 1.2 (0.8-1.1) Sodium Level 139 mmol/L (136-145) Potassium Level 4.4 mmol/L (3.5-5.1) Chloride Level 105 mmol/L (98-107) Carbon Dioxide Level 25 mmol/L (21-32) Anion Gap 9 (6-14) Blood Urea Nitrogen 16 mg/dL (7-20) Creatinine 1.3 mg/dL (0.6-1.0) Estimated GFR (Cockcroft-Gault) 41.5 Glucose Level 92 mg/dL (70-99) Calcium Level 10.6 mg/dL (8.5-10.1) Laboratory Tests Test 12/09/16 20:10 Prothrombin Time 14.1 SEC (11.7-14.0) Prothromb Time International Ratio 1.2 (0.8-1.1) Microbiology 12/06/16 Urine Culture - Final, Complete 12/06/16 Urine Culture Result 1 (TRENA) - Final, Complete Medications Current Medications Sodium Chloride 500 ml @ 500 mls/hr 1X ONCE IV Last administered on 19:52; Start 12/06/16 at 19:45; Stop 12/06/16 at 20:44; Status DC Ondansetron HCl (Zofran) 4 mg 1X ONCE IV Last administered on 12/06/16 19:51 ; Start 12/06/16 at 19:45; Stop 12/06/16 at 19:46; Status DC Acetaminophen (Tylenol) 650 mg 1X ONCE PO Last administered on 12/06/16 19:51 ; Start 12/06/16 at 19:45; Stop 12/06/16 at 19:46; Status DC Ondansetron HCl (Zofran) 4 mg PRN Q8HRS PRN IV NAUSEA/VOMITING; Start 12/06/16 at 20:15; Stop 12/07/16 at 20:14; Status DC Morphine Sulfate 2 mg PRN Q2HR PRN IV PAIN; Start 12/06/16 at 20:15; Stop 12/07 at 20:14; Status DC Sodium Chloride 1,000 ml @ 125 mls/hr Q8H IV Last administered on 12/07/16 23 :10; Start 12/06/16 at 20:13; Stop 12/07/16 at 20:12; Status DC Vancomycin HCl (Vanco Per Pharmacy) 1 each PRN DAILY PRN MC SEE COMMENTS Last administered on 12/07/16 02:17; Start 12/06/16 at 21:15; Stop 12/07/16 at 02:28 ; Status DC Piperacillin Sod/ Tazobactam Sod (Zosyn Per Pharmacy) 1 each PRN DAILY PRN MC SEE COMMENTS; Start 12/06/16 at 21:15; Stop 12/07/16 at 08:28; Status DC Vancomycin HCl 2 gm/Sodium Chloride 500 ml @ 250 mls/hr 1X ONCE IV Last administered on 12/06/16 22:00; Start 12/06/16 at 22:00; Stop 12/07/16 at 02:23 ; Status DC Piperacillin Sod/ Tazobactam Sod 3.375 gm/Sodium Chloride 50 ml @ 100 mls/hr 1X ONCE IV Last administered on 12/06/16 21:38; Start 12/06/16 at 21:30; Stop 12/06/16 at 21:59; Status DC Piperacillin Sod/ Tazobactam Sod 2.25 gm/Sodium Chloride 50 ml @ 100 mls/hr Q6HRS IV Last administered on 12/07/16 05:51; Start 12/07/16 at 06:00; Stop at 08:28; Status DC Vancomycin HCl 1.5 gm/Sodium Chloride 500 ml @ 250 mls/hr Q24H IV ; Start 12/07 at 22:00; Stop 12/07/16 at 22:00; Status DC Vancomycin HCl 1 each 1X ONCE MC ; Start 12/08/16 at 21:30; Stop 12/08/16 at 21 :30; Status DC Diphenhydramine HCl (Benadryl) 25 mg 1X ONCE IVP Last administered on 02:42; Start 12/07/16 at 03:00; Stop 12/07/16 at 03:01; Status DC Artificial Tears (Artificial Tears) 1 drop PRN Q15MIN PRN OU DRY EYE Last administered on 12/07/16 12:11; Start 12/07/16 at 08:30 Meropenem 500 mg/ Sodium Chloride 50 ml @ 100 mls/hr Q6HRS IV Last administered on 12/10/16 05:48; Start 12/07/16 at 12:00 Ciprofloxacin (Ciloxan Ophth) 1 drop QID OU Last administered on 12/09/16 21: 30; Start 12/07/16 at 09:00 Apixaban (Eliquis) 5 mg BID PO Last administered on 12/08/16 09:22; Start at 09:00; Stop 12/08/16 at 12:28; Status DC Acetaminophen/ Hydrocodone Bitart (Lortab 5/325) 1 tab PRN Q4HRS PRN PO PAIN Last administered on 12/08/16 06:30; Start 12/07/16 at 08:45 Info (Anti-Coagulation Monitoring By Pharmacy) 1 each PRN DAILY PRN MC SEE COMMENTS; Start 12/07/16 at 08:45 Acetaminophen (Tylenol) 650 mg PRN Q6HRS PRN PO pain or fever Last administered on 12/08/16 23:20; Start 12/07/16 at 12:30 Ondansetron HCl (Zofran) 4 mg PRN Q8HRS PRN IV NAUSEA/VOMITING Last administered on 12/08/16 17:27; Start 12/08/16 at 08:45 Ondansetron HCl (Zofran) 4 mg PRN Q6HRS PRN IV NAUSEA/VOMITING; Start 12/09/16 at 07:00; Stop 12/10/16 at 06:59; Status DC Fentanyl Citrate (Fentanyl 2ml Vial) 25 mcg PRN Q5MIN PRN IV MILD PAIN; Start 12/09/16 at 07:00; Stop 12/10/16 at 06:59; Status DC Fentanyl Citrate (Fentanyl 2ml Vial) 50 mcg PRN Q5MIN PRN IV MODERATE PAIN; Start 12/09/16 at 07:00; Stop 12/10/16 at 06:59; Status DC Ringer's Solution 1,000 ml @ 30 mls/hr Q24H IV Last administered on 12/09/16 07:00; Start 12/09/16 at 07:00; Stop 12/09/16 at 18:59; Status DC Lidocaine HCl 2 ml PRN 1X PRN ID PRIOR TO IV START; Start 12/09/16 at 07:00; Stop 12/10/16 at 06:59; Status DC Lidocaine HCl (Glydo (Lidocaine) Jelly) 6 maurizio STK-MED ONCE .ROUTE Last administered on 12/09/16 08:41; Start 12/09/16 at 07:13; Stop 12/09/16 at 07:14 ; Status DC Iohexol (Omnipaque 300 Mg/ml) 50 ml STK-MED ONCE .ROUTE Last administered on 08:12; Start 12/09/16 at 07:14; Stop 12/09/16 at 07:15; Status DC Lidocaine HCl (Glydo (Lidocaine) Jelly) 6 maurizio STK-MED ONCE .ROUTE Last administered on 12/09/16 08:41; Start 12/09/16 at 07:14; Stop 12/09/16 at 07:15 ; Status DC Lidocaine HCl (Lidocaine Pf 2% Vial) 5 ml STK-MED ONCE .ROUTE ; Start 12/09/16 at 07:21; Stop 12/09/16 at 07:22; Status DC Propofol 20 ml @ As Directed STK-MED ONCE IV ; Start 12/09/16 at 07:21; Stop at 07:22; Status DC Fentanyl Citrate (Fentanyl 2ml Vial) 100 mcg STK-MED ONCE .ROUTE ; Start at 07:22; Stop 12/09/16 at 07:23; Status DC Dexamethasone Sodium Phosphate (Decadron) 20 mg STK-MED ONCE .ROUTE ; Start at 08:03; Stop 12/09/16 at 08:04; Status DC Sevoflurane (Ultane) 30 ml STK-MED ONCE IH ; Start 12/09/16 at 08:03; Stop 12/09 at 08:04; Status DC Ondansetron HCl (Zofran) 4 mg STK-MED ONCE .ROUTE ; Start 12/09/16 at 08:23; Stop 12/09/16 at 08:24; Status DC Active Scripts Active Hydrocodone-Apap 5-325 (Hydrocodone Bit/Acetaminophen) 1 Each Tablet 1 Tab PO PRN Q4HRS PRN Eliquis (Apixaban) 5 Mg Tablet 5 Mg PO BID 30 Days Eliquis (Apixaban) 5 Mg Tablet 10 Mg PO BID 7 Days Vitals/I & O Vital Sign - Last 24 Hours 12/09/16 12/09/16 12/09/16 12/09/16 08:48 08:48 09:03 09:18 Temp 97.4 98.1 97.4 98.1 Pulse 67 70 74 Resp 20 20 20 B/P (MAP) 117/61 111/71 117/74 Pulse Ox 97 99 94 O2 Delivery Mask Simple Mask Simple Mask Nasal Cannula O2 Flow Rate 10 10 10 2 12/09/16 12/09/16 12/09/16 12/09/16 09:33 11:00 15:00 19:00 Temp 98.1 97.8 97.6 96.4 98.1 97.8 97.6 96.4 Pulse 74 76 81 78 Resp 20 20 18 B/P (MAP) 119/80 119/80 (93) 111/67 (82) 111/63 (79) Pulse Ox 94 94 94 93 O2 Delivery Nasal Cannula Room Air Room Air Room Air O2 Flow Rate 2 12/09/16 12/09/16 12/10/16 12/10/16 20:00 23:00 03:00 07:00 Temp 96.3 96.4 96.7 96.3 96.4 96.7 Pulse 77 63 65 Resp 18 18 17 B/P (MAP) 105/67 (80) 105/67 (80) 105/59 (74) Pulse Ox 91 95 92 O2 Delivery Room Air Room Air Room Air Room Air Intake and Output 12/09/16 12/09/16 12/10/16 14:59 22:59 06:59 Intake Total 250 ml 450 ml Output Total 0 ml Balance 250 ml 450 ml MIGDALIA GIMENEZ MD Dec 10, 2016 08:13
[2016-12-10] MEDS: CIPROFLOXACIN 0.3% OPHTH SOLUTION 5ML BOTTLE. OU SCH ×4 (08:56→20:06)
--- NOTE | 2016-12-10 10:23 | PDOC ---
PROGRESS NOTES Chief Complaint Chief Complaint UTI hydronephrosis, obst. uropathy on right sepsis CKD 3 dehydration weakness, aq. obesity, BMI 35 History of Present Illness History of Present Illness Uro eval, obs right kidney w/ UTI unable to pass stent for stricture, unable to clear hydro,. plan Perc Nephrostomy today will then Dr. Rick Brennan at [facility]. y and f/u in his clinic, Dr. Pathak consider nephrectomy bleed risk with Eliquis noted, resume after procedure, pt has IVC filter Vitals Vitals Vital Signs Date Time Temp Pulse Resp B/P (MAP) Pulse Ox O2 Delivery O2 Flow Rate FiO2 12/10/16 07:00 96.7 65 17 105/59 (74) 92 Room Air 96.7 12/09/16 09:33 2 Physical Exam General: Alert, Oriented X3, Cooperative, No acute distress Heart: Regular rate, No murmurs Lungs: Crackles, Other Abdomen: Normal bowel sounds (tender lower, not radiating, no guarding), Soft Extremities: No clubbing, No cyanosis, No edema Skin: No breakdown, No significant lesion Labs LABS Laboratory Tests Test 12/09/16 20:10 Prothrombin Time 14.1 SEC (11.7-14.0) Prothromb Time International Ratio 1.2 (0.8-1.1) Review of Systems Review of Systems some abd pain dry mouth as NPO Assessment and Plan Assessmemt and Plan Problems Medical Problems: (1) Abdominal pain Status: Acute (2) Pneumonia Status: Acute (3) UTI (lower urinary tract infection) Status: Acute Problems: Comment Review of Relevant I have reviewed the following items keegan (where applicable) has been applied. Labs Laboratory Tests Test 12/09/16 03:35 12/09/16 20:10 White Blood Count 10.2 x10^3/uL (4.0-11.0) Red Blood Count 4.62 x10^6/uL (3.50-5.40) Hemoglobin 14.5 g/dL (12.0-15.5) Hematocrit 44.6 % (36.0-47.0) Mean Corpuscular Volume 96 fL (79-100) Mean Corpuscular Hemoglobin 31 pg (25-35) Mean Corpuscular Hemoglobin Concent 33 g/dL (31-37) Red Cell Distribution Width 16.2 % (11.5-14.5) Platelet Count 253 x10^3/uL (140-400) Neutrophils (%) (Auto) 68 % (31-73) Lymphocytes (%) (Auto) 16 % (24-48) Monocytes (%) (Auto) 15 % (0-9) Eosinophils (%) (Auto) 2 % (0-3) Basophils (%) (Auto) 0 % (0-3) Neutrophils # (Auto) 6.9 x10^3uL (1.8-7.7) Lymphocytes # (Auto) 1.6 x10^3/uL (1.0-4.8) Monocytes # (Auto) 1.5 x10^3/uL (0.0-1.1) Eosinophils # (Auto) 0.2 x10^3/uL (0.0-0.7) Basophils # (Auto) 0.0 x10^3/uL (0.0-0.2) Prothrombin Time 14.8 SEC (11.7-14.0) 14.1 SEC (11.7-14.0) Prothromb Time International Ratio 1.2 (0.8-1.1) 1.2 (0.8-1.1) Sodium Level 139 mmol/L (136-145) Potassium Level 4.4 mmol/L (3.5-5.1) Chloride Level 105 mmol/L (98-107) Carbon Dioxide Level 25 mmol/L (21-32) Anion Gap 9 (6-14) Blood Urea Nitrogen 16 mg/dL (7-20) Creatinine 1.3 mg/dL (0.6-1.0) Estimated GFR (Cockcroft-Gault) 41.5 Glucose Level 92 mg/dL (70-99) Calcium Level 10.6 mg/dL (8.5-10.1) Laboratory Tests Test 12/09/16 20:10 Prothrombin Time 14.1 SEC (11.7-14.0) Prothromb Time International Ratio 1.2 (0.8-1.1) Microbiology 12/06/16 Urine Culture - Final, Complete 12/06/16 Urine Culture Result 1 (TRENA) - Final, Complete Medications Current Medications Sodium Chloride 500 ml @ 500 mls/hr 1X ONCE IV Last administered on t 19:52; Start 12/06/16 at 19:45; Stop 12/06/16 at 20:44; Status DC Ondansetron HCl (Zofran) 4 mg 1X ONCE IV Last administered on 12/06/16 19:51 ; Start 12/06/16 at 19:45; Stop 12/06/16 at 19:46; Status DC Acetaminophen (Tylenol) 650 mg 1X ONCE PO Last administered on 12/06/16 19:51 ; Start 12/06/16 at 19:45; Stop 12/06/16 at 19:46; Status DC Ondansetron HCl (Zofran) 4 mg PRN Q8HRS PRN IV NAUSEA/VOMITING; Start 12/06/16 at 20:15; Stop 12/07/16 at 20:14; Status DC Morphine Sulfate 2 mg PRN Q2HR PRN IV PAIN; Start 12/06/16 at 20:15; Stop 12/07 at 20:14; Status DC Sodium Chloride 1,000 ml @ 125 mls/hr Q8H IV Last administered on 12/07/16 23 :10; Start 12/06/16 at 20:13; Stop 12/07/16 at 20:12; Status DC Vancomycin HCl (Vanco Per Pharmacy) 1 each PRN DAILY PRN MC SEE COMMENTS Last administered on 12/07/16 02:17; Start 12/06/16 at 21:15; Stop 12/07/16 at 02:28 ; Status DC Piperacillin Sod/ Tazobactam Sod (Zosyn Per Pharmacy) 1 each PRN DAILY PRN MC SEE COMMENTS; Start 12/06/16 at 21:15; Stop 12/07/16 at 08:28; Status DC Vancomycin HCl 2 gm/Sodium Chloride 500 ml @ 250 mls/hr 1X ONCE IV Last administered on 12/06/16 22:00; Start 12/06/16 at 22:00; Stop 12/07/16 at 02:23 ; Status DC Piperacillin Sod/ Tazobactam Sod 3.375 gm/Sodium Chloride 50 ml @ 100 mls/hr 1X ONCE IV Last administered on 12/06/16 21:38; Start 12/06/16 at 21:30; Stop 12/06/16 at 21:59; Status DC Piperacillin Sod/ Tazobactam Sod 2.25 gm/Sodium Chloride 50 ml @ 100 mls/hr Q6HRS IV Last administered on 12/07/16 05:51; Start 12/07/16 at 06:00; Stop at 08:28; Status DC Vancomycin HCl 1.5 gm/Sodium Chloride 500 ml @ 250 mls/hr Q24H IV ; Start 12/07 at 22:00; Stop 12/07/16 at 22:00; Status DC Vancomycin HCl 1 each 1X ONCE MC ; Start 12/08/16 at 21:30; Stop 12/08/16 at 21 :30; Status DC Diphenhydramine HCl (Benadryl) 25 mg 1X ONCE IVP Last administered on 02:42; Start 12/07/16 at 03:00; Stop 12/07/16 at 03:01; Status DC Artificial Tears (Artificial Tears) 1 drop PRN Q15MIN PRN OU DRY EYE Last administered on 12/07/16 12:11; Start 12/07/16 at 08:30 Meropenem 500 mg/ Sodium Chloride 50 ml @ 100 mls/hr Q6HRS IV Last administered on 12/10/16 05:48; Start 12/07/16 at 12:00 Ciprofloxacin (Ciloxan Ophth) 1 drop QID OU Last administered on 12/10/16 08:56 ; Start 12/07/16 at 09:00 Apixaban (Eliquis) 5 mg BID PO Last administered on 12/08/16 09:22; Start at 09:00; Stop 12/08/16 at 12:28; Status DC Acetaminophen/ Hydrocodone Bitart (Lortab 5/325) 1 tab PRN Q4HRS PRN PO PAIN Last administered on 12/08/16 06:30; Start 12/07/16 at 08:45 Info (Anti-Coagulation Monitoring By Pharmacy) 1 each PRN DAILY PRN MC SEE COMMENTS; Start 12/07/16 at 08:45 Acetaminophen (Tylenol) 650 mg PRN Q6HRS PRN PO pain or fever Last administered on 12/08/16 23:20; Start 12/07/16 at 12:30 Ondansetron HCl (Zofran) 4 mg PRN Q8HRS PRN IV NAUSEA/VOMITING Last administered on 12/08/16 17:27; Start 12/08/16 at 08:45 Ondansetron HCl (Zofran) 4 mg PRN Q6HRS PRN IV NAUSEA/VOMITING; Start 12/09/16 at 07:00; Stop 12/10/16 at 06:59; Status DC Fentanyl Citrate (Fentanyl 2ml Vial) 25 mcg PRN Q5MIN PRN IV MILD PAIN; Start 12/09/16 at 07:00; Stop 12/10/16 at 06:59; Status DC Fentanyl Citrate (Fentanyl 2ml Vial) 50 mcg PRN Q5MIN PRN IV MODERATE PAIN; Start 12/09/16 at 07:00; Stop 12/10/16 at 06:59; Status DC Ringer's Solution 1,000 ml @ 30 mls/hr Q24H IV Last administered on 12/09/16 07:00; Start 12/09/16 at 07:00; Stop 12/09/16 at 18:59; Status DC Lidocaine HCl 2 ml PRN 1X PRN ID PRIOR TO IV START; Start 12/09/16 at 07:00; Stop 12/10/16 at 06:59; Status DC Lidocaine HCl (Glydo (Lidocaine) Jelly) 6 maurizio STK-MED ONCE .ROUTE Last administered on 12/09/16 08:41; Start 12/09/16 at 07:13; Stop 12/09/16 at 07:14 ; Status DC Iohexol (Omnipaque 300 Mg/ml) 50 ml STK-MED ONCE .ROUTE Last administered on 08:12; Start 12/09/16 at 07:14; Stop 12/09/16 at 07:15; Status DC Lidocaine HCl (Glydo (Lidocaine) Jelly) 6 maurizio STK-MED ONCE .ROUTE Last administered on 12/09/16 08:41; Start 12/09/16 at 07:14; Stop 12/09/16 at 07:15 ; Status DC Lidocaine HCl (Lidocaine Pf 2% Vial) 5 ml STK-MED ONCE .ROUTE ; Start 12/09/16 at 07:21; Stop 12/09/16 at 07:22; Status DC Propofol 20 ml @ As Directed STK-MED ONCE IV ; Start 12/09/16 at 07:21; Stop at 07:22; Status DC Fentanyl Citrate (Fentanyl 2ml Vial) 100 mcg STK-MED ONCE .ROUTE ; Start at 07:22; Stop 12/09/16 at 07:23; Status DC Dexamethasone Sodium Phosphate (Decadron) 20 mg STK-MED ONCE .ROUTE ; Start at 08:03; Stop 12/09/16 at 08:04; Status DC Sevoflurane (Ultane) 30 ml STK-MED ONCE IH ; Start 12/09/16 at 08:03; Stop 12/09 at 08:04; Status DC Ondansetron HCl (Zofran) 4 mg STK-MED ONCE .ROUTE ; Start 12/09/16 at 08:23; Stop 12/09/16 at 08:24; Status DC Active Scripts Active Hydrocodone-Apap 5-325 (Hydrocodone Bit/Acetaminophen) 1 Each Tablet 1 Tab PO PRN Q4HRS PRN Eliquis (Apixaban) 5 Mg Tablet 5 Mg PO BID 30 Days Eliquis (Apixaban) 5 Mg Tablet 10 Mg PO BID 7 Days Vitals/I & O Vital Sign - Last 24 Hours 12/09/16 12/09/16 12/09/16 12/09/16 11:00 15:00 19:00 20:00 Temp 97.8 97.6 96.4 97.8 97.6 96.4 Pulse 76 81 78 Resp 20 20 18 B/P (MAP) 119/80 (93) 111/67 (82) 111/63 (79) Pulse Ox 94 94 93 O2 Delivery Room Air Room Air Room Air Room Air 12/09/16 12/10/16 12/10/16 23:00 03:00 07:00 Temp 96.3 96.4 96.7 96.3 96.4 96.7 Pulse 77 63 65 Resp 18 18 17 B/P (MAP) 105/67 (80) 105/67 (80) 105/59 (74) Pulse Ox 91 95 92 O2 Delivery Room Air Room Air Room Air Intake and Output 12/09/16 12/09/16 12/10/16 15:00 23:00 07:00 Intake Total 250 ml 450 ml Output Total 0 ml Balance 250 ml 450 ml KASSANDRA BURNETT MD Dec 10, 2016 10:23
[2016-12-10] MEDS ORDERED: SALIVA STIMULANT AGENT 44ML SPRAY BOTTLE. PO PRN (10:30)
[2016-12-10] MEDS ORDERED: IV NORMAL SALINE 1000ML BAG 1,000 ML IV ONE (10:30)
--- NOTE | 2016-12-10 10:50 | PDOC ---
SUBJECTIVE ROS CKD III Doign well, no new complaints, For PCN later today CVS: no Orthopnea, no CP RESP: no SOB, no RASMUSSEN GI: no Nausea, no Vomiting : n Dysuria, on Urgency OBJECTIVE Vital Signs Vital Signs Date Time Temp Pulse Resp B/P (MAP) Pulse Ox O2 Delivery O2 Flow Rate FiO2 12/10/16 08:00 Room Air 2.0 12/10/16 07:00 96.7 65 17 105/59 (74) 92 96.7 I & 0 Intake and Output 12/10/16 06:59 Intake Total 700 ml Output Total 0 ml Balance 700 ml Intake Oral 400 ml IV Total 300 ml Output Urine Total 0 ml # Voids 5 PHYSICAL EXAM Physical Exam General Appearance: Awake Alert Oriented x 3 In no Distress Eyes: VIsion Unchanged Conjunctiva Normal EN: No EN Drainage Mucous Memb. moist Neck: no JVD no JVP Supple no Thyromegaly CVS: S1 S2 ? soft Murmur No Gallop No Rub no Edema Resp: no Rales no Rhonchi no Acc. Muscle use GI: BS +ve NO Bruit Non Tender Non Distended : no CVA tenderness; no Suprapubic Tenderness Assessment & Plan ^ed Creat - cannot r/o element of Obstructive UROPathy. Creat is much better this am off of IVF ? CKD III - Pt claims that she has been told that her Rt Kidney is non- functional - ? new baseline in that setting. ? Plans for Rt Nephrectomy as the pt reports ? UTI with Hematuria - org not isolated; Abx per ID h/o Kidney stones - currently asymptomatic - Cysto showed Severe right mid- ureteral strictures-unable to pass anything through strictured area so right PCN tube today then Nephrectomy contemplated ? Paraproteinemia - suspect dueto febrile illness. will check PEPs for completion sake once Urological issues have resolved since Recent cysto may worsen blood in Urine and affect PEP results Discussed Plan of Care and prognosis etc. at length with pt COMMENT/RELEVANT DATA Meds Current Medications Medications (Trade) Dose Ordered Sig/Maile Start Time Stop Time Status Last Admin Dose Admin Acetaminophen (Tylenol) 650 mg PRN Q6HRS PRN 12/07/16 12:30 12/08/16 23:20 650 MG Acetaminophen/ Hydrocodone Bitart (Lortab 5/325) 1 tab PRN Q4HRS PRN 12/07/16 08:45 12/08/16 06:30 1 TAB Apixaban (Eliquis) 5 mg BID 12/07/16 09:00 12/08/16 12:28 DC 12/08/16 09:22 5 MG Artificial Tears (Artificial Tears) 1 drop PRN Q15MIN PRN 12/07/16 08:30 12/07/16 12:11 1 DROP Ciprofloxacin (Ciloxan Ophth) 1 drop QID 12/07/16 09:00 12/10/16 08:56 1 DROP Dexamethasone Sodium Phosphate (Decadron) 20 mg STK-MED ONCE 12/09/16 08:03 12/09/16 08:04 DC Diphenhydramine HCl (Benadryl) 25 mg 1X ONCE 12/07/16 03:00 12/07/16 03:01 DC 12/07/16 02:42 25 MG Fentanyl Citrate (Fentanyl 2ml Vial) 100 mcg STK-MED ONCE 12/09/16 07:22 12/09/16 07:23 DC Info (Anti-Coagulation Monitoring By Pharmacy) 1 each PRN DAILY PRN 12/07/16 08:45 Iohexol (Omnipaque 300 Mg/ml) 50 ml STK-MED ONCE 12/09/16 07:14 12/09/16 07:15 DC 12/09/16 08:12 20 ML Lidocaine HCl (Glydo (Lidocaine) Jelly) 6 maurizio STK-MED ONCE 12/09/16 07:14 12/09/16 07:15 DC 12/09/16 08:41 6 MAURIZIO Lidocaine HCl (Lidocaine Pf 2% Vial) 5 ml STK-MED ONCE 12/09/16 07:21 12/09/16 07:22 DC Meropenem 500 mg/ Sodium Chloride 50 ml @ 100 mls/hr Q6HRS 12/07/16 12:00 12/10/16 05:48 100 MLS/HR Morphine Sulfate 2 mg PRN Q2HR PRN 12/06/16 20:15 12/07/16 20:14 DC Ondansetron HCl (Zofran) 4 mg STK-MED ONCE 12/09/16 08:23 12/09/16 08:24 DC Piperacillin Sod/ Tazobactam Sod (Zosyn Per Pharmacy) 1 each PRN DAILY PRN 12/06/16 21:15 5/29/17 08:28 DC Piperacillin Sod/ Tazobactam Sod 2.25 gm/Sodium Chloride 50 ml @ 100 mls/hr Q6HRS 12/07/16 06:00 12/07/16 08:28 DC 12/07/16 05:51 100 MLS/HR Piperacillin Sod/ Tazobactam Sod 3.375 gm/Sodium Chloride 50 ml @ 100 mls/hr 1X ONCE 12/06/16 21:30 12/06/16 21:59 DC 12/06/16 21:38 100 MLS/HR Propofol 20 ml @ As Directed STK-MED ONCE 12/09/16 07:21 12/09/16 07:22 DC Ringer's Solution 1,000 ml @ 30 mls/hr Q24H 12/09/16 07:00 12/09/16 18:59 DC 12/09/16 07:00 30 MLS/HR Saliva Substitute (Biotene Moisturizing Mouth) 2 spray PRN Q15MIN PRN 12/10/16 10:30 Sevoflurane (Ultane) 30 ml STK-MED ONCE 12/09/16 08:03 12/09/16 08:04 DC Sodium Chloride 1,000 ml @ 100 mls/hr 1X ONCE 12/10/16 10:30 12/10/16 20:29 Vancomycin HCl 1 each 1X ONCE 12/08/16 21:30 12/08/16 21:30 DC Vancomycin HCl (Vanco Per Pharmacy) 1 each PRN DAILY PRN 12/06/16 21:15 12/07/16 02:28 DC 12/07/16 02:17 1 EACH Vancomycin HCl 1.5 gm/Sodium Chloride 500 ml @ 250 mls/hr Q24H 12/07/16 22:00 12/07/16 22:00 DC Vancomycin HCl 2 gm/Sodium Chloride 500 ml @ 250 mls/hr 1X ONCE 12/06/16 22:00 12/07/16 02:23 DC 12/06/16 22:00 250 MLS/HR Lab Laboratory Tests Test 12/09/16 20:10 Prothrombin Time 14.1 SEC (11.7-14.0) Prothromb Time International Ratio 1.2 (0.8-1.1) SHAILESH ALANIS MD Dec 10, 2016 10:50
--- NOTE | 2016-12-10 11:38 | PDOC ---
Infectious Disease Note Subjective Subjective Better overall. Eyes better Await surgery ROS ROS GEN: Denies fevers, chills, sweats HEENT: Denies blurred vision, sore throat CV: Denies chest pain RESP: Denies shortness of air, cough GI: Denies n/v/d NEURO: Denies confusion, dizziness MSK: Denies weakness, joint pain/swelling Vital Sign Vital Signs Vital Signs Date Time Temp Pulse Resp B/P (MAP) Pulse Ox O2 Delivery O2 Flow Rate FiO2 12/10/16 11:00 96.1 66 17 136/76 (96) 92 Room Air 96.1 12/10/16 08:00 2.0 Physical Exam PHYSICAL EXAM GENERAL: NAD, Alert HEENT: PERRL,nml conj OC/OP -clear NECK: Supple, no JVD, no LN LUNGS: Clear HEART: S1S2, no gallop, no murmur ABD: Soft, NT, no organomegaly, no rebound, obese EXT: No edema, no cyanosis STAMP MAKER: Alert, oriented x 3, no focal neurologic deficit SKIN: No rash IV: ok Labs Lab Laboratory Tests Test 12/09/16 20:10 Prothrombin Time 14.1 SEC (11.7-14.0) Prothromb Time International Ratio 1.2 (0.8-1.1) Micro 1. There is severe right hydronephrosis and moderate right hydroureter, 4 calculi in the mid to distal right ureter. There are right renal calculi. 2. There is left upper lobe lung infiltrate. 3. Similar to 2014 exam, there is fairly diffuse hazy density of the central and left mesenteric fat with interspersed nonspecific nodes including enlarged node on the left. Etiology is uncertain. Electronically signed by: Fabricio Vasquez MD (12/06/2016 7:59 PM) Objective Assessment Fever - better Hydronephrosis/ureter on right. Needs perc or nephrectomy - d/w Dr. 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
[2016-12-10] MEDS ORDERED: LIDOCAINE 1% / SOD BICARB 8.4% 20 ML VIAL. IJ ONE ×2 (15:11→15:30)
[2016-12-10] MEDS ORDERED: fentaNYL PF VIAL 100 MCG/2 ML VIAL ONE (15:14)
[2016-12-10] MEDS ORDERED: MIDAZOLAM HCL/PF 2 MG/2 ML VIAL. ONE (15:14)
[2016-12-10] MEDS ORDERED: MIDAZOLAM HCL/PF 2 MG/2 ML VIAL. IV ONE (15:30)
[2016-12-10] MEDS ORDERED: fentaNYL PF VIAL 100 MCG/2 ML VIAL IV ONE (15:30)
--- NOTE | 2016-12-10 15:51 | PDOC ---
MODERATE SEDATION ASSESSMENT RISKS/ALTERNATIVES Risks/Alternatives Risks and alternatives of this type of sedation and procedure discussed with: RISK/ALTERNATIVES: Patient H & P ON CHART H & P H & P on chart and reviewed for co-morbid conditions and appropriate labs. H&P ON CHART: Yes STATUS PREG STATUS ASSESSED: N/A MEDS/ALLERGIES REVIEWED Meds/Allergies Reviewed Medications and Allergies including time and route of recently administered narcotics and sedatives. MEDS/ALLERGIES REVIEWED: Yes ASA RATING ASA RATING: II AIRWAY ASSESSMENT Airway Assessment Airway patency, oral function limitations, presence of caps, crowns, dentures, partials, and ability to extend neck assessed. AIRWAY ASSESSMENT: Yes MALLAMPATI SCORE MALLAMPATI SCORE: III PRE-SEDATION ASSESSMENT PRE-SEDATION ASSESSMENT: Yes SHIRA VINCENT MD Dec 10, 2016 15:51
--- NOTE | 2016-12-10 15:59 | PDOC ---
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 Failed retrograde stent placement by Urology. Post-Procedure Diagnosis Post-Procedure Diagnosis Same Procedure Performed Procedure Performed CT guided right PCN drain insertion Type of Anesthesia Type of Anesthesia Local + Mod sedation Estimated Blood Loss EBL: Trace Specimens Specimans Small sample of straw-slightly hazy urine from massively dilated rt renal collecting system sent to [facility] for C&S. Drain/Tubes Drains/Tubes 10F locking pigtail right PCN drain---to gravity drainage. Condition of Patient Condition of Patient Stable. No apparent complication. Disposition Disposition From IR/CT return to [facility]. F/u with HIMS, ID and Urology. Full report to follow. SHIRA VINCENT MD Dec 10, 2016 15:59
--- NOTE | 2016-12-10 16:22 | RAD ---
CT-guided insertion of right percutaneous nephrostomy drain Indication: 61-year-old female with UTI and with chronically obstructed, massively hydronephrotic, essentially nonfunctioning right kidney, with a very minimal rim of residual renal cortex. Unsuccessful attempted retrograde right internal ureteral stent placement by urology, due to an impacted mid ureteral stone. Image guided percutaneous nephrostomy drain insertion has been requested. Anesthesia: 40 minutes moderate sedation was provided utilizing a total of 2 mg Versed and 100 mcg fentanyl, IV. The patient was appropriately monitored by a qualified independent observer throughout the time of moderate sedation. Antibiotic: The patient was receiving scheduled IV antibiotics. No additional prophylactic antibiotic was considered indicated. RS Compliance Statement: One or more of the following individualized dose reduction techniques was/were utilized for this CT examination or procedure: 1. Automated exposure control. 2. Adjustment of mA and/or kV according to patient size. 3. Iterative reconstruction technique. Procedure: Informed consent was obtained from the patient. She was placed prone on the CT scanner. Preliminary noncontrast CT images confirmed the previously described massively hydronephrotic right kidney. A right posterolateral skin site suitable for CT-guided nephrostomy drain insertion was selected and marked. That area was prepped and draped in the usual sterile fashion. Moderate sedation was provided with IV Versed and fentanyl. Using aseptic technique, local anesthesia, and CT guidance, a 19-gauge biopsy guide needle was successfully introduced through minimal residual renal parenchyma into the massively dilated right renal collecting system. A small sample of straw-slightly hazy urine was aspirated, and was submitted to microbiology for culture and sensitivity. The needle was then removed over a 0.035 inch guidewire. The percutaneous tract was dilated and a 10 Romanian locking pigtail right percutaneous nephrostomy drain was easily introduced. Completion CT images documented satisfactory position of the nephrostomy tube, which was then connected to gravity drainage, and was secured at the skin exit site utilizing suture and sterile dressing. Patient tolerated the procedure well without apparent complication. Impression: Successful, uneventful CT-guided insertion of a 10 Romanian locking pigtail right percutaneous nephrostomy drain, as described.
[2016-12-10] MEDS: HYDROcodone/APAP 5/325MG 1 TAB TABLET PO PRN (20:10)
[2016-12-11 03:00] VITALS: BP 95/52
[2016-12-11] MEDS: HYDROcodone/APAP 5/325MG 1 TAB TABLET PO PRN ×2 (05:40→21:40)
[2016-12-11] MEDS: MEROPENEM 500 MG in IV NORMAL SALINE 50ML 50 ML IV SCH ×3 (05:40→18:00)
[2016-12-11] MEDS ORDERED: diphenhydrAMINE HCL 25 MG CAPSULE PO PRN (06:00)
[2016-12-11 07:00] VITALS: BP 108/66
[2016-12-11] MEDS: CIPROFLOXACIN 0.3% OPHTH SOLUTION 5ML BOTTLE. OU SCH ×4 (09:00→21:44)
[2016-12-11 11:00] VITALS: BP 100/65
--- NOTE | 2016-12-11 11:27 | PDOC ---
SUBJECTIVE ROS Doing OK overall OBJECTIVE Vital Signs Vital Signs Date Time Temp Pulse Resp B/P (MAP) Pulse Ox O2 Delivery O2 Flow Rate FiO2 12/11/16 03:00 97.5 75 18 95/52 (66) 90 Room Air 97.5 12/10/16 15:55 2.0 I & 0 Intake and Output 12/11/16 07:00 Intake Total 450 ml Output Total 1400 ml Balance -950 ml Intake Oral 350 ml IV Total 100 ml Output Urine Total 1200 ml Drainage Total 200 ml PHYSICAL EXAM Physical Exam General Appearance: Awake: Alert Oriented x 3 Neck: No JVD or JVP Chest: CTA Donnell Heart: S1 S2 Abdomen - Soft NTND Extremities - No Edema DIAGNOSIS/ASSESSMENT Assessment & Plan ^ed Creat - cannot r/o element of Obstructive UROPathy. recheck Creat after PCN ? CKD III - Pt claims that she has been told that her Rt Kidney is non- functional - ? new baseline in that setting. ? Plans for Rt Nephrectomy as the pt reports h/o Kidney stones - currently asymptomatic - Cysto showed Severe right mid- ureteral strictures-unable to pass anything through strictured area so now s/p right PCN tube ? Paraproteinemia - suspect dueto febrile illness. will check PEPs for completion sake once Urological issues have resolved since Recent cysto may worsen blood in Urine and affect PEP results Discussed Plan of Care and prognosis etc. at length with pt Problems: COMMENT/RELEVANT DATA Meds Current Medications Medications (Trade) Dose Ordered Sig/Maile Start Time Stop Time Status Last Admin Dose Admin Acetaminophen (Tylenol) 650 mg PRN Q6HRS PRN 12/07/16 12:30 12/08/16 23:20 650 MG Acetaminophen/ Hydrocodone Bitart (Lortab 5/325) 1 tab PRN Q4HRS PRN 12/07/16 08:45 12/11/16 05:40 1 TAB Apixaban (Eliquis) 5 mg BID 12/07/16 09:00 12/08/16 12:28 DC 12/08/16 09:22 5 MG Artificial Tears (Artificial Tears) 1 drop PRN Q15MIN PRN 12/07/16 08:30 12/07/16 12:11 1 DROP Ciprofloxacin (Ciloxan Ophth) 1 drop QID 12/07/16 09:00 12/11/16 09:00 1 DROP Dexamethasone Sodium Phosphate (Decadron) 20 mg STK-MED ONCE 12/09/16 08:03 12/09/16 08:04 DC Diphenhydramine HCl (Benadryl) 25 mg PRN Q6HRS PRN 12/11/16 06:00 12/11/16 06:24 25 MG Fentanyl Citrate (Fentanyl 2ml Vial) 100 mcg 1X ONCE 12/10/16 15:30 12/10/16 15:39 DC 12/10/16 15:55 100 MCG Info (Anti-Coagulation Monitoring By Pharmacy) 1 each PRN DAILY PRN 12/07/16 08:45 Iohexol (Omnipaque 300 Mg/ml) 50 ml STK-MED ONCE 12/09/16 07:14 12/09/16 07:15 DC 12/09/16 08:12 20 ML Lidocaine HCl (Glydo (Lidocaine) Jelly) 6 maurizio STK-MED ONCE 12/09/16 07:14 12/09/16 07:15 DC 12/09/16 08:41 6 MAURIZIO Lidocaine HCl (Lidocaine Pf 2% Vial) 5 ml STK-MED ONCE 12/09/16 07:21 12/09/16 07:22 DC Lidocaine/Sodium Bicarbonate (Buffered Lidocaine 1%) 20 ml 1X ONCE 12/10/16 15:30 12/10/16 15:39 DC 12/10/16 15:53 10 ML Meropenem 500 mg/ Sodium Chloride 50 ml @ 100 mls/hr Q6HRS 12/07/16 12:00 12/11/16 05:40 100 MLS/HR Midazolam HCl (Versed) 2 mg 1X ONCE 12/10/16 15:30 12/10/16 15:39 DC 12/10/16 15:56 2 MG Morphine Sulfate 2 mg PRN Q2HR PRN 12/06/16 20:15 12/07/16 20:14 DC Ondansetron HCl (Zofran) 4 mg STK-MED ONCE 12/09/16 08:23 12/09/16 08:24 DC Piperacillin Sod/ Tazobactam Sod (Zosyn Per Pharmacy) 1 each PRN DAILY PRN 12/06/16 21:15 12/07/16 08:28 DC Piperacillin Sod/ Tazobactam Sod 2.25 gm/Sodium Chloride 50 ml @ 100 mls/hr Q6HRS 12/07/16 06:00 12/07/16 08:28 DC 12/07/16 05:51 100 MLS/HR Piperacillin Sod/ Tazobactam Sod 3.375 gm/Sodium Chloride 50 ml @ 100 mls/hr 1X ONCE 12/06/16 21:30 12/06/16 21:59 DC 12/06/16 21:38 100 MLS/HR Propofol 20 ml @ As Directed STK-MED ONCE 12/09/16 07:21 12/09/16 07:22 DC Ringer's Solution 1,000 ml @ 30 mls/hr Q24H 12/09/16 07:00 12/09/16 18:59 DC 12/09/16 07:00 30 MLS/HR Saliva Substitute (Biotene Moisturizing Mouth) 2 spray PRN Q15MIN PRN 12/10/16 10:30 Sevoflurane (Ultane) 30 ml STK-MED ONCE 12/09/16 08:03 12/09/16 08:04 DC Sodium Chloride 1,000 ml @ 100 mls/hr 1X ONCE 12/10/16 10:30 12/10/16 20:29 DC 12/10/16 12:06 100 MLS/HR Vancomycin HCl 1 each 1X ONCE 12/08/16 21:30 12/08/16 21:30 DC Vancomycin HCl (Vanco Per Pharmacy) 1 each PRN DAILY PRN 12/06/16 21:15 12/07/16 02:28 DC 12/07/16 02:17 1 EACH Vancomycin HCl 1.5 gm/Sodium Chloride 500 ml @ 250 mls/hr Q24H 12/07/16 22:00 12/07/16 22:00 DC Vancomycin HCl 2 gm/Sodium Chloride 500 ml @ 250 mls/hr 1X ONCE 12/06/16 22:00 12/07/16 02:23 DC 12/06/16 22:00 250 MLS/HR SHAILESH ALANIS MD Dec 11, 2016 11:27
--- NOTE | 2016-12-11 11:41 | PDOC ---
Infectious Disease Note Subjective Subjective Little sore drain site Hoping to go home soon ROS ROS GEN: Denies fevers, chills, sweats HEENT: Denies blurred vision, sore throat CV: Denies chest pain RESP: Denies shortness of air, cough GI: Denies n/v/d NEURO: Denies confusion, dizziness MSK: Denies weakness, joint pain/swelling Vital Sign Vital Signs Vital Signs Date Time Temp Pulse Resp B/P (MAP) Pulse Ox O2 Delivery O2 Flow Rate FiO2 12/11/16 03:00 97.5 75 18 95/52 (66) 90 Room Air 97.5 12/10/16 15:55 2.0 Physical Exam PHYSICAL EXAM GENERAL: Propped up in bed, relaxed appearance, smiling LUNGS: Clear HEART: S1S2, no gallop, no murmur ABD: Soft, NT, BS present, right nephrostomy tube intact EXT: No edema, no cyanosis 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 s/p perc nephrostomy tube, 12/10. UTI - POA. cx neg Vanc reaction - redmans Leukocytosis, better Conjunctivitis - better Left infiltrate H/o MRSA and ESBL H/o BMT off immunosuppressives Plan Plan of Care Cont Meropenem - clinically looks and feels better Cont Cipro eye drops for now F/u labs/UC from 12/10 Vanc should be ok if needed only run at a slower rate Attending Co-Sign The patient was seen and interviewed as well as examined at the bedside. The chart was reviewed. The case was discussed. Agree with the plan of care. LASHELL RDZ APRN Dec 11, 2016 11:40 IRMA ALANIS MD Dec 11, 2016 15:19
[2016-12-11 15:00] VITALS: BP 116/64
[2016-12-11 15:28] LABS: KAPPA LAMBDA RATIO 1.12 (0.26-1.65)
--- NOTE | 2016-12-11 16:41 | PDOC ---
PROGRESS NOTES Chief Complaint Chief Complaint UTI hydronephrosis, obst. uropathy on right sepsis CKD 3 dehydration weakness, aq. obesity, BMI 35 History of Present Illness History of Present Illness Pt seen and examined DW RN extensively Uro eval, obs right kidney w/ UTI unable to pass stent for stricture, unable to clear hydro,. Nephrostomy functioning will then Dr. Rick Brennan at [facility]. y and f/u in his clinic, Vitals Vitals Vital Signs Date Time Temp Pulse Resp B/P (MAP) Pulse Ox O2 Delivery O2 Flow Rate FiO2 12/11/16 11:00 98.1 80 17 100/65 (77) 90 Room Air 98.1 12/11/16 08:00 2.0 Physical Exam General: Alert, Oriented X3, Cooperative, No acute distress Heart: Regular rate, No murmurs Lungs: Crackles, Other Abdomen: Normal bowel sounds (tender lower, not radiating, no guarding), Soft Extremities: No clubbing, No cyanosis, No edema Skin: No breakdown, No significant lesion Review of Systems Review of Systems co pain co weakness Assessment and Plan Assessmemt and Plan Problems Medical Problems: (1) Abdominal pain Status: Acute (2) Pneumonia Status: Acute (3) UTI (lower urinary tract infection) Status: Acute UTI hydronephrosis, obst. uropathy on right sepsis CKD 3 dehydration weakness, aq. obesity, BMI 35 Plan Cont nephrostomy care PTOT Antibx Recheck labs Home meds DC when ok with consultants Problems: Comment Review of Relevant I have reviewed the following items keegan (where applicable) has been applied. Labs Laboratory Tests Test 12/09/16 20:10 Prothrombin Time 14.1 SEC (11.7-14.0) Prothromb Time International Ratio 1.2 (0.8-1.1) Microbiology 12/10/16 Urine Culture - Preliminary, Resulted 12/10/16 Urine Culture Result 1 (TRENA) - Preliminary, Resulted Medications Current Medications Sodium Chloride 500 ml @ 500 mls/hr 1X ONCE IV Last administered on 19:52; Start 12/06/16 at 19:45; Stop 12/06/16 at 20:44; Status DC Ondansetron HCl (Zofran) 4 mg 1X ONCE IV Last administered on 12/06/16 19:51 ; Start 12/06/16 at 19:45; Stop 12/06/16 at 19:46; Status DC Acetaminophen (Tylenol) 650 mg 1X ONCE PO Last administered on 12/06/16 19:51 ; Start 12/06/16 at 19:45; Stop 12/06/16 at 19:46; Status DC Ondansetron HCl (Zofran) 4 mg PRN Q8HRS PRN IV NAUSEA/VOMITING; Start 12/06/16 at 20:15; Stop 12/07/16 at 20:14; Status DC Morphine Sulfate 2 mg PRN Q2HR PRN IV PAIN; Start 12/06/16 at 20:15; Stop 12/07 at 20:14; Status DC Sodium Chloride 1,000 ml @ 125 mls/hr Q8H IV Last administered on 12/07/16 23 :10; Start 12/06/16 at 20:13; Stop 12/07/16 at 20:12; Status DC Vancomycin HCl (Vanco Per Pharmacy) 1 each PRN DAILY PRN MC SEE COMMENTS Last administered on 12/07/16 02:17; Start 12/06/16 at 21:15; Stop 12/07/16 at 02:28 ; Status DC Piperacillin Sod/ Tazobactam Sod (Zosyn Per Pharmacy) 1 each PRN DAILY PRN MC SEE COMMENTS; Start 12/06/16 at 21:15; Stop 12/07/16 at 08:28; Status DC Vancomycin HCl 2 gm/Sodium Chloride 500 ml @ 250 mls/hr 1X ONCE IV Last administered on 12/06/16 22:00; Start 12/06/16 at 22:00; Stop 12/07/16 at 02:23 ; Status DC Piperacillin Sod/ Tazobactam Sod 3.375 gm/Sodium Chloride 50 ml @ 100 mls/hr 1X ONCE IV Last administered on 12/06/16 21:38; Start 12/06/16 at 21:30; Stop 12/06/16 at 21:59; Status DC Piperacillin Sod/ Tazobactam Sod 2.25 gm/Sodium Chloride 50 ml @ 100 mls/hr Q6HRS IV Last administered on 12/07/16 05:51; Start 12/07/16 at 06:00; Stop at 08:28; Status DC Vancomycin HCl 1.5 gm/Sodium Chloride 500 ml @ 250 mls/hr Q24H IV ; Start 12/07 at 22:00; Stop 12/07/16 at 22:00; Status DC Vancomycin HCl 1 each 1X ONCE MC ; Start 12/08/16 at 21:30; Stop 12/08/16 at 21 :30; Status DC Diphenhydramine HCl (Benadryl) 25 mg 1X ONCE IVP Last administered on 02:42; Start 12/07/16 at 03:00; Stop 12/07/16 at 03:01; Status DC Artificial Tears (Artificial Tears) 1 drop PRN Q15MIN PRN OU DRY EYE Last administered on 12/07/16 12:11; Start 12/07/16 at 08:30 Meropenem 500 mg/ Sodium Chloride 50 ml @ 100 mls/hr Q6HRS IV Last administered on 12/11/16 13:37; Start 12/07/16 at 12:00 Ciprofloxacin (Ciloxan Ophth) 1 drop QID OU Last administered on 12/11/16 13:37 ; Start 12/07/16 at 09:00 Apixaban (Eliquis) 5 mg BID PO Last administered on 12/08/16 09:22; Start at 09:00; Stop 12/08/16 at 12:28; Status DC Acetaminophen/ Hydrocodone Bitart (Lortab 5/325) 1 tab PRN Q4HRS PRN PO PAIN Last administered on 12/11/16 05:40; Start 12/07/16 at 08:45 Info (Anti-Coagulation Monitoring By Pharmacy) 1 each PRN DAILY PRN MC SEE COMMENTS Last administered on 12/11/16 14:42; Start 12/07/16 at 08:45 Acetaminophen (Tylenol) 650 mg PRN Q6HRS PRN PO pain or fever Last administered on 12/08/16 23:20; Start 12/07/16 at 12:30 Ondansetron HCl (Zofran) 4 mg PRN Q8HRS PRN IV NAUSEA/VOMITING Last administered on 12/08/16 17:27; Start 12/08/16 at 08:45 Ondansetron HCl (Zofran) 4 mg PRN Q6HRS PRN IV NAUSEA/VOMITING; Start 12/09/16 at 07:00; Stop 12/10/16 at 06:59; Status DC Fentanyl Citrate (Fentanyl 2ml Vial) 25 mcg PRN Q5MIN PRN IV MILD PAIN; Start 12/09/16 at 07:00; Stop 12/10/16 at 06:59; Status DC Fentanyl Citrate (Fentanyl 2ml Vial) 50 mcg PRN Q5MIN PRN IV MODERATE PAIN; Start 12/09/16 at 07:00; Stop 12/10/16 at 06:59; Status DC Ringer's Solution 1,000 ml @ 30 mls/hr Q24H IV Last administered on 12/09/16 07:00; Start 12/09/16 at 07:00; Stop 12/09/16 at 18:59; Status DC Lidocaine HCl 2 ml PRN 1X PRN ID PRIOR TO IV START; Start 12/09/16 at 07:00; Stop 12/10/16 at 06:59; Status DC Lidocaine HCl (Glydo (Lidocaine) Jelly) 6 maurizio STK-MED ONCE .ROUTE Last administered on 12/09/16 08:41; Start 12/09/16 at 07:13; Stop 12/09/16 at 07:14 ; Status DC Iohexol (Omnipaque 300 Mg/ml) 50 ml STK-MED ONCE .ROUTE Last administered on 08:12; Start 12/09/16 at 07:14; Stop 12/09/16 at 07:15; Status DC Lidocaine HCl (Glydo (Lidocaine) Jelly) 6 maurizio STK-MED ONCE .ROUTE Last administered on 12/09/16 08:41; Start 12/09/16 at 07:14; Stop 12/09/16 at 07:15 ; Status DC Lidocaine HCl (Lidocaine Pf 2% Vial) 5 ml STK-MED ONCE .ROUTE ; Start 12/09/16 at 07:21; Stop 12/09/16 at 07:22; Status DC Propofol 20 ml @ As Directed STK-MED ONCE IV ; Start 12/09/16 at 07:21; Stop at 07:22; Status DC Fentanyl Citrate (Fentanyl 2ml Vial) 100 mcg STK-MED ONCE .ROUTE ; Start at 07:22; Stop 12/09/16 at 07:23; Status DC Dexamethasone Sodium Phosphate (Decadron) 20 mg STK-MED ONCE .ROUTE ; Start at 08:03; Stop 12/09/16 at 08:04; Status DC Sevoflurane (Ultane) 30 ml STK-MED ONCE IH ; Start 12/09/16 at 08:03; Stop 12/09 at 08:04; Status DC Ondansetron HCl (Zofran) 4 mg STK-MED ONCE .ROUTE ; Start 12/09/16 at 08:23; Stop 12/09/16 at 08:24; Status DC Saliva Substitute (Biotene Moisturizing Mouth) 2 spray PRN Q15MIN PRN PO DRY MOUTH; Start 12/10/16 at 10:30 Sodium Chloride 1,000 ml @ 100 mls/hr 1X ONCE IV Last administered on 12:06; Start 12/10/16 at 10:30; Stop 12/10/16 at 20:29; Status DC Lidocaine/Sodium Bicarbonate (Buffered Lidocaine 1%) 20 ml STK-MED ONCE IJ ; Start 12/10/16 at 15:11; Stop 12/10/16 at 15:12; Status DC Fentanyl Citrate (Fentanyl 2ml Vial) 100 mcg STK-MED ONCE .ROUTE ; Start at 15:14; Stop 12/10/16 at 15:15; Status DC Midazolam HCl (Versed) 2 mg STK-MED ONCE .ROUTE ; Start 12/10/16 at 15:14; Stop 12/10/16 at 15:15; Status DC Lidocaine/Sodium Bicarbonate (Buffered Lidocaine 1%) 20 ml 1X ONCE IJ Last administered on 12/10/16 15:53; Start 12/10/16 at 15:30; Stop 12/10/16 at 15:39; Status DC Midazolam HCl (Versed) 2 mg 1X ONCE IV Last administered on 12/10/16 15:56; Start 12/10/16 at 15:30; Stop 12/10/16 at 15:39; Status DC Fentanyl Citrate (Fentanyl 2ml Vial) 100 mcg 1X ONCE IV Last administered on 15:55; Start 12/10/16 at 15:30; Stop 12/10/16 at 15:39; Status DC Diphenhydramine HCl (Benadryl) 25 mg PRN Q6HRS PRN PO ITCHING Last administered on 12/11/16t 06:24; Start 12/11/16 at 06:00 Active Scripts Active Hydrocodone-Apap 5-325 (Hydrocodone Bit/Acetaminophen) 1 Each Tablet 1 Tab PO PRN Q4HRS PRN Eliquis (Apixaban) 5 Mg Tablet 5 Mg PO BID 30 Days Eliquis (Apixaban) 5 Mg Tablet 10 Mg PO BID 7 Days Vitals/I & O Vital Sign - Last 24 Hours 12/10/16 12/10/16 12/10/16 12/10/16 16:45 17:00 17:15 17:45 Pulse 63 62 62 63 B/P (MAP) 119/75 (90) 107/75 (86) 118/75 (89) 117/67 (84) Pulse Ox 94 93 97 O2 Delivery Room Air Room Air Room Air Room Air 12/10/16 12/10/16 12/10/16 12/10/16 18:15 19:15 20:05 20:15 Pulse 81 71 66 B/P (MAP) 98/59 (72) 91/58 (69) 105/51 (69) Pulse Ox 93 92 96 O2 Delivery Room Air Room Air Room Air Room Air 12/10/16 12/11/16 12/11/16 12/11/16 23:00 03:00 07:00 08:00 Temp 97.5 97.5 98.1 97.5 97.5 98.1 Pulse 70 75 79 Resp 18 18 17 B/P (MAP) 99/55 (70) 95/52 (66) 108/66 (80) Pulse Ox 94 90 90 O2 Delivery Room Air Room Air Room Air Room Air O2 Flow Rate 2.0 12/11/16 11:00 Temp 98.1 98.1 Pulse 80 Resp 17 B/P (MAP) 100/65 (77) Pulse Ox 90 O2 Delivery Room Air Intake and Output 12/10/16 12/10/16 12/11/16 15:00 23:00 07:00 Intake Total 50 ml 400 ml Output Total 600 ml 800 ml Balance 50 ml -200 ml -800 ml DARIUS RUIZ III DO Dec 11, 2016 16:41
[2016-12-11] MEDS: CIPROFLOXACIN HCL 250 MG TABLET. PO SCH (18:21)
[2016-12-11] MEDS: LINEZOLID 600 MG TABLET PO SCH (18:21)
[2016-12-11 19:00] VITALS: BP 126/72
[2016-12-11] MEDS: POLYVINYL ALCOHOL 1.4% OPHTH SOLUTION 15ML BOTTLE. OU PRN (21:41)
[2016-12-11 23:00] VITALS: BP 123/70
[2016-12-12 03:08] VITALS: BP 106/71
[2016-12-12 04:20] LABS: CALCIUM 9.9 mg/dL (8.5-10.1); CREATININE 1.3 mg/dL (0.6-1.0); GFR 41.5; POTASSIUM 4.1 mmol/L (3.5-5.1)
[2016-12-12 07:00] VITALS: BP 112/74
[2016-12-12] MEDS: CIPROFLOXACIN 0.3% OPHTH SOLUTION 5ML BOTTLE. OU SCH ×2 (09:12→11:18)
[2016-12-12] MEDS: CIPROFLOXACIN HCL 250 MG TABLET. PO SCH (09:12)
[2016-12-12] MEDS: LINEZOLID 600 MG TABLET PO SCH (09:12)
[2016-12-12 11:00] VITALS: BP 101/67
[2016-12-12] MEDS ORDERED: APIXABAN 5 MG TABLET. PO SCH (11:30)
--- NOTE | 2016-12-12 13:03 | PDOC ---
Infectious Disease Note Subjective Subjective Feeling well, less sore ready to go home ROS ROS GEN: Denies fevers, chills, sweats CV: Denies chest pain RESP: Denies shortness of air, cough GI: Denies n/v/d Vital Sign Vital Signs Vital Signs Date Time Temp Pulse Resp B/P (MAP) Pulse Ox O2 Delivery O2 Flow Rate FiO2 12/12/16 11:00 97.9 77 20 101/67 (78) 93 Room Air 97.9 12/11/16 08:00 2.0 Physical Exam PHYSICAL EXAM GENERAL: Propped up in bed, relaxed appearance, smiling LUNGS: Clear HEART: S1S2, no gallop, no murmur ABD: Soft, NT, BS present, right nephrostomy tube intact EXT: No edema, no cyanosis 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 s/p perc nephrostomy tube, 12/10. UTI - POA. cx neg Vanc reaction - redmans Leukocytosis, better Conjunctivitis - better Left infiltrate H/o MRSA and ESBL H/o BMT off immunosuppressives Plan Plan of Care Cipro and Zyvox UC negative Dr. Dexter Alanis to see patient before discharging Attending Co-Sign The patient was seen and interviewed as well as examined at the bedside. The chart was reviewed. The case was discussed. Agree with the plan of care. LASHELL RDZ APRN Dec 12, 2016 13:03 IRMA ALANIS MD Dec 12, 2016 13:10
[2016-12-12] MEDS ORDERED: APIX5TAB PO (13:43)
[2016-12-12] MEDS ORDERED: CIPR500T94 PO (13:45)
[2016-12-12 14:55] VITALS: BP 113/81
--- NOTE | 2016-12-12 21:16 | DS ---
DATE OF DISCHARGE: 12/12/2016 ADMISSION DIAGNOSES: Urinary tract infection and several renal calculi. DISCHARGE DIAGNOSIS: Status post nephrostomy tube, on chronic anticoagulation. HOSPITAL COURSE: The patient is a pleasant 61-year-old female who presented with UTI and multiple stones. She was admitted. We consulted Urology. They tried to put a stent around the stone ____ kidney drain, but that did not work. They had to put a nephrostomy tube. Now, she is doing better. We plan to discharge with close outpatient followup. The patient was seen and examined this morning. DISPOSITION: Home. ACTIVITY: As tolerated. DIET: Low sodium. MEDICATIONS: Please see the MRAD. TOTAL TIME ON DISCHARGE: 37 minutes. DARIUS RUIZ DO DR: MERON/kranthi JOB#: [id number] / [id number]
[2016-12-15 11:21] LABS: ALPHA 1 0.5 g/dL (0.0-0.4); ALPHA 2 0.8 g/dL (0.4-1.0); BETA 0.9 g/dL (0.7-1.3); GAMMA 1.5 g/dL (0.4-1.8); M-SPIKE Not Observed g/dL (Not Observed); PROTEIN TOTAL 6.5 g/dL (6.0-8.5)
[2016-12-16 16:21] LABS: IMMUNOGLOBULIN A 192 mg/dL (87-352); IMMUNOGLOBULIN G 1378 mg/dL (700-1600); IMMUNOGLOBULIN M 55 mg/dL (26-217)
== END 2016-12-12 15:30 | disposition home or self-care (01) | DRG 871 ==
LOC: ER 19:08 → 5 NORTH 20:12 → OBSVTOIN 12-08 14:00
PROVIDERS: ADMIT Internal Medicine; ATTEND Internal Medicine
PROC: 0T9030Z Drainage of Right Kidney with Drainage Device, Percutaneous Approach (ICD-10-PCS; 2016-12-09)
PROC: BT1D1ZZ Fluoroscopy of Right Kidney, Ureter and Bladder using Low Osmolar Contrast (ICD-10-PCS; principal; 2016-12-09 08:00)
DX: A41.9 Sepsis, unspecified organism (principal); N17.0 Acute kidney failure with tubular necrosis; J69.0 Pneumonitis due to inhalation of food and vomit; N39.0 Urinary tract infection, site not specified; N13.2 Hydronephrosis with renal and ureteral calculous obstruction; Z94.81 Bone marrow transplant status; H10.9 Unspecified conjunctivitis; E78.00 Pure hypercholesterolemia, unspecified; E78.5 Hyperlipidemia, unspecified; I12.9 Hypertensive chronic kidney disease with stage 1 through stage 4 chronic kidney disease, or unspecified chronic kidney disease; I25.10 Atherosclerotic heart disease of native coronary artery without angina pectoris; K59.00 Constipation, unspecified; N18.3 Chronic kidney disease, stage 3 (moderate); R32 Unspecified urinary incontinence; E66.9 Obesity, unspecified; K43.9 Ventral hernia without obstruction or gangrene; E86.0 Dehydration; Z79.01 Long term (current) use of anticoagulants; Z86.14 Personal history of Methicillin resistant Staphylococcus aureus infection; Z80.1 Family history of malignant neoplasm of trachea, bronchus and lung; Z85.6 Personal history of leukemia; Z86.73 Personal history of transient ischemic attack (TIA), and cerebral infarction without residual deficits; Z86.718 Personal history of other venous thrombosis and embolism; Z86.711 Personal history of pulmonary embolism; Z87.442 Personal history of urinary calculi; Z93.6 Other artificial openings of urinary tract status; Z95.5 Presence of coronary angioplasty implant and graft; Z83.3 Family history of diabetes mellitus; Z90.49 Acquired absence of other specified parts of digestive tract; Z79.899 Other long term (current) drug therapy; Z68.34 Body mass index [BMI] 34.0-34.9, adult; Z88.5 Allergy status to narcotic agent; Z88.8 Allergy status to other drugs, medicaments and biological substances; Z91.041 Radiographic dye allergy status; Z85.9 Personal history of malignant neoplasm, unspecified; Z90.710 Acquired absence of both cervix and uterus
CPT/HCPCS: 36415; 50432; 74176; 74420; 80048; 80053; 81001; 83520; 83605; 83690; 84165; 84484; 85007; 85027; 85610; 86334; 87086; 96361; 96374; A4215; C1729; C1769; C1892; C1894; G0378; G0379; J1100; J1200; J2185; J2250; J2405; J2543; J2704; J3010; J3370; J7030; J7040; J7120; Q0163; Q9967; 99285-25

== ENCOUNTER → 2016-12-29 | Outpatient (CLI) | payer MEDICARE ==
[2016-12-12 14:55] VITALS: BP 113/81
[~2016-12-29] MED LIST changes: -HYDR-2666 PO; +HYDR-2758 PO
--- NOTE | 2016-12-29 14:34 | KCIC ---
Bone mineral density exam History: Postmenopausal, history of leukemia Comparison: None Findings: Bone mineral density examination utilizing DEXA was performed. Left hip bone mineral density of 0.769 g/cm2 corresponds with a T score -1.4 and a Z score of -0.3. The bone mineral density of the lumbar spine was 0.945 g/cm2 which corresponds with a T-score of -0.9, Z score 0.7. By World Congress on Osteoporosis criteria, a T score of 0 to-1 SD is considered to be within normal limits. A T score of -1 to -2.5 SD is considered osteopenia. A T score less than -2.5 SD is considered osteoporosis Impression: 1. There is normal bone density of the lumbar spine although may be somewhat artificially elevated due to the presence of degenerative change. There is osteopenia of the left hip. Electronically signed by: Fabricio Vasquez MD (12/29/2016 2:31 PM)
== END | disposition home or self-care (01) ==
LOC: KCIC DEXA 12:52
PROVIDERS: ATTEND Family Medicine
DX: M85.88 Other specified disorders of bone density and structure, other site (principal); Z78.0 Asymptomatic menopausal state; C95.90 Leukemia, unspecified not having achieved remission
CPT/HCPCS: 77080

== ENCOUNTER 2017-07-28 09:32 | Emergency (ER) | payer MEDICARE | END 2017-07-28 10:43 | disposition home or self-care (01) | LOC: ER 10:43 | DX: H10.33 Unspecified acute conjunctivitis, bilateral (principal); Z91.041 Radiographic dye allergy status; Z88.5 Allergy status to narcotic agent; Z88.8 Allergy status to other drugs, medicaments and biological substances; Z90.49 Acquired absence of other specified parts of digestive tract; Z86.718 Personal history of other venous thrombosis and embolism; Z87.442 Personal history of urinary calculi; Z90.5 Acquired absence of kidney | CPT/HCPCS: 99283 ==

== ENCOUNTER 2017-09-13 12:48 | Emergency (ER) | payer MEDICARE ==
[2017-09-13] MEDS: IPRATRPIUM/ALBUTEROL 0.5/2.5MG 3 ML NEBU. NEB (13:29)
== END 2017-09-13 14:16 | disposition home or self-care (01) ==
LOC: ER 12:48
DX: J18.9 Pneumonia, unspecified organism (principal); Z88.5 Allergy status to narcotic agent; Z88.8 Allergy status to other drugs, medicaments and biological substances; Z91.041 Radiographic dye allergy status
CPT/HCPCS: 71046; 94640; 99284; J7620

== ENCOUNTER → 2021-09-08 | Day surgery (SDC) | payer MEDICARE ==
[~2021-09-08] VITALS: Ht 162.6 cm; Wt 83.6 kg
[~2021-09-08] MED LIST changes: +ALBU2.5V8 INH; +AMOX1TAB58 PO; +ATOR20TA58 PO; +BENZ100C PO; +CETI10TA16 PO; +CHOL10004 PO; +CIPR250T30 PO; +CYAN10002 IJ; +DOXY100T PO; -HYDR-2758 PO; +HYDR-2761 PO; -HYDR12.53 PO; +HYDR12.575 PO; +LACT1CAP19 PO; +LIDOCAINE 2% PF 5 ML VIAL. ONE; +LINE600T12 PO; +POLY10DR EACHEYE; +PROPOFOL 10 MG/ML (20ML) VIAL. IV ONE; +SIMV40TA18 PO; -SIMV40TA3 PO
[2021-09-08 13:57] VITALS: BP 137/61
--- NOTE | 2021-09-08 14:16 | PDOC4 ---
PROCEDURE Procedure Intended colonoscopy. Indication: TODD/negative EGD. Meds: per anesthesia Findings: ORIANA--soft, formed stool Inadequate prep. Procedure not done. Frank. well. IMP: TODD Inadequate prep. REC: Will have patient re-schedule with 2-day prep. DAVI VILLANUEVA MD Sep 08, 2021 14:16
[2021-09-08 14:45] VITALS: BP 117/63
== END | disposition home or self-care (01) ==
LOC: ENDOS 13:09
PROVIDERS: ATTEND Internal Medicine Gastroenterology
DX: D50.9 Iron deficiency anemia, unspecified (principal); Z53.8 Procedure and treatment not carried out for other reasons; R19.7 Diarrhea, unspecified; I25.10 Atherosclerotic heart disease of native coronary artery without angina pectoris; E78.00 Pure hypercholesterolemia, unspecified; Z87.440 Personal history of urinary (tract) infections; Z90.49 Acquired absence of other specified parts of digestive tract; Z98.890 Other specified postprocedural states; Z79.899 Other long term (current) drug therapy; Z88.8 Allergy status to other drugs, medicaments and biological substances; Z91.041 Radiographic dye allergy status
CPT/HCPCS: 45378; J2704

== ENCOUNTER → 2021-09-22 | Day surgery (SDC) | payer MEDICARE ==
[~2021-09-22] VITALS: Ht 162.6 cm; Wt 81.0 kg
[~2021-09-22] MED LIST changes: +IV RINGERS,LACTATED 1000ML 1,000 ML IV SCH; -LIDOCAINE 2% PF 5 ML VIAL. ONE
[2021-09-22 13:02] VITALS: BP 127/66
--- NOTE | 2021-09-22 14:25 | PDOC4 ---
PROCEDURE Procedure Colonoscopy with biopsies, cold snare polypectomy, tattoo. Indication: TODD, negative EGD. Meds: per anesthesia Findings: ORIANA normal. --'Scope advanced to cecum. Prep adequate. mucosa normal. Scattered diverticula, sigmoid. --Mass in ascending c/w adenoca. Biopsied and tattooed. Apparent fistula? Took one biopsy blindly from within this area. --6mm polyp, sigmiod removed with cold snare; unclearly retrieved. Exam otherwise normal. Frank. well. IMP: Mass in ascending, biopsied and tattooed. Sigmoid polyp, Diverticulosis. REC: await biopsies. OK to resume diet and meds. F/u with me in 2 weeks. DAVI VILLANUEVA MD Sep 22, 2021 14:25
[2021-09-22 14:59] VITALS: BP 112/63
--- NOTE | 2021-09-24 19:07 | PATHOLOGY ---
[facility] Accession Number: [id number] . 01 Material submitted: . PART A: colon - ASCENDING COLON MASS BIOPSY. Modifiers: ascending PART B: colon - ASCENDING COLON MASS FISTULA BIOPSY. Modifiers: ascending PART C: colon - DESCENDING COLON POLYP. Modifiers: descending . 01 Clinical history: . DIARRHEA COLONOSCOPY . 02 Diagnosis: A. Colon biopsies, ascending colon mass: - Adenocarcinoma, moderately-well differentiated, ulcerated. . B. Colon biopsies, ascending colon mass fistula biopsy: - Adenocarcinoma, moderately-well differentiated, and segment of small intestine mucosa showing subacute and chronic inflammation. . C. Colon biopsy, descending colon polyp: - Tubular adenoma. . (KIANAM:kate; 09/24/2021) [facility] 09/24/2021 1559 Local . 02 Comment: Sections of the ascending colon mass biopsy reveal a malignant epithelial neoplasm, comprised of malignant glands which irregularly infiltrate a reactive desmoplastic stroma. The malignant glands show a focal gland within gland cribriform arrangement. There are segments of acute inflammatory exudate consistent with ulceration. The findings are supportive of a diagnosis of moderately-well differentiated colorectal adenocarcinoma. . Sections of the ascending colon mass fistula biopsy reveal 2 biopsy segments, one of which shows irregular malignant glands infiltrating a reactive desmoplastic stroma. The other biopsy segment consists of small intestine mucosa showing mild subacute and chronic inflammation. . Sections of the descending colon biopsy reveal a tubular adenoma showing no high-grade dysplasia or evidence of malignancy. . The case is also examined by Dr. Hogue, who concurs with the diagnoses. The results are reported to Dr. Mena on 09/24/2021 at 1:22 PM. . (KATHERINE:kate; 09/24/2021) . 02 Electronically signed: . Elijah Evans MD, Pathologist NPI- [id number] . 01 Gross description: . A. The specimen is received in formalin, labeled "Burton, Mishel, ascending colon mass BX". Received are multiple segments of pale espinosa tissue ranging in size from 0.2 cm to 0.6 cm in maximum dimensions. The specimen is submitted entirely in cassette A1. . B. The specimen is received in formalin, labeled "Burton, Mishel, ascending colon mass fistula BX". Received are 2 segments of pale espinosa tissue ranging in size from 0.2 cm to 0.3 cm in maximum dimensions. The specimen is submitted entirely in cassette B1. . C. The specimen is received in formalin, labeled "Burton, Mishel, descending colon polyp". Received is a segment of pale espinosa tissue measuring 0.5 cm in maximum dimensions. The specimen is submitted entirely in cassette C1.([facility]; 09/23/2021) [facility] 09/23/2021 1548 Local . 02 Pathologist provided ICD-10: C18.2, K52.9, D12.4 . 02 CPT . 075087, 843086, 199091 Specimen Comment: A courtesy copy of this report has been sent to [phone], [phone] Specimen Comment: [id number] Specimen Comment: Report sent to / DR WALL [facility]formed at: [facility] [address] [facility] [address] [address] [facility] [address], [place] [id number] MD Rm Cho MD Phone: [phone] Performed at: [facility] [address] [place], [place] [id number] MD Elijah Evans MD Phone: [phone]
== END | disposition home or self-care (01) ==
LOC: SURG 12:37
PROVIDERS: ATTEND Internal Medicine Gastroenterology
DX: D50.9 Iron deficiency anemia, unspecified (principal); K57.30 Diverticulosis of large intestine without perforation or abscess without bleeding; K63.89 Other specified diseases of intestine; D12.4 Benign neoplasm of descending colon; K52.9 Noninfective gastroenteritis and colitis, unspecified; C18.2 Malignant neoplasm of ascending colon; E78.00 Pure hypercholesterolemia, unspecified; Z90.49 Acquired absence of other specified parts of digestive tract; Z98.890 Other specified postprocedural states; Z87.440 Personal history of urinary (tract) infections; Z79.899 Other long term (current) drug therapy; Z91.041 Radiographic dye allergy status; Z88.5 Allergy status to narcotic agent; Z88.8 Allergy status to other drugs, medicaments and biological substances
CPT/HCPCS: 45380; 45381; 45385; 88305; C1713; J2704